=== PATIENT | male | born 1935 | race Caucasian/White ===

== ENCOUNTER 2018-08-27 11:27 | Inpatient (IN) ==
--- NOTE | 2018-08-27 12:04 | HISTORY AND PHYSICAL ---
PATIENT PROFILE: This is an 83-year-old white male, well known to me. PAST MEDICAL HISTORY: 1. Coronary artery disease. 2. Diabetes mellitus type 2. 3. Diffuse peripheral vascular disease. 4. 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 He has a history of benign prostatic hypertrophy, prostatitis. He had a history of diabetes mellitus type 2, history of cataracts surgery on 10/12/2013, history of chronic diastolic heart failure, history of chronic atrial fibrillation, history of hypercholesterolemia, history of osteoarthritis. 5. Peripheral vascular disease. 6. Fractured hip. PAST SURGICAL HISTORY: 1. ICD placement in November of 2008. 2. Double-vessel bypass in January of 2008. 3. Polypectomy. 4. Replacement defibrillator in December 2012. 5. Cataract surgery 2013. 6. Right hip surgery in 2016. SOCIAL HISTORY: Born in [facility]. Lived there most of his life. He is , 2 children. Rare alcohol drink. Does not use tobacco; quit in 2009. Former smoker; 2 packs a day for over 40 years. FAMILY HISTORY: Father age 73 from CVA, kidney failure. Mother at age 92 of a stroke. Father and mother with history of hypertension, heart problems and cancer. REVIEW OF SYSTEMS: General: No weight gain or loss. No fever or chills. HEENT: Unremarkable. Respiratory: No increased work of breathing or dyspnea. Cardiovascular: No chest pain or tachy palpitation. GI/: Unremarkable. Musculoskeletal/Neurologic: No focal complaints. He presents just with general weakness. His blood pressure still seems to be low. He is dropping things. His balance is poor. He denies fever or chills. Denies any pleuritic or squeezing or pressure chest pain. No hematochezia or hematuria. PHYSICAL EXAM: GENERAL: In my office, he is awake and alert. HEENT: Pupils are equal and round. Conjunctivae pink. NECK: CVP less than 6 cm. LUNGS: Clear in all lung ricketts. CARDIOVASCULAR EXAM: Regular rhythm and rate without murmur or S3. ABDOMEN: Soft, nontender, nondistended. SKIN: Warm and dry. No pedal edema. ASSESSMENT AND PLAN: 1. Just general weakness and hypotension. We are going to have to adjust his medications. I will look and see what his electrolytes and magnesium look like. I am also going to check cardiac enzymes, troponin and CPK, as well as thyroid and cortisol level, B 12 and folate. I will give him some fluids. He has not been drinking or eating much. He has lost some weight. 2. History of coronary artery disease. Aware. We will make sure there is no active ischemia. 3. Diabetes mellitus type 2. Will check hemoglobin A1c. Check pattern sugars. 4. Diffuse peripheral vascular disease, aware. 5. We have been following pancreatic cyst. 6. History of benign prostatic hypertrophy. 7. History of chronic atrial fibrillation. 8. History of osteoarthritis. We may need to check another echocardiogram and just look at his left ventricular function. cc: Miguel Angel Mcintosh MD
[2018-08-27] MEDS ORDERED: MILK OF MAGNESIA PO PRN (12:43)
[2018-08-27] MEDS ORDERED: TYLENOL PO PRN (12:43)
[2018-08-27] MEDS ORDERED: ZOFRAN IV PRN (12:43)
[2018-08-27] MEDS ORDERED: DULCOLAX PR PRN (12:43)
--- NOTE | 2018-08-27 13:01 | EKG Report ---
Test Performed on : 08/27/2018 12:42:21 PM Test Reason : chest pain Blood Pressure : / mmHG Vent. Rate : 081 BPM Atrial Rate : 136 BPM P-R Int : 000 ms QRS Dur : 172 ms QT Int : 456 ms P-R-T Axes : 000 264 092 degrees QTc Int : 529 ms Ventricular-paced rhythm 100% paced Biventricular pacemaker detected Abnormal ECG When compared with ECG of 29-MAY-2017 05:40, No significant change was found Confirmed by Barbara COHEN, Sukhdev Johnson ([id number]) on 08/27/2018 2:00:42 PM
[2018-08-27 13:49] LABS: BASO# 0.01 X1000 (0.0-0.2); BASO% 0.2 % (0.0-0.8); EOS# 0.04 X1000 (0.0-0.7); EOS% 0.6 % (0.0-10.0); HEMATOCRIT 42.2 % (42.0-52.0); HEMOGLOBIN 13.7 g/dL (14.0-18.0); LYMPH# 1.68 X1000 (1.2-3.4); LYMPH% 25.6 % (20.5-51.1); MCH 33.3 PG (27-31); MCHC 32.5 g/dL (33-37); MCV 102.4 FL (81-99); MONO# 0.57 X1000 (0.11-0.59); MONO% 8.7 % (1.7-9.3); NEUT# 4.27 X1000 (1.4-6.5); NEUT% 64.9 % (42.2-75.2); PLT 121 X1000 (130-400); RBC 4.12 XMIL (4.7-6.1); RDW 13.8 % (11.5-14.5); WBC 6.57 X1000 (4.8-10.8)
[2018-08-27 14:00] LABS: INR 1.54; PROTIME 19.7 Seconds (11.0-16.0)
[2018-08-27 14:01] LABS: PTT 40.8 Seconds (22.3-41.8)
[2018-08-27 14:21] LABS: AGAP 11; ALB/GLOB RATIO 1.4; ALBUMIN 4.3 g/dL (3.5-5.0); ALKALINE PHOSPHATASE 78 U/L (32-122); BUN 41 mg/dL (8-22); CALCIUM 9.5 mg/dL (8.8-10.2); CHLORIDE 101 mmol/L (98-107); CK PROFILE 44 U/L (24-204); COSMO 300; CREATININE 0.9 mg/dL (0.7-1.2); ESTIMATED GFR > 60; GLUCOSE 180 mg/dL (70-104); GOT 25 U/L (10-34); GPT 18 U/L (10-44); POTASSIUM 5.1 mmol/L (3.5-5.1); SODIUM 143 mmol/L (136-145); TCO2 31 mmol/L (25-35); TOTAL BILIRUBIN 1.17 mg/dL (0.20-1.00); TOTAL PROTEIN 7.4 g/dL (6.3-8.3)
[2018-08-27 14:50] LABS: T4 5.15 ug/dL (4.60-12.00); TSH 1.73 uIUmL (0.27-4.20)
[2018-08-27] MEDS: NS 1,000 ML IV SCH (16:46)
[2018-08-27] MEDS: TYLENOL PO SCH ×2 (16:46→22:10)
[2018-08-27] MEDS: FLOMAX PO SCH (20:23)
[2018-08-27] MEDS: PRILOSEC PO SCH (20:23)
[2018-08-27] MEDS: COLACE PO SCH (20:23)
[2018-08-27] MEDS: BETAPACE PO SCH (20:23)
[2018-08-27] MEDS: ELIQUIS PO SCH (20:23)
[2018-08-28] MEDS: TYLENOL PO SCH ×2 (05:08→12:29)
--- NOTE | 2018-08-28 08:25 | Diag Imaging Result Doc PS360 ---
EXAM: CHEST-2 VIEWS - 08/28/2018 HISTORY: weakness, copd TECHNIQUE: Chest two views COMPARISON: 07/25/2018 FINDINGS: Heart size appears mildly enlarged and stable. There are sternal wires from previous surgery and transvenous cardiac pacemaker again seen. The lungs appear essentially clear. There are small right pleural effusion versus mild pleural thickening similar to prior. There is no pneumothorax identified. IMPRESSION: Stable exam compared to prior. Mild cardiomegaly. Small right pleural effusion versus mild pleural thickening Electronically signed by Robert Acosta 08/28/2018 8:23 AM
[2018-08-28] MEDS ORDERED: LASIX IV ONE (08:31)
[2018-08-28] MEDS ORDERED: LASIX PO PRN (08:47)
[2018-08-28] MEDS ORDERED: ELIQUIS PO SCH (09:00)
--- NOTE | 2018-08-28 09:09 | PROGRESS NOTE ---
DATE: 08/28/2018 SUBJECTIVE: Mr. Christy is feeling better, still short of breath with any exertion. OBJECTIVE: Vital signs: Temp is 97.6, pulse 76, respirations 27, blood pressure 125/69. HEENT: Pupils are equal and round. Lungs: Clear in all lung ricketts. Cardiovascular: Regular rhythm and rate without murmur or S3. Abdomen: Soft. Skin: Warm and dry. Extremities: No pedal edema. STUDIES: His chest x-ray from this morning is stable, mild cardiomegaly, small right pleural effusions versus mild pleural thickening. His EKG showed paced rhythm. Echocardiogram done on the 25 of July: Technically difficult study. The aortic valve demonstrated mild sclerosis, trileaflet. The valve opening appeared to be mildly reduced. Peak gradient was 24 mmHg, mean gradient was 12 mmHg consistent with mild aortic stenosis. Tricuspid and pulmonic valves are without evidence of structural abnormality. PA pressure was estimated at 45-50 mmHg. Borderline left ventricular enlargement, upper wall thickness demonstrated. Estimated left ventricular ejection fraction 35% to 40% in the setting of very mild global hypokinesis, moderate basilar inferior wall hypokinesis. Left atrium mildly enlarged. ASSESSMENT AND PLAN: 1. He has mild systolic congestive heart failure. He has ICD pacemaker that appears to be predominantly paced rhythm. His blood pressure was low, and so I have backed down on some of his afterload. I will restart his Lasix and spironolactone. I will ask Dr. Kimbrough, who is his filling technician, to help assist in the direction we need to go. I think he feels a little better. 2. Coronary artery disease. Aware. No sign of active ischemia. 3. Diabetes mellitus type 2. Sugar is under good control. 4. Diffuse peripheral vascular disease. Aware. 5. We are following the pancreatic cyst which, thus far, appears to be benign. 6. History of benign prostatic hypertrophy. 7. Chronic atrial fibrillation. 8. Osteoarthritis. REVIEW OF HIS ORDERS: We will give him a dose of Lasix now IV and I will put him back on his spironolactone. He wanted to try a different pain medicine for his arthralgia. We may try some tramadol. cc: Miguel Angel Mcintosh MD
[2018-08-28] MEDS: ZOLOFT PO SCH (09:25)
[2018-08-28] MEDS: FLOMAX PO SCH ×2 (09:25→20:32)
[2018-08-28] MEDS: BETAPACE PO SCH ×2 (09:25→20:32)
[2018-08-28] MEDS: ALDACTONE PO SCH (09:25)
[2018-08-28] MEDS: PEPCID PO SCH (09:25)
[2018-08-28] MEDS: COLACE PO SCH ×2 (09:25→20:31)
[2018-08-28] MEDS: PRILOSEC PO SCH ×2 (09:25→20:32)
[2018-08-28] MEDS: ELIQUIS PO SCH ×2 (09:25→20:31)
[2018-08-28] MEDS: NS 1,000 ML IV SCH (09:26)
[2018-08-28] MEDS: PRINIVIL PO SCH ×2 (09:26→20:31)
[2018-08-28 10:13] LABS: AGAP 7; BUN 37 mg/dL (8-22); CALCIUM 8.7 mg/dL (8.8-10.2); CHLORIDE 100 mmol/L (98-107); COSMO 294; CREATININE 0.9 mg/dL (0.7-1.2); ESTIMATED GFR > 60; GLUCOSE 211 mg/dL (70-104); POTASSIUM 4.7 mmol/L (3.5-5.1); SODIUM 140 mmol/L (136-145); TCO2 33 mmol/L (25-35)
[2018-08-28 10:32] LABS: INR 1.47; PROTIME 18.9 Seconds (11.0-16.0)
[2018-08-28 10:35] LABS: D-DIMER 1.39 ug/mLFEU (0.0-0.52)
[2018-08-28 10:40] LABS: ALLEN TEST YES; BE 4.5 mmoll (-3.0-3.0); BLOOD TYPE ARTERIAL; HCO3-(ACT) 28.4 mmoll (20.0-26.0); METHB 1.2 % (0.0-1.5); O2(CT) 17.9 mL/dL (15.0-23.0); PO2(98.6) 101 mmHg (60-100); SAMPLE BLOOD; SAO2 98.9 % (95.0-100.0); THB 13.3 g/dL (11.5-17.4); pH(98.6) 7.31 (7.35-7.45)
[2018-08-28 10:41] LABS: MODALITY CANNULA; PCO2(98.6) 65 mmHg (35-45)
--- NOTE | 2018-08-28 11:06 | CARDIOLOGY CONSULTATION ---
DATE: 08/28/2018 REQUESTING PHYSICIAN: Miguel Angel Mcintosh MD REASON FOR CONSULTATION: Patient with progressive weakness, fatigue, shortness of breath, and shakiness. HISTORY OF PRESENT ILLNESS: Mr. Christy is an 84-year-old male who is normally followed by Dr. Kimbrough at their office. He presents with 1 week of progressive rapid decline in his functional capacity associated with exertional dyspnea. The patient denies having any chest pain. He has not had any recent falls. The patient was really not able to walk across the room and the decided to bring him to the Emergency Room for evaluation. After being brought to the hospital yesterday at about 10 o'clock or so he seems to have done better overnight. He is not having any complaints this morning. He is a little more awake. According to the he drifts into sleep and tends to sit down on the couch all day long. The patient denies having any chest pain. PAST MEDICAL HISTORY: His past history is positive for severe coronary artery disease. He has had previous bypass surgery. He has hypertension and hyperlipidemia. He has persistent atrial fibrillation or permanent atrial fibrillation. He has diabetes mellitus and peripheral vascular disease. He also vascular disease including the right axillary artery that is occluded. PAST SURGICAL HISTORY: He has had a previous pacemaker defibrillator implanted in the past. Most recent check was 06/16/2018 and that showed that he was in VVIR mode. The device is working properly. He is paced 94% of the time. No other issues with the pacemaker. This is a [employer]ator AP2781/40 [employer] Generator. The serial number is [id number]. This is a [employer] model. HOME MEDICATIONS: His home medications include apixaban 5 mg twice a day, docusate, furosemide 40 mg as directed, magnesium hydroxide, Zoloft 25 mg daily, Sotalol 80 mg twice a day, spironolactone 25 mg every other day, tramadol, zolpidem, tamsulosin, and amitriptyline. He also takes lisinopril 5 mg twice a day. REVIEW OF SYSTEMS: Other than the progressive deterioration nothing major. He had a heart cath in September of 2008 that showed a patent vein graft to the LAD , 40% stenosis of a vein graft to the marginal branch, and right coronary artery angiographically normal. The ejection fraction has been low. The last echo that we have recorded in the system shows an ejection fraction of 35% per Dr. Kimbrough in 2017. A myocardial perfusion stress test by Dr. Kimbrough on 07/25/2018 showed fixed mildly diminished activity in the apical inferior wall presumably due to soft tissue attenuation. No convincing scintigraphic evidence of ischemia. Ejection fraction of 20% by that study. Carotid Doppler ultrasound on 07/25/2018 showed [id number] burden of plaque in the bilateral carotid artery system with a retrograde right vertebral and antegrade left vertebral. A chest x-ray done today shows mild cardiomegaly and a small right pleural effusion. SOCIAL HISTORY: He has been to his for 33 or 34 years. This is his second . He is retired from [employer]. 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 He is busy. However, over the past few months he has slowed down. He has 3 children from a previous marriage. He quit smoking about 9 years ago. He is not drinking at this time. FAMILY HISTORY: Noncontributory. PHYSICAL EXAMINATION: Vital Signs: Blood pressure is 125/69, temperature 97.6 , pulse 76, and respirations 24. General: He is awake, alert, elderly, and somewhat frail- looking. No distress. HEENT: Unremarkable. Chest: Diminished breath sounds at the bases with some rhonchi in the left lung. Cardiovascular: Heart sounds are regular and rhythmic. I do not hear a definite gallop or murmur. Abdomen: The abdomen is nontender and soft. Extremities: The extremities show decreased pulses. No edema. Especially, the right upper extremity pulses are diminished. Neurological: Somewhat sluggish,although, he follows commands and moves all extremities.Asterixis appears to be present. DIAGNOSTIC DATA: Blood work: Sodium is 143, potassium 5.1, BUN 41, and creatinine 0.9. IMPRESSION: 1. A patient who presents with listlessness, weakness, fatigue, and increasing exertional dyspnea. This may be multifactorial. Probably low cardiac output state plus some metabolic issues. The patient has been having some shakiness and he looks as if he has asterixis. Likely component of metabolic encephalopathy. 2. Former smoker with chronic obstructive pulmonary disease. 3. Severe coronary artery disease with prior surgery. 4. Permanent atrial fibrillation. 5. Status post automatic implantable cardioverter defibrillator implantation for ischemic cardiomyopathy. 6. Possible prerenal azotemia. His hemoglobin level was 13.7 at the time of this admission. RECOMMENDATIONS: At this time we will check a number of things including an ammonia level and arterial blood gases to make sure he is not retaining carbon dioxide. We will check a pro BNP level, a D-dimer, and further advise will be forthcoming. Thank you for asking us to participate in his evaluation. We may want to do a followup echocardiogram also on him to make sure that his ejection fraction has not dramatically dropped. cc: MD Miguel Angel Novak MD MTDD
[2018-08-28] MEDS: GLUCOPHAGE PO SCH (18:12)
[2018-08-28] MEDS ORDERED: TYLENOL PO PRN (18:19)
--- NOTE | 2018-08-28 22:06 | CONSULTATION ---
DATE OF CONSULTATION: 08/28/2018 REASON FOR CONSULTATION: Abnormal ABG. HISTORY OF PRESENT ILLNESS: This is an 83-year-old male with a medical history of systolic congestive heart failure, atrial fibrillation, coronary artery disease , diabetes, peripheral vascular disease with occluded right axillary artery, benign pancreatic cyst, BPH, and hypercholesteremia. He has been directly admitted from Dr. Mcintosh's office to the CIC unit with worsening generalized weakness, SOB and lethargy over a week. Patient is resting quietly in the bed with BiPAP on at this time. He coughs occasionally with scant phlegm and has to remove the facial mask to wipe the sputum. His reports he has been awake for over 2 to 3 hours at an earlier time due to friends' visit. Most of information is from patient's . She reports patient couldn't stay awake for such a long time before hospitalization. Patient was lethargic and kind of confused most of time in the past week. He was so weak that he could only walk a few steps, then he had to take a break to catch his breath. Patient has poor appetite, dizziness, chronic dry cough with sputum rarely and wheezing. He has occasional bronchitis for over 28 years. He is not taking any inhalers at home. He has no fever, snoring, morning headache, chest pain, pedal edema or PND. PAST MEDICAL AND MEDICAL HISTORY: 1. Systolic congestive heart failure, echocardiogram on 08/27/2018 shows estimated EF 35-40%. 2. Atrial fibrillation, persistent or permanent, s/p an ICD placement in november 2008 and defibrillator replacement in December 2012; the last checkup in 01/2017 shows the device is working properly. 3. Coronary artery disease, severe with significant left ventricular dysfunction , s/p double vessel bypass in January 2008. 4. Diabetes mellitus type 2. 5. Diffuse peripheral vascular disease, including occluded right axillary artery. 6. Benign pancreatic cyst 7. Benign prostatic hyperplasia with obstructive voiding. 8. Hypercholesterolemia. 9. Right femur neck fracture s/p bipolar hemiarthroplasty on 05/27/2017. 10. Polypectomy 11. Bilateral cataract surgery in 2013 SOCIAL HISTORY: The patient is and lives with family. He used to smoke 1 to 2 packs per day for about 55 years, and quit in 05/2010. He used to drink heavily with hard liquor and currently drinks about 4 oz of [place] weekly; he has no history of illicit drug use. FAMILY HISTORY: Positive for kidney failure, CVA, and lung cancer. REVIEW OF SYSTEMS: A 10-point review of systems was conducted, and the pertinent is listed within the HPI, otherwise noncontributory. PHYSICAL EXAMINATION: Vital Signs: Temperature 97.3, blood pressure 126/75, pulse 79, respiratory rate 21, oxygen saturation 100% on BiPAP 15/6 with FiO2 30%. HEENT : Atraumatic. Trachea midline. Mucosa pink and slightly dry. Respiratory: Mild rhonchi noted bilaterally. Diminished breathing sounds bibasilarly. Cardiovascular: Regular rate and rhythm, without murmur noted. Gastrointestinal: Soft, nontender, nondistended. Normoactive bowel sounds in all 4 quadrants. Extremities: No pedal edema. No cyanosis. No clubbing. Dorsalis pedal pulses 2+ bilaterally. Neurologic: Alert and oriented x2. He is confused with the time and situation; Speech fluent. IMAGING DATA: Chest x-ray revealed small right pleural effusions vs. mild pleural thickening. LAB DATA: Sodium 140, potassium 4.7, chloride 100, carbon dioxide 33, BUN 37, creatinine 0.9, glucose 211. ProBNP 1799. ABG: pH 7.31, pCO2 of 65, PO2 101, HCO3 28.4, base excess of 4.5, and oxyhemoglobin 95.0. ASSESSMENT AND PLAN: This is an 84-year-old male with a medical history of systolic congestive heart failure, atrial fibrillation, coronary artery disease , diabetes, peripheral vascular disease with occluded right axillary artery, benign pancreatic cyst, BPH, hypercholesteremia, and femur fracture. He has been admitted to the [facility] with worsening generalized weakness with confusion and respiratory failure. 1. Generalized weakness, multifactorial, likely secondary to congestive heart failure, severe coronary artery disease, COPD, ongoing drinking and poor appetite. 2. Acute hypoxemic likely on chronic Hypercapnic respiratory failure. Patient is a former heavy smoker. He likely has COPD, but no exacerbation at this time. He needs an outpatient PFT. Continue BiPAP; supplemental oxygen as needed; Consider bronchodilators if needed; follow up ABG and CXR; consider CTPA to rule out PE. 3. Continue GI and DVT prophylaxis. Thank you for the courtesy of this consult. Dictated by BRENT Celis for Pasha De MD cc: BRENT Celis MD Allen J. Schmidt, MD [facility]
[2018-08-29 04:57] LABS: ALLEN TEST YES; BE 8.7 mmoll (-3.0-3.0); BLOOD TYPE ARTERIAL; HCO3-(ACT) 31.6 mmoll (20.0-26.0); METHB 1.4 % (0.0-1.5); O2(CT) 15.2 mL/dL (15.0-23.0); O2HB 92.9 % (95.0-99.0); PO2(98.6) 80 mmHg (60-100); SAMPLE BLOOD; SAO2 96.5 % (95.0-100.0); THB 11.6 g/dL (11.5-17.4); pH(98.6) 7.33 (7.35-7.45)
[2018-08-29 04:58] LABS: MODALITY BI PAP
[2018-08-29 04:59] LABS: PCO2(98.6) 70 mmHg (35-45)
[2018-08-29 06:26] LABS: AGAP 9; BUN 31 mg/dL (8-22); CALCIUM 8.6 mg/dL (8.8-10.2); CHLORIDE 100 mmol/L (98-107); COSMO 294; ESTIMATED GFR > 60; GLUCOSE 148 mg/dL (70-104); MAGNESIUM 1.9 mg/dL (1.5-2.7); POTASSIUM 4.4 mmol/L (3.5-5.1); SODIUM 143 mmol/L (136-145); TCO2 34 mmol/L (25-35)
[2018-08-29] MEDS: GLUCOPHAGE PO SCH ×2 (08:14→17:50)
[2018-08-29] MEDS: ELIQUIS PO SCH ×2 (08:14→20:01)
[2018-08-29] MEDS: PRILOSEC PO SCH ×2 (08:14→20:02)
[2018-08-29] MEDS: ZOLOFT PO SCH (08:14)
[2018-08-29] MEDS: COLACE PO SCH ×2 (08:15→20:01)
[2018-08-29] MEDS: FLOMAX PO SCH ×2 (08:15→20:02)
[2018-08-29] MEDS: PEPCID PO SCH (08:15)
--- NOTE | 2018-08-29 08:35 | Diag Imaging Result Doc PS360 ---
EXAM: CHEST-2 VIEWS 08/29/2018 HISTORY: chf, pleural effusion TECHNIQUE: PA and lateral chest COMMENT: There is blunting of the right costophrenic angle. This was also present at the time the previous study of 08/28/2018. There may be slightly more fluid on the right than on the previous study however. The heart size is at the upper limits of normal. Overall otherwise there has been no significant change in the appearance the chest. IMPRESSION: Right pleural effusion. Electronically signed by Tk Casey 08/29/2018 8:33 AM
[2018-08-29] MEDS: PRINIVIL PO SCH ×2 (08:48→20:01)
[2018-08-29] MEDS: BETAPACE PO SCH ×2 (08:49→20:02)
[2018-08-29] MEDS ORDERED: LASIX IV ONE (09:08)
--- NOTE | 2018-08-29 09:42 | PROGRESS NOTE ---
DATE: 08/29/2018 SUBJECTIVE: Mr. Christy felt a little better yesterday, but today he feels still he is fine at rest, but with any exertion he has quite a bit of dyspnea. He remains afebrile. OBJECTIVE: Vital Signs: Temperature 98.1 degrees, pulse 80, respirations 18, blood pressure 119/55. HEENT: Pupils were equal. Neck: He has a little more distention of neck veins today. CVP I am guessing around 10 cm from his left atrium. Lungs: Clear anterolateral. I do not hear any wheezing. No prolonged expiratory phase. He is on nasal O2. Cardiovascular: Regular rhythm and rate. PMI is nondisplaced. Abdomen: Soft. Extremities: No pedal edema. DIAGNOSTIC STUDIES: His chest x-ray from this morning still has a little right pleural effusion. Note, his D-dimer was a little elevated. On review of his lab from this morning, hematocrit and hemoglobin looked good, hematocrit 42, hemoglobin 13. His electrolytes looked good. Magnesium 1.9. Sodium 143, potassium 4.4, chloride 100, BUN 31, creatinine 1.0. Blood sugars 211, 161, 204 and 148, in sequence. ASSESSMENT AND PLAN: 1. He has underlying chronic obstructive pulmonary disease and he appears to have predominantly diastolic dysfunction. We are going to get a MUGA scan to look at his systolic performance, and I think we will get a CT angiogram and look at his lungs considering the possibility of pulmonary thromboemboli. Would like to look at his right-sided pressures as well to see if there is an element of cor pulmonale. Blood pressures have come up. He was running in the 80s and 90s. Blood pressure this morning was 119/55. His volume status looks pretty good. 2. History of coronary artery disease. Aware. I do not see any evidence of active ischemia. 3. Diabetes mellitus type 2. Continue to follow sugars, pattern sugars, sliding scale. 4. History of diffuse peripheral vascular disease. 5. He has a pancreatic cyst that appears benign and we have been following this for a couple of years. 6. Benign prostatic hypertrophy. 7. Chronic atrial fibrillation. There is a paced rhythm. I think it is single chamber paced. To recall, he has had an ICD placement in November 2008, double-vessel bypass in January 2008, and he had his defibrillator replaced in December 2012. 8. History of hypercholesterolemia. On review of his orders, he is on Eliquis 5 mg b.i.d. He is on Dulcolax 10 mg per rectum daily and docusate or Colace 100 mg b.i.d., Pepcid 20 mg a day, Lasix 40 mg a day, Prinivil 5 mg b.i.d., Glucophage 500 mg b.i.d., Prilosec 40 mg b.i.d., Zoloft 25 mg a day, Betapace 80 mg b.i.d., spironolactone 25 mg a day, and Flomax 0.4 mg b.i.d. cc: Miguel Angel Mcintosh MD
--- NOTE | 2018-08-29 09:51 | ECHO REPORT ---
ORDER DATE: 08/27/2018 INTERPRETING PHYSICIAN: DR. Leonid Alvarenga ECHOCARDIOGRAPHIC MEASUREMENTS: Interventricular septum: 0.9 cm. Left ventricular posterior wall: 0.9 cm. Diastolic diameter: 5.4 cm. Left atrium: 4.6 cm. Left ventricular systolic diameter 4.6. SUMMARY OF THE 2-DIMENSIONAL IMAGING: Technically suboptimal study. Very poor parasternal windows. Pacing leads were noted in the right chamber. There is biatrial enlargement. Mitral valve was normal. Tricuspid valve was normal. Aortic valve leaflets not well visualized. Pulmonic valve not well visualized. There is mild mitral regurgitation. Mild tricuspid regurgitation. Peak velocity across the tricuspid valve was 3 m/ sec. Pulmonary artery systolic pressure of 50 mmHg. Normal left ventricular cavity size. Estimated ejection fraction of 35% to 40% . There is global hypokinesis. Peak velocity across the aortic valve less than 2 m/sec . There is no aortic stenosis. There is mild aortic regurgitation. No pericardial effusion. cc: MD Miguel Angel Beltran MD [facility]
--- NOTE | 2018-08-29 10:47 | Diag Imaging Result Doc PS360 ---
EXAM: CT ANGIOGRM PULMONARY ARTERIES 08/29/2018 HISTORY: Elevated d dimer, shortness of breath TECHNIQUE: This exam was performed using automated exposure control, adjustment of mA or kV according to patient size, and/or use of iterative reconstruction technique. COMMENT: 3-D MIPS were performed. The study is compared with the previous examination of 03/11/2013. There are no filling defects in the pulmonary arteries. There is atherosclerotic calcification in the aorta and extensive calcification in the coronary arteries particularly in the left main coronary artery. There has been previous sternotomy. There is a large right pleural effusion. This is worse than on the previous study of 03/11/2013. There is also a small pleural fluid collection on the left which was not present previously. There is a precarinal node measuring 14 mm which is denser than on the previous examination, although previously this measured 13 mm in diameter. There is a prevascular node present on image 77 which measures 14 to 15 mm in transverse dimension and which was present at the time of the previous examination on image 60 and measured 14 mm at that time. Otherwise there has been no significant change in the appearance of the mediastinum. There are some emphysematous changes particularly in the anterior left upper lobe. There is a tiny nodule on image 55 in the right upper lobe near the pleural surface posterior laterally. This is not identifiable on the previous study. There is some compressive atelectasis particularly in the right lower lobe. There is a lobulated nodule in the lingula on image 101 measuring 10 mm which was not present on the previous study. There are spondylotic changes in the thoracic spine. There has been no significant change in the visualized portions of the abdomen. There are gallstones in the gallbladder. IMPRESSION: No evidence of pulmonary emboli. Right pleural effusion. New pulmonary nodules bilaterally. The possibility of metastatic disease cannot be excluded. Electronically signed by Tk Casey 08/29/2018 10:45 AM
--- NOTE | 2018-08-29 20:18 | PROGRESS NOTE ---
DATE: 08/29/2018 SUBJECTIVE: Patient continues without much shortness of breath at rest. There has been no chest pain. OBJECTIVE: Vital Signs: Blood pressure 107/50, heart rate 81, oxygen saturation 92% on room air. The patient currently on nasal cannula oxygen at 1 L/minute. Neck: Jugular venous distention is present suggesting elevated central venous pressure. Chest: Auscultation of the chest reveals some diminished breath sounds in the right base posteriorly. Above this region is an area of coarse inspiratory crackles. There is a small amount of inspiratory crackles in the left base. There is somewhat diminished breath sounds diffusely in other regions. Cardiac Exam: Reveals irregular rate and rhythm without appreciable murmur or gallop. Extremities: Without edema. LABORATORY DATA: Includes arterial blood gas with pH of 7.33, pCO2 of 70, PO2 of 80 with a bicarb of 31.6 on BiPAP. Sodium 143, potassium 4.4, chloride 100, carbon dioxide 34, BUN 31, creatinine 1.0, glucose 148. Pro B-natriuretic peptide level 1799. Albumin on admission 4.3. D-dimer abnormal. Chest CT scan obtained reports no evidence of pulmonary embolus. A sizable right pleural effusion is reported. There are a few pulmonary nodules of questionable nature. Echocardiography is technically difficult. Left ventricular ejection fraction reported at 35 to 40 percent. Mild tricuspid regurgitation reported. There is moderate pulmonary hypertension with estimated systolic PA pressure of 40. MUGA scan reports left ventricular ejection fraction 50%. IMPRESSION: 1. Respiratory failure which is probably multifactorial with contribution from chronic obstructive pulmonary disease, congestive heart failure predominantly right-sided and pleural effusion. 2. Chronic obstructive pulmonary disease. 3. Atherosclerotic coronary disease with history of previous coronary bypass. The patient has ischemic cardiomyopathy of mild to moderate severity. There does not appear to be a significant decrease in his left ventricular systolic performance. In fact, MUGA scan suggests improvement his left ventricular systolic function. 4. Pulmonary nodules of questionable significance. 5. Diabetes mellitus type 2. 6. Peripheral vascular disease. 7. Chronic atrial fibrillation. 8. Status post implantable defibrillator which has been upgraded to a biventricular pacer implantable cardioverter defibrillator. RECOMMENDATIONS: 1. Continue diuresis with intravenous Lasix. 2. Continue to evaluate and manage for COPD. 3. Consideration to be given to right thoracentesis. At present he does not appear to be in any distress and thoracentesis may be more considered for diagnostic purposes if felt needed by pulmonary. cc: MD Miguel Angel Woo MD
--- NOTE | 2018-08-29 23:19 | Diag Imaging Result Document ---
PROCEDURE NAME: MUGA (GATED CARDIAC SCAN) - 08/29/2018 INDICATION: Assess LV function secondary to difficult quality echo. PROCEDURE IN DETAIL: Mr. Christy was brought to the nuclear laboratory and had 22.4 mCi of radiotracer injected with usual imaging protocol utilized. FINDINGS: 1. The LV systolic function was calculated to be 50%. 2. There is no clear evidence of wall motion abnormalities. RV function appeared intact as well. 3. No evidence of abnormal extracardiac uptake. 4. On visual inspection, the ejection fraction actually does appear to be more vigorous than 50%, probably in the 55% to 60% range. cc: MD Dread Woods MD
[2018-08-30 05:10] LABS: ALLEN TEST YES; BLOOD TYPE ARTERIAL; HCO3-(ACT) 31.9 mmoll (20.0-26.0); METHB 1.4 % (0.0-1.5); O2(CT) 17.1 mL/dL (15.0-23.0); O2HB 95.5 % (95.0-99.0); PO2(98.6) 117 mmHg (60-100); SAMPLE BLOOD; THB 12.6 g/dL (11.5-17.4); pH(98.6) 7.36 (7.35-7.45)
[2018-08-30 05:11] LABS: PCO2(98.6) 65 mmHg (35-45)
[2018-08-30 05:12] LABS: MODALITY BI PAP
[2018-08-30] MEDS: COLACE PO SCH ×2 (08:22→21:12)
[2018-08-30] MEDS: PEPCID PO SCH (08:22)
[2018-08-30] MEDS: ZOLOFT PO SCH (08:22)
[2018-08-30] MEDS: FLOMAX PO SCH ×2 (08:22→21:13)
[2018-08-30] MEDS: GLUCOPHAGE PO SCH ×2 (08:22→17:48)
[2018-08-30] MEDS: PRILOSEC PO SCH ×2 (08:22→21:13)
[2018-08-30] MEDS: BETAPACE PO SCH ×2 (08:22→21:12)
[2018-08-30] MEDS: ALDACTONE PO SCH (08:22)
[2018-08-30] MEDS: PRINIVIL PO SCH ×2 (08:23→21:13)
[2018-08-30] MEDS: ELIQUIS PO SCH ×2 (08:23→21:12)
[2018-08-30] MEDS ORDERED: LASIX IV SCH (09:00)
--- NOTE | 2018-08-30 10:26 | PROGRESS NOTE ---
DATE: 08/30/2018 Mr. Christy is feeling better today. He has got more energy, a little more strength, breathing more comfortably. OBJECTIVE: VITAL SIGNS: Temperature 98.1 degrees, pulse 74, respirations 16, blood pressure 106/63. HEENT: Pupils are equal and round. LUNGS: Clear in all lung ricketts. Decreased breath sounds in the right base. CARDIOVASCULAR: Regular rhythm and rate without murmur or S3. ABDOMEN: Soft. SKIN: Warm and dry. Blood sugars 141, 259, 170. ASSESSMENT AND PLAN: 1. Respiratory failure, probably multifactorial, contribution from chronic COPD, systolic and diastolic dysfunction, right-sided pleural effusion. There was some lymphadenopathy appreciated there as well. The right pleural fluid, I am going to ask Dr. De to look at his CT and his pleural fluid and see if we need to tap that. 2. COPD. 3. Coronary artery disease, history of previous coronary bypass. Patient has had ischemic cardiomyopathy, mild to moderate severity. Does not seem to have significant decrease in left ventricular performance. The MUGA scan suggests improvement in the left ventricular systolic function. 4. Pulmonary nodules, questionable significance. 5. Diabetes mellitus type 2. 6. Peripheral vascular disease. 7. Chronic atrial fibrillation, has a pacemaker, rate is controlled. 8. Status post implantable defibrillator which has been upgraded to a biventricular pacer implantable cardioverter defibrillator. Review of his lab from the 30: Hematocrit and hemoglobin look good. His electrolytes, serum creatinine looked good. We will check those again in the morning. We will consult Dr. De to see if he can help look at the CT scan and see if we need to tap his right pleural fluid and the significance of his new pulmonary nodules bilaterally. cc: Miguel Angel Mcintosh MD
--- NOTE | 2018-08-30 23:29 | PROGRESS NOTE ---
DATE: 08/30/2018 CARDIOLOGY FOLLOWUP NOTE: SUBJECTIVE: The patient denies shortness of breath and relates some improvement in how he feels overall. Nevertheless, he continues feeling weak overall. OBJECTIVE: Blood pressure 102/54, heart rate 76, oxygen saturation 100% on low-dose nasal cannula oxygen. Neck vein distention is not discerned. Chest: Auscultation of chest reveals diminished breath sounds in the right base posteriorly. There are a few coarse crackles just above the region of diminished breath sounds in the right base and a few coarse crackles in the left base. Cardiac exam: Reveals a regular rate and rhythm without appreciable murmur or gallop. There is no evidence of peripheral edema. IMPRESSION: 1. Respiratory failure which is probably multifactorial with combination for chronic obstructive pulmonary disease, congestive heart failure, predominantly right sided, and pleural effusion. 2. Chronic obstructive pulmonary disease. 3. Atherosclerotic coronary artery disease with history of previous coronary bypass grafting. The patient has ischemic cardiomyopathy of mild severity. Based on noninvasive studies, his left ventricular systolic performance has not decreased and, in fact, appears by MUGA scan to have improved. There has been no angina. 4. Small pulmonary nodules of questionable significance. 5. Diabetes mellitus type 2. 6. Peripheral vascular disease. 7. Chronic atrial fibrillation. 8. Status post biventricular pacer/implantable cardioverter defibrillator. RECOMMENDATIONS: 1. Transition to oral Lasix. 2. Consider merits of thoracentesis. Await pulmonary opinion regarding this. cc: MD Miguel Angel Woo MD
[2018-08-31 05:07] LABS: ALLEN TEST YES; BLOOD TYPE ARTERIAL; HCO3-(ACT) 32.7 mmoll (20.0-26.0); O2(CT) 16.1 mL/dL (15.0-23.0); O2HB 95.4 % (95.0-99.0); PO2(98.6) 95 mmHg (60-100); SAMPLE BLOOD; SAO2 98.2 % (95.0-100.0); THB 11.9 g/dL (11.5-17.4); pH(98.6) 7.34 (7.35-7.45)
[2018-08-31 05:09] LABS: PCO2(98.6) 71 mmHg (35-45)
[2018-08-31 05:10] LABS: MODALITY BI PAP
[2018-08-31 06:36] LABS: AGAP 8; ALB/GLOB RATIO 1.6; ALBUMIN 3.5 g/dL (3.5-5.0); ALKALINE PHOSPHATASE 90 U/L (32-122); BUN 26 mg/dL (8-22); CALCIUM 8.9 mg/dL (8.8-10.2); CHLORIDE 100 mmol/L (98-107); COSMO 292; CREATININE 0.9 mg/dL (0.7-1.2); ESTIMATED GFR > 60; GLUCOSE 168 mg/dL (70-104); GOT 18 U/L (10-34); GPT 13 U/L (10-44); MAGNESIUM 1.8 mg/dL (1.5-2.7); POTASSIUM 4.3 mmol/L (3.5-5.1); SODIUM 142 mmol/L (136-145); TCO2 34 mmol/L (25-35); TOTAL BILIRUBIN 0.62 mg/dL (0.20-1.00); TOTAL PROTEIN 5.7 g/dL (6.3-8.3)
--- NOTE | 2018-08-31 08:23 | PROGRESS NOTE ---
DATE: 08/31/2018 SUBJECTIVE: Mr. Christy is feeling a little better, breathing a little better. stated that he had a better day yesterday, and was on his phone and on the internet a little bit. He is still using BiPAP at night. He remains afebrile. OBJECTIVE: Vital Signs: Temperature 97.9 degrees, pulse 72, respirations 15, blood pressure 106/75. HEENT: Pupils are equal and round. Lungs: Clear in all lung ricketts. Cardiovascular Examination: Regular rhythm and rate without murmur or S3. Neck: Neck veins really not distended and CVP appears to be less than 8 cm from the right atrium. Extremities: No pedal edema. Is and Os: Urine output was 1100 mL. Laboratory Data: Blood sugar was 170, 213, 156. ASSESSMENT AND PLAN: 1. Respiratory failure which is probably multifactorial, a combination of chronic obstructive pulmonary disease, congestive heart failure, predominantly right-sided, and pleural effusion on the right. Continue to use BiPAP at night and supplementary oxygen and bronchodilators. Dr. De was consulted. We did do a CT angiogram. He has a right pleural effusion which is significant. There are new pulmonary nodules bilaterally. Possibly, these could represent metastatic disease but we may need to do a right pleurocentesis just to help with a diagnosis. 2. Chronic obstructive pulmonary disease. 3. Atherosclerotic coronary artery disease, history of previous coronary artery bypass grafting. He has ischemic cardiomyopathy of mild severity, noninvasive test on the left ventricle. His MUGA scan seemed to show that his ejection fraction is improved. No sign of angina. 4. Small pulmonary nodules, questionable significance. 5. Diabetes mellitus type 2. 6. Peripheral vascular disease. 7. Chronic atrial fibrillation, rate is controlled. 8. Status post biventricular pacer implantable defibrillator. REVIEW OF HIS ORDERS: He is on Eliquis 5 mg twice a day, Colace 100 mg b.i.d., Pepcid 20 mg a day, Lasix 40 mg a day, Prinivil 5 mg b.i.d., metformin 500 mg b.i.d., Prilosec 40 mg b.i.d., Zoloft 25 mg a day, Betapace 80 mg b.i.d., spironolactone 25 mg which I think he takes every other day, and Flomax 0.4 mg b.i.d. cc: Miguel Angel Mcintosh MD
[2018-08-31] MEDS: PEPCID PO SCH (09:10)
[2018-08-31] MEDS: LASIX PO SCH (09:10)
[2018-08-31] MEDS: ELIQUIS PO SCH (09:10)
[2018-08-31] MEDS: FLOMAX PO SCH ×2 (09:10→20:25)
[2018-08-31] MEDS: PRILOSEC PO SCH ×2 (09:10→20:25)
[2018-08-31] MEDS: ZOLOFT PO SCH (09:10)
[2018-08-31] MEDS: COLACE PO SCH ×2 (09:10→20:25)
[2018-08-31] MEDS: BETAPACE PO SCH ×2 (09:10→20:25)
[2018-08-31] MEDS: GLUCOPHAGE PO SCH ×2 (09:11→17:19)
[2018-08-31] MEDS: PRINIVIL PO SCH ×2 (10:41→20:25)
[2018-09-01 03:41] LABS: ALLEN TEST YES; BLOOD TYPE ARTERIAL; HCO3-(ACT) 34.3 mmoll (20.0-26.0); METHB 1.1 % (0.0-1.5); O2(CT) 16.1 mL/dL (15.0-23.0); O2HB 95.7 % (95.0-99.0); PO2(98.6) 101 mmHg (60-100); SAMPLE BLOOD; SAO2 98.8 % (95.0-100.0); THB 11.9 g/dL (11.5-17.4); pH(98.6) 7.37 (7.35-7.45)
[2018-09-01 03:42] LABS: MODALITY BI PAP; PCO2(98.6) 69 mmHg (35-45)
--- NOTE | 2018-09-01 08:15 | Diag Imaging Result Doc PS360 ---
EXAM: CHEST-PORTABLE INDICATION: copd , pleural effusion TECHNIQUE: One view COMPARISON: 08/29/2018 FINDINGS: There is a small amount of fissural fluid on the right at the lower lung zone. No new consolidation is identified, otherwise. Cardiac silhouette is stable. IMPRESSION: Small amount of fissural pleural fluid on the right. Stable chest, otherwise. Electronically signed by Leonardo Tabares 09/01/2018 8:12 AM
--- NOTE | 2018-09-01 09:09 | PROGRESS NOTE ---
DATE: 09/01/2018 SUBJECTIVE: Mr. Christy did have a good night. He does not tolerate the BiPAP. Did not sleep much at all, so he just wore out. OBJECTIVE: Vital Signs: Temperature 97.5 degrees, pulse 80, respirations 18, blood pressure 114/67. Pupils: Are equal and round. Lungs: Clear in all lung ricketts. Cardiovascular: Regular rhythm and rate without murmur or S3. Abdomen: Soft. Skin: Warm and dry. Urine output 2200 mL. Blood sugar 156, 186, and 210. Chest x-ray: Small amount of official pleural fluid in the right, stable otherwise. ASSESSMENT AND PLAN: 1. Respiratory failure, multifactorial. Combination of chronic obstructive pulmonary disease and congestive heart failure, predominantly right-sided. 2. Pleural effusion on the right, which considering maybe trying to tap. The CT angiogram did not show infiltrate, but showed right pleural effusions and pulmonary nodules bilaterally. 3. Chronic obstructive pulmonary disease. 4. History of atherosclerotic coronary artery disease, previous coronary bypass grafting, ischemic cardiomyopathy of mild severity. He does have some systolic dysfunction, predominantly more right-sided symptoms though. Recent MUGA scan seems to suggest his ejection fraction has improved. 5. Pulmonary nodules questionable significance. 6. Diabetes mellitus type 2. 7. Peripheral vascular disease. 8. Chronic atrial fibrillation, rate is controlled. 9. Status post biventricular pacemaker/implantable defibrillator. It does not appear he can tolerate the BiPAP. I am holding the Eliquis in case Dr. De decides to pursue his pleural fluid. REVIEW OF HIS LAB FROM YESTERDAY: Sodium 142, potassium 4.3, chloride 100, BUN 26, creatinine 0.9, blood sugar 160, 156, 178, and 186. REVIEW OF HIS ORDERS: I do not see any changes at this point. cc: Miguel Angel Mcintosh MD
[2018-09-01 09:34] LABS: BASO# 0.01 X1000 (0.0-0.2); BASO% 0.2 % (0.0-0.8); EOS% 1.5 % (0.0-10.0); HEMATOCRIT 42.5 % (42.0-52.0); HEMOGLOBIN 13.3 g/dL (14.0-18.0); LYMPH% 21.6 % (20.5-51.1); MCH 32.6 PG (27-31); MCHC 31.3 g/dL (33-37); MCV 104.2 FL (81-99); MONO# 0.66 X1000 (0.11-0.59); MONO% 10.2 % (1.7-9.3); MPV 10.9 FL (7.4-10.4); NEUT# 4.32 X1000 (1.4-6.5); NEUT% 66.5 % (42.2-75.2); PLT 127 X1000 (130-400); RBC 4.08 XMIL (4.7-6.1); RDW 13.2 % (11.5-14.5); WBC 6.49 X1000 (4.8-10.8)
[2018-09-01 09:39] LABS: INR 1.2; PROTIME 16.2 Seconds (11.0-16.0)
[2018-09-01 09:40] LABS: PTT 37.5 Seconds (22.3-41.8)
[2018-09-01 10:19] LABS: AGAP 12; BUN 25 mg/dL (8-22); CHLORIDE 97 mmol/L (98-107); COSMO 293; CREATININE 0.9 mg/dL (0.7-1.2); ESTIMATED GFR > 60; GLUCOSE 172 mg/dL (70-104); MAGNESIUM 1.8 mg/dL (1.5-2.7); POTASSIUM 4.6 mmol/L (3.5-5.1); SODIUM 143 mmol/L (136-145); TCO2 34 mmol/L (25-35)
--- NOTE | 2018-09-01 11:13 | Diag Imaging Result Doc PS360 ---
EXAM: CHEST-2 VIEWS INDICATION: POST US THORACENTESIS TECHNIQUE: 2 views COMPARISON: 09/01/2018 FINDINGS: There is no evidence of pneumothorax status post right thoracentesis. The fissural fluid seen on the previous study has grossly resolved as a result of the thoracentesis. No new consolidation is identified. Cardiac silhouette is stable. IMPRESSION: No evidence of pneumothorax status post right thoracentesis. Electronically signed by Leonardo Tabares 09/01/2018 11:10 AM
--- NOTE | 2018-09-01 11:14 | Diag Imaging Result Doc PS360 ---
EXAM: US THORACENTESIS W/IMAGE GUIDE INDICATION: Therapeutic and Diagnostic TECHNIQUE: COMPARISON: None. FINDINGS: Risks, benefits, and alternatives were discussed with the patient and informed consent was obtained. The patient was prepped and draped in sterile fashion and local anesthesia was achieved with 1% lidocaine solution. Using ultrasound guidance, a large bore catheter was inserted into the right pleural space and 800 mL of straw-colored serous fluid was aspirated and sent for laboratory analysis. There were no known complications. A postprocedural chest radiograph showed no pneumothorax. IMPRESSION: Technically successful ultrasound-guided right thoracentesis. Electronically signed by Leonardo Tabares 09/01/2018 11:12 AM
[2018-09-01 11:56] LABS: SPECIMEN PLEURAL FLUID
[2018-09-01 12:12] LABS: TOTAL PROT BODY FLUID 1.9 g/dL
[2018-09-01 12:22] LABS: BODY FLUID SOURCE PLEURAL FLUID; WBC BF 305 /cumm
[2018-09-01 12:24] LABS: POLYS 2 %
[2018-09-01 12:25] LABS: MONOS 98 %
[2018-09-01 12:26] LABS: AMYLASE BODY FLUID 29 U/L; GLUCOSE BODY FLUID 191 mg/dL; LDH BODY FLUID 59 U/L
[2018-09-01] MEDS: PEPCID PO SCH (12:28)
[2018-09-01] MEDS: ZOLOFT PO SCH (12:28)
[2018-09-01] MEDS: GLUCOPHAGE PO SCH ×2 (12:28→17:10)
[2018-09-01] MEDS: ALDACTONE PO SCH (12:28)
[2018-09-01] MEDS: BETAPACE PO SCH ×2 (12:28→20:52)
[2018-09-01] MEDS: PRILOSEC PO SCH ×2 (12:28→20:52)
[2018-09-01] MEDS: LASIX PO SCH (12:29)
[2018-09-01] MEDS: PRINIVIL PO SCH ×2 (12:29→20:52)
[2018-09-01] MEDS: COLACE PO SCH ×2 (12:29→20:52)
[2018-09-01] MEDS: FLOMAX PO SCH ×2 (12:29→20:52)
--- NOTE | 2018-09-01 16:46 | PROGRESS NOTE ---
DATE: 09/01/2018 SUBJECTIVE: Patient status post right thoracentesis today without incident. He is quite drowsy and reportedly did not sleep well last night as he seems to not tolerate the BiPAP very well. He denies any shortness of breath at rest, on room air. OBJECTIVE: Vital Signs: Blood pressure 116/67, heart rate 80, oxygen saturation 95% on nasal cannula oxygen at 1 L/minute. Chest: Clear to auscultation. Cardiac: Exam reveals a regular rate and rhythm without appreciable murmur or gallop. Jugular venous pressure appears to be borderline elevated based on inspection of the neck veins. There is no evidence of peripheral edema. DIAGNOSTIC STUDIES: Repeat chest x-ray reviewed, post thoracentesis reveals no evidence of pneumothorax. Pleural effusion is removed. There is no evidence of pulmonary edema. IMPRESSION: 1. Multifactorial respiratory failure. He has some tendency for hypoventilation manifested in his hypercapnia. Suspect significant chronic obstructive pulmonary disease, but he has had some congestive heart failure predominantly right-sided with associated pleural effusion. 2. Chronic obstructive pulmonary disease. 3. Atherosclerotic coronary disease with previous coronary bypass grafting in the past. He has mild to moderate ischemic cardiomyopathy. There has been no angina. 4. Small pulmonary nodules of questionable significance. 5. Diabetes mellitus type 2. 6. Peripheral vascular disease. 7. Chronic atrial fibrillation. 8. Status post biventricular pacemaker/implantable cardioverter-defibrillator. RECOMMENDATIONS: 1. Continue oral Lasix. 2. Repeat arterial blood gas tomorrow morning. 3. He appears to be approaching maximal hospital benefit and potentially might be able to go home tomorrow to have further followup and evaluation as an outpatient. cc: MD Miguel Angel Woo MD
[2018-09-02] MEDS: LASIX PO SCH (08:02)
[2018-09-02] MEDS: BETAPACE PO SCH ×2 (08:02→20:16)
[2018-09-02] MEDS: COLACE PO SCH ×2 (08:02→20:16)
[2018-09-02] MEDS: GLUCOPHAGE PO SCH ×2 (08:02→17:50)
[2018-09-02] MEDS: FLOMAX PO SCH ×2 (08:02→20:16)
[2018-09-02] MEDS: ZOLOFT PO SCH (08:02)
[2018-09-02] MEDS: PEPCID PO SCH (08:02)
[2018-09-02] MEDS: PRINIVIL PO SCH ×2 (08:02→20:16)
[2018-09-02] MEDS: PRILOSEC PO SCH ×2 (08:02→20:17)
[2018-09-02 08:11] LABS: ALLEN TEST YES; BE 11.6 mmoll (-3.0-3.0); BLOOD TYPE ARTERIAL; HCO3-(ACT) 33.8 mmoll (20.0-26.0); METHB 1.3 % (0.0-1.5); O2(CT) 15.5 mL/dL (15.0-23.0); PO2(98.6) 55 mmHg (60-100); SAMPLE BLOOD; SAO2 93.1 % (95.0-100.0); THB 12.4 g/dL (11.5-17.4); pH(98.6) 7.42 (7.35-7.45)
[2018-09-02 08:16] LABS: PCO2(98.6) 59 mmHg (35-45)
[2018-09-02 08:17] LABS: MODALITY ROOM AIR
--- NOTE | 2018-09-02 09:48 | PROGRESS NOTE ---
DATE: 09/02/2018 SUBJECTIVE: Mr. Christy had a much better night. He slept through the night. He feels better this morning, sitting up in a chair, breathing comfortably. OBJECTIVE: Vital Signs: Temperature 97.6 degrees, pulse 79, respirations 15, blood pressure 116/60. Urine output 600 mL. HEENT: Pupils are equal and round. Lungs: Clear in all lung ricketts. Cardiovascular: Regular rhythm and rate without murmur or S3. Abdomen: Soft. Skin: Warm and dry. LABORATORY DATA: Blood sugar 210, 296, 170. ASSESSMENT AND PLAN: 1. Multifactorial respiratory failure. The main component is chronic obstructive pulmonary disease and CO2 retention. He will need O2 per nasal cannula. He does not tolerate the BiPAP. He also has mild systolic dysfunction, which appears to be well-compensated, and he had some hypotension. Medications were adjusted. I think he was a little bit volume contracted when he came into the hospital and then he has predominantly right-sided symptoms from elevated right ventricular pressure, and he was very tired wore out. He is doing a little better. We are going to start physical therapy. Hope to get him out of the hospital tomorrow. I appreciate the help of Dr. De. We tapped his right pleural effusion. It looks like it is going to be transudate. Await the studies. 2. History of coronary artery disease, previous coronary bypass with ischemic cardiomyopathy. 3. He has a biventricular pacemaker defibrillator. 4. Pulmonary nodules of questionable significance. We are waiting on the pleural fluid studies, but do not see any definitive evidence that this is a malignant process. 5. Diabetes mellitus type 2. Sugars well-controlled. 6. Peripheral vascular disease. Aware. 7. Chronic atrial fibrillation. His rate is controlled. Will put him back on his Eliquis. Blood pressure looks to be optimal at this time. 8. Benign prostatic hypertrophy, for which he takes Flomax. cc: Miguel Angel Mcintosh MD
--- NOTE | 2018-09-02 18:02 | PROGRESS NOTE ---
DATE: 09/02/2018 SUBJECTIVE: The patient feels better today following thoracentesis yesterday. He still feels weak overall. He denies shortness of breath at rest on room air. There has been no chest pain. OBJECTIVE: Vital Signs: Blood pressure 106/57, heart rate 88, oxygen saturation 92% on room air. There is no significant jugular venous distention. Chest: Auscultation of the chest reveals few coarse inspiratory crackles in the bases bilaterally more so on the right base. Cardiac Exam: Reveals a regular rate and rhythm without appreciable murmur or gallop. There is no evidence of peripheral edema. LABORATORY DATA: Includes an arterial blood gas on room air pH 7.42, pCO2 59, PO2 55, bicarb 33.8. IMPRESSION: 1. Dyspnea, multifactorial with significant underlying chronic obstructive pulmonary disease apparent. Right-sided congestive heart failure with pleural effusion also increasing tendency for dyspnea. Patient clinically improving. 2. Chronic obstructive pulmonary disease. 3. Atherosclerotic coronary disease with history of previous coronary bypass grafting in the past. He has mild ischemic cardiomyopathy by noninvasive studies. There has been no angina. 4. Small pulmonary nodules of questionable significance. Lab on pleural fluid appears to be more transudative. Further workup pending. 5. Type 2 diabetes mellitus. 6. Peripheral vascular disease. 7. Chronic atrial fibrillation. 8. Status post biventricular pacemaker/implantable defibrillator. RECOMMENDATIONS: 1. Continue oral Lasix. 2. Continue medical management of patient's coronary atherosclerosis. 3. Resume anticoagulation with Eliquis. 4. Continue sotalol which appears to be maintaining sinus rhythm. 5. Reasonable for patient to be discharged to home soon have further followup as outpatient. I will be glad to see him in approximately 2 weeks following discharge. cc: MD Miguel Angel Woo MD
[2018-09-02] MEDS: ELIQUIS PO SCH (20:16)
[2018-09-03 03:51] LABS: ALLEN TEST YES; BLOOD TYPE ARTERIAL; METHB 0.9 % (0.0-1.5); O2(CT) 10.8 mL/dL (15.0-23.0); O2HB 92.6 % (95.0-99.0); PO2(98.6) 64 mmHg (60-100); SAMPLE BLOOD; THB 8.2 g/dL (11.5-17.4); pH(98.6) 7.44 (7.35-7.45)
[2018-09-03 03:53] LABS: MODALITY ROOM AIR; PCO2(98.6) 57 mmHg (35-45)
--- NOTE | 2018-09-03 07:35 | Diag Imaging Result Doc PS360 ---
EXAM: CHEST-1 VIEW HISTORY: SOB TECHNIQUE: Chest single view COMPARISON: 09/01/2018 FINDINGS: The lungs are well expanded. The heart remains enlarged. There are sternal wires and left-sided pacemaker. No pneumothorax. No pleural effusions identified. Mild vascular distention. IMPRESSION: Stable chest. Electronically signed by Gera Danielson 09/03/2018 7:33 AM
[2018-09-03 08:46] VITALS: BP 107/60
[2018-09-03] MEDS: ALDACTONE PO SCH (08:47)
[2018-09-03] MEDS: ELIQUIS PO SCH (08:47)
[2018-09-03] MEDS: ZOLOFT PO SCH (08:47)
[2018-09-03] MEDS: PEPCID PO SCH (08:47)
[2018-09-03] MEDS: LASIX PO SCH (08:47)
[2018-09-03] MEDS: BETAPACE PO SCH (08:47)
[2018-09-03] MEDS: FLOMAX PO SCH (08:47)
[2018-09-03] MEDS: COLACE PO SCH (08:47)
[2018-09-03] MEDS: GLUCOPHAGE PO SCH (08:47)
[2018-09-03] MEDS: PRILOSEC PO SCH (08:47)
[2018-09-03] MEDS: PRINIVIL PO SCH (08:47)
[2018-09-03 09:05] LABS: O2HB 89.2 % (95.0-99.0)
--- NOTE | 2018-09-03 09:27 | DISCHARGE SUMMARY ---
ADMISSION DATE: 08/27/2018 DISCHARGE DATE: 09/03/2018 This is an 83-year-old patient of mine, well known to me. PAST MEDICAL HISTORY: 1. Coronary artery disease. 2. Diabetes mellitus type 2. 3. Diffuse peripheral vascular disease. 4. 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 5. He has had cataract surgery back on 10/12/2013. 6. History of diastolic and systolic congestive heart failure. 7. History of atrial fibrillation. 8. Hypercholesterolemia. 9. Osteoarthritis. 10. History of fractured hip. PAST SURGICAL HISTORY: 1. ICD biventricular pacemaker in November 2008. 2. Double-vessel bypass in January 2008. 3. Polypectomy. 4. Placement of defibrillator in December 2012. I think that is when they put a biventricular pacemaker in. 5. Cataract surgery in 2013. 6. Right hip surgery in 2016. The patient presented to the office with increased shortness of breath. I had been following in the office. His blood pressure was in the 80s and 90s systolic, so we had made some adjustments on medicine. He was short of breath and very weak, and he did have a right pleural effusion, so we repeated an echocardiogram on 08/27/2018. It appeared his pulmonary artery pressures were 50 mm Hg. His estimated ejection fraction was 35 to 40 percent and there was global hypokinesis. His chest x-ray done on 08/28/2018 showed a right pleural effusion versus mild pleural thickening. We put him on supplementary O2, which he had already started a couple of weeks before as an outpatient, but tried cyclic BiPAP and Cardiology was consulted. It was felt his problem was multifactorial, but underlying problem was COPD with systolic and diastolic dysfunction, and elevated pulmonary pressure. His symptoms were predominantly right-sided symptoms. He had no chest pain. There was no sign of cardiac ischemia. Atrial fibrillation; he had predominantly paced rhythm. Consulted Pulmonary, Dr. De. We did a pulmonary arteriogram and that was done on 08/29/2018. Impression: No evidence of pulmonary emboli. Right pleural effusion. New pulmonary nodules bilaterally, possibly metastatic disease. So, the right pleural effusion was tapped. We had stopped his Eliquis. He had thoracentesis on 09/01/2018 and michael off about 800 mL of straw-colored serous fluid. It was sent for studies and pleural fluid had no bacterial growth. It appeared to be consistent, I believe, with transudate. White blood cells 305, polymorphonuclear was 2, mononuclear was 98, glucose 191, LDH 59, pH was 8.0, and amylase 29. He improved clinically. He was not able to tolerate the BiPAP. He was wearing a nasal cannula and seemed to get a little stronger, was eating, and felt like he was ready go home on 09/03/2018. DISCHARGE MEDICATIONS: His discharge medications will be as follows: Eliquis 5 mg b.i.d. He can take the Dulcolax suppository daily as needed. Colace 100 mg b.i.d., Pepcid 20 mg p.o. daily, Lasix 40 mg a day, lisinopril 5 mg b.i.d., milk of magnesia as needed, Glucophage 500 mg b.i.d., Prilosec 40 mg b.i.d., Zoloft 25 mg a day, sotalol 80 mg b.i.d., Aldactone 25 mg every other day, and Flomax 0.4 mg b.i.d. FOLLOWUP: I will follow him up in my office in a couple weeks. He will continue his O2 at 2 L per nasal cannula and we will see if we can get home health arranged to help with physical therapy. cc: Miguel Angel Mcintosh MD
== END 2018-09-03 11:35 | disposition home health service (06) | DRG 291 ==
LOC: DIRADM 11:27 → EDIPHOLD 12:25 → DIRADM 12:39 → 3S 15:31
PROVIDERS: ADMIT Emergency Medicine; ATTEND Emergency Medicine
CPT/HCPCS: 32421; 32555; 71010; 71020; 71045; 71046; 71275; 78472; 80048; 80053; 82140; 82150; 82550; 82607; 82746; 82805; 82945; 82948; 83519; 83615; 83735; 83880; 83986; 84157; 84436; 84443; 84484; 85025; 85379; 85610; 85730; 87070; 89051; 93005; 93010; 93306; 93308; 94660; 94761; 94799; A9270; A9512; J1940; J7030; Q9967; XXXXX

== ENCOUNTER 2018-10-05 20:11 | Inpatient (IN) ==
[2018-10-05 21:10] LABS: ALLEN TEST YES; BLOOD TYPE ARTERIAL; HCO3-(ACT) 33.5 mmoll (20.0-26.0); METHB 1.6 % (0.0-1.5); O2(CT) 16.9 mL/dL (15.0-23.0); O2HB 95.8 % (95.0-99.0); PO2(98.6) 207 mmHg (60-100); SAMPLE BLOOD; SAO2 99.6 % (95.0-100.0); THB 12.2 g/dL (11.5-17.4); pH(98.6) 7.31 (7.35-7.45)
[2018-10-05 21:11] LABS: MODALITY CANNULA
[2018-10-05 21:13] LABS: PCO2(98.6) 80 mmHg (35-45)
--- NOTE | 2018-10-05 21:28 | Diag Imaging Result Doc PS360 ---
EXAM: CHEST-PORTABLE 10/05/2018 HISTORY: shortness of breath TECHNIQUE: AP portable upright at 2119 COMMENT: The inspiration is slightly less optimal than on 09/03/2018. There is some platelike atelectasis in the right lower lobe. There is cardiomegaly. IMPRESSION: Cardiomegaly and right lower lobe atelectasis. Electronically signed by Tk Casey 10/05/2018 9:26 PM
[2018-10-05 22:09] LABS: BASO# 0.02 X1000 (0.0-0.2); BASO% 0.3 % (0.0-0.8); EOS# 0.07 X1000 (0.0-0.7); EOS% 1.2 % (0.0-10.0); HEMATOCRIT 39.1 % (42.0-52.0); LYMPH% 19.8 % (20.5-51.1); MCH 31.8 PG (27-31); MCHC 30.7 g/dL (33-37); MCV 103.7 FL (81-99); MONO# 0.72 X1000 (0.11-0.59); MONO% 11.9 % (1.7-9.3); MPV 10.4 FL (7.4-10.4); NEUT# 4.06 X1000 (1.4-6.5); NEUT% 66.8 % (42.2-75.2); PLT 135 X1000 (130-400); RBC 3.77 XMIL (4.7-6.1); RDW 13.9 % (11.5-14.5); WBC 6.07 X1000 (4.8-10.8)
[2018-10-05 22:12] LABS: URINE SOURCE CLEAN CATCH
[2018-10-05 22:15] LABS: BILIRUBIN URINE NEGATIVE (NEGATIVE); BLOOD URINE SMALL (NEGATIVE); COLOR YELLOW; GLUCOSE URINE 500 mg/dL (NEGATIVE); KETONE URINE NEGATIVE (NEGATIVE); LEUKOCYTES URINE NEGATIVE (NEGATIVE); NITRITE URINE NEGATIVE (NEGATIVE); PH URINE 5.5; PROTEIN URINE TRACE mg/dL (NEGATIVE); SP GRAVITY URINE 1.017; TURBIDITY URINE CLEAR (CLEAR); UR EPITHELIAL CELLS <10 /HPF (<10); URINE BACTERIA NEGATIVE /HPF; URINE RBC <10 /HPF (<10); URINE WBC <10 /HPF (<10); UROBILINOGEN URINE NORMAL (NORMAL)
[2018-10-05 22:23] LABS: INR 1.29; PROTIME 17.1 Seconds (11.0-16.0)
[2018-10-05 22:28] LABS: AGAP 10; ALB/GLOB RATIO 1.3; ALBUMIN 3.8 g/dL (3.5-5.0); ALKALINE PHOSPHATASE 82 U/L (32-122); BUN 39 mg/dL (8-22); CALCIUM 9.3 mg/dL (8.8-10.2); CHLORIDE 96 mmol/L (98-107); CK PROFILE 38 U/L (24-204); COSMO 299; CREATININE 1.1 mg/dL (0.7-1.2); ESTIMATED GFR > 60; GLUCOSE 255 mg/dL (70-104); GOT 26 U/L (10-34); GPT 13 U/L (10-44); POTASSIUM 5.4 mmol/L (3.5-5.1); SODIUM 141 mmol/L (136-145); TCO2 35 mmol/L (25-35); TOTAL PROTEIN 6.8 g/dL (6.3-8.3)
[2018-10-06] MEDS ORDERED: VANCOMYCIN 1 GM/NS 1 GM/250 ML IVPB IV ONE (00:47)
[2018-10-06] MEDS ORDERED: LEVAQUIN 750 MG/D5W 750 MG/150 ML IVPB IV ONE (00:47)
[2018-10-06] MEDS ORDERED: KAYEXALATE PR ONE (01:07)
[2018-10-06] MEDS ORDERED: VANCOMYCIN IV PER PHARMACY MISC SCH (01:18)
[2018-10-06] MEDS: AZACTAM 1 GM in NS 50 ML IV SCH ×3 (01:18→17:25)
[2018-10-06] MEDS ORDERED: ZOFRAN IV PRN (01:18)
--- NOTE | 2018-10-06 01:58 | PROVIDER DOCUMENTATION ---
This chart was entered by Rebekah Tabares Scribe, acting as scribe for Ashkan Patel MD. HPI-Respiratory General - General Chief Complaint: Shortness of Breath Stated Complaint: ams Time Seen by Provider: 10/05/18 20:42 Source: family Allergies/Adverse Reactions: Patient Allergies Allergy/AdvReac Type Severity Reaction Status Date / Time Penicillins Allergy Unknown Verified 05/24/17 15:03 Home Medications: Home Medication List Medication Instructions Recorded Confirmed Last Taken Type Apixaban [Eliquis] 5 mg PO BID 06/19/15 10/05/18 05/24/17 08:00 History Lisinopril 5 mg PO BID 06/19/15 10/05/18 08/27/18 07:00 History Spironolactone [Aldactone] 25 mg PO EVERY OTHER DAY 06/19/15 10/05/18 08/26/18 07:00 History Sotalol [Betapace] 80 mg PO BID tablet 05/30/17 10/05/18 08/27/18 07:00 Rx Amitriptyline [Elavil] 10 mg PO HS 08/27/18 10/05/18 08/26/18 21:00 History Metformin [Glucophage] 500 mg PO BID CC 08/27/18 10/05/18 08/27/18 07:00 History Furosemide [Lasix] 40 mg PO DAILY 30 Days #30 tab 09/03/18 10/05/18 Unknown Rx Potassium Chloride 20 meq PO DAILY 10/05/18 10/05/18 Unknown History Ropinirole [Requip] 0.25 mg PO DAILY 10/05/18 10/05/18 Unknown History Sertraline [Zoloft] 25 mg PO DAILY 10/05/18 10/05/18 Unknown History Tamsulosin [Flomax] 0.4 mg PO DAILY 10/05/18 10/05/18 Unknown History - History of Present Illness-Resp Nature of Presenting Problem: 83 yom presents w/ as historian w/co pt is disoriented, no appetite and sob. pt was in hospital from aug 27 to sep 03 for high co2 and had 800 cc of fluid taken off lungs. pt is responsive to verbal stimuli but non verbal otherwise. pt states they have o2 at home but rarely uses it. Severity in ED: reports: severe Timing: reports: getting worse Review of Systems - Adult - REVIEW OF SYSTEMS - ADULT ROS:: ROS per family Constitutional: denies: fever, fatique, night sweats Eyes: reports: no symptoms reported Ears, Nose, Mouth & Throat: reports: no symptoms reported Cardiovascular: reports: no symptoms reported Respiratory: reports: see HPI, shortness of breath. denies: cough, pleurisy, wheezing Gastrointestinal: reports: see HPI, poor appetite Genitourinary: reports: no symptoms reported Musculoskeletal: reports: no symptoms reported Integumentary: reports: no symptoms reported Neurological: reports: other (chronic debility) Psychiatric: reports: no symptoms reported Endocrine: reports: no symptoms reported Hematologic/Lymphatic: reports: no symptoms reported Allergic/Immunologic: reports: no symptoms reported All Other Systems: Reviewed and Negative Past History - Adult - PAST MEDICAL HISTORY-ADULT Review of Records: reports: Old Records Reviewed, Nursing Assessment Review, Medications Reviewed, Social history reviewed & non-contributory. Major Childhood Illnesses: reports: denies history Cardiovascular: reports: A-Fib, CAD, CHF, HTN, pacemaker (defib) Respiratory: reports: COPD Gastrointestinal: reports: denies history Obstetrical/Gynecological: reports: denies history Genitourinary: reports: stenosis/obstruction Musculoskeletal: reports: other (RESTLESS LEGS) Neurological: reports: denies history Endocrine/Immune: reports: Diabetes Other Conditions: reports: denies history - PRIOR SURGERIES/PROCEDURES Surgical/Procedure History: reports: CABG (2007), pacemaker - IMMUNIZATION STATUS Childhood Immunizations: See Nurse Assessment Flu Vaccine: See Nurse Assessment - FAMILY HISTORY Family History: reviewed, not pertinent - SOCIAL HISTORY Smoking: other (former) Substance Use: alcohol Alcohol Use Frequency: occasionally Physical Exam-General - PHYSICAL EXAM-ADULT Initial Vital Signs Reviewed: Yes - CONSTITUTIONAL General Appearance: alert, severe distress, other (bedridden, frail, ill looking, non verbal) - EYES Eyes: PERRL/EOMI, pink conjunctivae - HEAD, EARS, NOSE, MOUTH & THROAT HENMT: normocephalic/atraumatic, moist mucous membranes - RESPIRATORY Respiratory: decreased breath sounds, other (on oxygen via nasal canulla). negative: normal breath sounds, pain on inspiration, pleural rub, retractions - CARDIOVASCULAR Cardiovascular: normal peripheral pulses, regular rate, rhythm. negative: extra beats, friction rub, irregularly irregular - GASTROINTESTINAL (ABDOMEN) Abdominal Exam: normal bowel sounds, non tender, soft. negative: guarding, rigid, rebound - MUSCULOSKELETAL Extremity: normal range of motion, non-tender, normal inspection - SKIN Integumentary: normal color, normal turgor, warm/dry - NEUROLOGIC Neurologic: other (frail ,) - PSYCHIATRIC Psych/Mental Status: disoriented x 3 Progress - PLAN OF CARE/RESULTS Progress/Plan/Lab Results: Vital Signs - 8 hr 10/05/18 20:54 Temperature 97.9 F Pulse Rate 75 Respiratory Rate 35 H Blood Pressure 108/79 Laboratory Results - last 24 hr 10/05/18 10/05/18 10/05/18 20:53 21:20 21:20 WBC 6.07 RBC 3.77 L Hgb 12.0 L Hct 39.1 L MCV 103.7 H MCH 31.8 H MCHC 30.7 L RDW Std Deviation 13.9 Plt Count 135 MPV 10.4 Immature Gran % (Auto) 0.0 Neut % (Auto) 66.8 Lymph % (Auto) 19.8 L Harmon % (Auto) 11.9 H Eos % (Auto) 1.2 Baso % (Auto) 0.3 Immature Gran # (Auto) 0.00 Neut # (Auto) 4.06 Lymph # (Auto) 1.20 Harmon # (Auto) 0.72 H Eos # (Auto) 0.07 Baso # (Auto) 0.02 PT INR PTT (Actin FS) Specimen Type ARTERIAL Sample Site L BRACHIAL pH 7.31 L pCO2 80 H* pO2 207 H HCO3 33.5 H Base Excess 11.0 H Oxyhemoglobin 95.8 ABG O2 Sat (Calculated) 16.9 ABG O2 Saturation 99.6 ABG Carboxyhemoglobin 2.20 ABG Methemoglobin 1.6 H Miguel Angel Test YES A-a O2 Difference -50.0 Total Hemoglobin 12.2 Lactate 1.10 Liter Flow 4.0 Blood Gas Modality CANNULA FiO2 % 36.0 Sodium 141 Potassium 5.4 H Chloride 96 L Carbon Dioxide 35 Anion Gap 10 BUN 39 H Creatinine 1.1 Estimated GFR/1.73 m2 > 60 BUN/Creatinine Ratio 35 Glucose 255 H Calculated Osmolality 299 Calcium 9.3 Total Bilirubin 0.70 AST 26 ALT 13 Alkaline Phosphatase 82 Creatine Kinase 38 Troponin T Ztj-C-Bgmyqmcplxi Pept Total Protein 6.8 Albumin 3.8 Globulin 3.0 Albumin/Globulin Ratio 1.3 Plasma Lactate Urine Source Urine Color Urine Turbidity Urine pH Ur Specific [place] Urine Protein Ur Glucose (Stick) Ur Ketones (Stick) Urine Blood Urine Nitrite Urine Bilirubin Urobilinogen Dipstick Urine Leukocytes Urine WBC (Auto) Urine RBC (Auto) U Epithel Cells (Auto) Urine Bacteria (Auto) 10/05/18 10/05/18 10/05/18 21:20 21:20 21:20 WBC RBC Hgb Hct MCV MCH MCHC RDW Std Deviation Plt Count MPV Immature Gran % (Auto) Neut % (Auto) Lymph % (Auto) Harmon % (Auto) Eos % (Auto) Baso % (Auto) Immature Gran # (Auto) Neut # (Auto) Lymph # (Auto) Harmon # (Auto) Eos # (Auto) Baso # (Auto) PT 17.1 H INR 1.29 PTT (Actin FS) 37.0 Specimen Type Sample Site pH pCO2 pO2 HCO3 Base Excess Oxyhemoglobin ABG O2 Sat (Calculated) ABG O2 Saturation ABG Carboxyhemoglobin ABG Methemoglobin Miguel Angel Test A-a O2 Difference Total Hemoglobin Lactate Liter Flow Blood Gas Modality FiO2 % Sodium Potassium Chloride Carbon Dioxide Anion Gap BUN Creatinine Estimated GFR/1.73 m2 BUN/Creatinine Ratio Glucose Calculated Osmolality Calcium Total Bilirubin AST ALT Alkaline Phosphatase Creatine Kinase Troponin T 0.010 Esi-S-Dyszgjfjxoc Pept 3196 H Total Protein Albumin Globulin Albumin/Globulin Ratio Plasma Lactate Urine Source Urine Color Urine Turbidity Urine pH Ur Specific [place] Urine Protein Ur Glucose (Stick) Ur Ketones (Stick) Urine Blood Urine Nitrite Urine Bilirubin Urobilinogen Dipstick Urine Leukocytes Urine WBC (Auto) Urine RBC (Auto) U Epithel Cells (Auto) Urine Bacteria (Auto) 10/05/18 10/05/18 21:20 21:40 WBC RBC Hgb Hct MCV MCH MCHC RDW Std Deviation Plt Count MPV Immature Gran % (Auto) Neut % (Auto) Lymph % (Auto) Harmon % (Auto) Eos % (Auto) Baso % (Auto) Immature Gran # (Auto) Neut # (Auto) Lymph # (Auto) Harmon # (Auto) Eos # (Auto) Baso # (Auto) PT INR PTT (Actin FS) Specimen Type Sample Site pH pCO2 pO2 HCO3 Base Excess Oxyhemoglobin ABG O2 Sat (Calculated) ABG O2 Saturation ABG Carboxyhemoglobin ABG Methemoglobin Miguel Angel Test A-a O2 Difference Total Hemoglobin Lactate Liter Flow Blood Gas Modality FiO2 % Sodium Potassium Chloride Carbon Dioxide Anion Gap BUN Creatinine Estimated GFR/1.73 m2 BUN/Creatinine Ratio Glucose Calculated Osmolality Calcium Total Bilirubin AST ALT Alkaline Phosphatase Creatine Kinase Troponin T Czg-C-Jcujxpiuezz Pept Total Protein Albumin Globulin Albumin/Globulin Ratio Plasma Lactate 1.6 Urine Source CLEAN CATCH Urine Color YELLOW Urine Turbidity CLEAR Urine pH 5.5 Ur Specific [place] 1.017 Urine Protein TRACE A Ur Glucose (Stick) 500 A Ur Ketones (Stick) NEGATIVE Urine Blood SMALL A Urine Nitrite NEGATIVE Urine Bilirubin NEGATIVE Urobilinogen Dipstick NORMAL Urine Leukocytes NEGATIVE Urine WBC (Auto) <10 Urine RBC (Auto) <10 U Epithel Cells (Auto) <10 Urine Bacteria (Auto) NEGATIVE Orders Category Date Time Status Resuscitation Status Routine Care 10/06/18 01:37 Ordered Physician/Provider Consults Routine Cons 10/06/18 01:18 Ordered CHEST-PORTABLE [RAD] Stat Exams 10/05/18 21:[address] HEAD W/O CONTRAST [CT] Stat Exams 10/06/18 01:[address] THORAX W/O CONTRAST [CT] Stat Exams 10/06/18 01:18 Ordered ABG [RESP] Routine Lab 10/05/18 20:53 Completed BLOOD CULTURE [BLDCUL] Stat Lab 10/06/18 01:36 Ordered CBC WITH ELECTRONIC DIFF [HEME] Stat Lab 10/05/18 21:20 Completed CK PROFILE [SP CHEM] Stat Lab 10/05/18 21:20 Completed COMPREHENSIVE METABOLIC PANEL [CHEM] Stat Lab 10/05/18 21:20 Completed LACTATE, PLASMA [CHEM] Stat Lab 10/05/18 21:20 Completed PRO B-NATRIURETIC PEPTIDE Stat Lab 10/05/18 21:20 Completed PT [PROTIME WITH INR] [COAG] Stat Lab 10/05/18 21:20 Completed PTT [COAG] Stat Lab 10/05/18 21:20 Completed TROPONIN T Stat Lab 10/05/18 21:20 Completed URINALYSIS W/POSS RFLX CULT [URINALYSIS] Stat Lab 10/05/18 21:40 Completed URINE CULTURE [RM] Stat Lab 10/06/18 01:18 Uncollected 0.9% Sodium Chloride Inj [Ns] 1,000 ml Med 10/06/18 01:18 Active IV 75 mls/hr Albuterol 2.5MG/Ipratrop 0.5MG [Duoneb (A & A)] Med 10/06/18 03:30 Active 3 ml INH RTQ4H Aztreonam [Azactam] 1 gm Med 10/06/18 01:18 Active 0.9% Sodium Chloride Inj [Ns] 50 ml IV Q8H Enoxaparin [Lovenox] Med 10/06/18 01:18 Active 40 mg SUBQ Q24H Levofloxacin 750 mg/D5w [Levaquin 750 mg/D5w] Med 10/06/18 00:47 Active 750 mg in 150 ml IV NOW Ondansetron [Zofran] Med 10/06/18 01:18 Active 4 mg IV Q4H PRN PRN Pantoprazole [Protonix] Med 10/06/18 01:18 Active 40 mg IV Q24H Pharmacy Order [Vancomycin IV Per Pharmacy] Med 10/06/18 01:18 Ordered 1 each MISC DIRECTED Sodium Polystyrene [Kayexalate] Med 10/06/18 01:07 Discontinued 30 gm TX NOW ONE Vancomycin 1 gm/Ns Med 10/06/18 00:47 Discontinued 1 gm in 250 ml IV NOW BIPAP Stat Oth 10/06/18 00:48 Active EKG [EKG] Stat Ther 10/05/18 21:05 Ordered Transfer/Admit Order [TRANSFER] Routine Transfer 10/06/18 01:09 Ordered Result Diagrams: 10/05/18 21:20 10/05/18 21:20 - XRAY 1 XRAY: Bilateral XRAY Study: Chest ( EXAM: CHEST-PORTABLE 10/05/2018 HISTORY: shortness of amaris th TECHNIQUE: AP portable upright at 2119 COMMENT: The inspiration is slightly less optimal than on 09/03/2018. There is some platelike atelectasis in the right lower lobe. There is cardiomegaly. IMPRESSION: Cardiomegaly and right lower lobe atelectasis. Electronically signed by Tk Casey 10/05/2018 9:26 PM) Impression: Abnormal - CONSULTS/PCP/HOSPITALIST Notification #1 *Consult/PCP/Hospitalist*: Dr. Masterson Time Discussed: 00:59 Consult Disposition: Admit Departure - Departure Date of Disposition Decision: 10/06/18 Time of Disposition Decision: 00:49 DIAGNOSIS: Hyperkalemia Acute and chronic respiratory failure Qualifiers: Respiratory failure complication: hypercapnia Qualified Code(s): J96.22 - Acute and chronic respiratory failure with hypercapnia Pneumonia Qualifiers: Pneumonia type: due to unspecified organism Laterality: unspecified laterality Lung location: unspecified part of lung Qualified Code(s): J18.9 - Pneumonia, unspecified organism Altered mental status Qualifiers: Altered mental status type: unspecified Qualified Code(s): R41.82 - Altered mental status, unspecified Fluid overload Qualifiers: Hypervolemia type: unspecified Qualified Code(s): E87.70 - Fluid overload, unspecified Disposition: ADMITTED INPATIENT 09 Certified Medical Emergency: Emergent Condition: Critical Referrals and Follow-Ups: Miguel Angel Mcintosh MD [Primary Care Provider] - - Critical Care Note This patient required my direct & personal management of CC.: Yes Total Time (mins): 65 Critical Care Statement: This patient required my direct personal management to treat or rule out processes, the absence of which, could potentiallly result in sudden, clinically significant life or limb threatening deterioration. Attestation - Physician/ LAN Attestation Patient care was provided by Advanced Practice Provider:: No The physician spent face to face time with patient:: Yes Advanced Practice Provider documentation review:: Supervising physician onsite and consulted in the evaluation and care of this patient. The physician did have a face to face encounter with the patient. This chart was documented by the indicated scribe, (Rebekah Tabares Scribe) and accurately reflects the services I performed and decisions made by , Ashkan Patel MD, as attested by the provider's signature.
[2018-10-06] MEDS: LOVENOX SUBQ SCH (02:30)
[2018-10-06] MEDS: NS 1,000 ML IV SCH ×3 (02:45→17:25)
[2018-10-06] MEDS ORDERED: VANCOMYCIN 2,350 MG in NS 500 ML IV ONE (03:00)
[2018-10-06] MEDS: PROTONIX IV SCH (03:00)
[2018-10-06] MEDS ORDERED: VANCOMYCIN 1,350 MG in NS 250 ML IV ONE (03:07)
[2018-10-06] MEDS: LASIX IV SCH ×2 (03:20→09:27)
[2018-10-06] MEDS: DUONEB (A & A) INH SCH ×6 (03:30→23:03)
[2018-10-06] MEDS ORDERED: KAYEXALATE PO ONE (03:43)
[2018-10-06 04:38] LABS: HEMOGLOBIN A1C 8.3 % (4.8-6.0)
--- NOTE | 2018-10-06 04:55 | ED EKG INTERP ---
This chart was entered by Rebekah Tabares Scribe, acting as scribe for Erick Calixto MD. EKG Interpretation - EKG Time of EKG reading by physician:: 04:00 EKG Read and Signed by:: Erick Calixto EKG Interpretation (*Must complete 3 of following elements*): Abnormal Rate: 76 Rhythm: AV dual paced rhythm [place]: normal ND Interval: normal Attestation - Physician/ LAN Attestation The physician spent face to face time with patient:: Yes Advanced Practice Provider documentation review:: Supervising physician onsite and consulted in the evaluation and care of this patient. The physician did have a face to face encounter with the patient. This chart was documented by the indicated scribe, (Rebekah Tabares Scribe) and accurately reflects the services I performed and decisions made by me, Erick Calixto MD, as attested by the provider's signature.
--- NOTE | 2018-10-06 06:33 | HISTORY AND PHYSICAL ---
PRIMARY CARE PHYSICIAN: Dr. Miguel Angel Mcintosh. CHIEF COMPLAINT: Shortness of breath. HISTORY OF PRESENT ILLNESS: This is an 83-year-old male with past medical history of coronary artery disease, diabetes mellitus, peripheral vascular disease, and also history of diastolic heart failure who presented to the emergency department complaining of shortness of breath. According to who is at bedside, the patient has been complaining of shortness of breath and also reports some foamy sputum as well. The patient's did not notice any change in his weight or any leg swelling. The patient is obtunded and not able to provide any pertinent information. The patient also has history of nodule in his lung. He is supposed to see Dr. Abdiel Lopez pulmonary with a PET scan but he was unable to go. Patient's denies any fever, chills, any sick contacts. He was recently admitted to the hospital from August 27 to September 03. He had a thoracentesis and so far they have removed 800 mL of pleural fluid. Now at this time reason for admission is acute hypercarbic respiratory failure. The CO2 is 80 with pH 7.31, indicating respiratory acidosis, but good oxygenation with PO2 207 on nasal cannula at 2 L/minute. Unfortunately as per , the patient to not tolerate the BiPAP very well. I have talked to the on she agreed to at least try. The patient also was found to have hyperkalemia with normal renal function. ProBNP was elevated so patient is going to be admitted to [facility]. PAST MEDICAL HISTORY: 1. Coronary artery disease. 2. Diabetes mellitus type 2. 3. Peripheral vascular disease. 4. Chronic diastolic heart failure. 5. Chronic atrial fibrillation. 6. Hypercholesteremia. 7. Osteoarthritis. PAST SURGICAL HISTORY: 1. Double vessel CABG in January,. 2. ICD placement in Nov, 2008 with replacement of defibrillator in 2012. 3. Cataract surgery. 4. Right hip surgery in 2017. SOCIAL HISTORY: The patient lives with . As per the patient quit smoking in 2019. He used to smoke 2 packs per day for over 40 years. No alcohol consumption, not using drugs. ALLERGIES: The patient is allergic to penicillin. FAMILY HISTORY: Father at age 73 from a CVA. Mother at age 92 from stroke but the mother has history of hypertension and coronary artery disease. REVIEW OF SYSTEMS: The patient is not able to provide any pertinent information. PHYSICAL EXAMINATION: VITALS: Temperature 97.9 degrees, heart rate 75, respiratory rate 35, blood pressure 108/79. O2 saturation 94% on 4 L nasal cannula. GENERAL: This is a chronically ill-appearing, 83-year-old male, lying in bed, in no acute distress. Obtunded. HEENT: Head is normocephalic, atraumatic. NECK: No JVD noted. No carotid bruits. No lymphadenopathy. No thyromegaly. Cardiovascular exam S1-S2 heard. No murmurs, gallops, or rubs. Regular rate and rhythm. RESPIRATORY: Exam clear bilaterally to auscultation. Respiratory exam coarse breath sounds in both pulmonary bases with minimal crackles as well. Patient is not using any accessory muscles or work of breathing. ABDOMEN: Soft. Nontender to palpation. Bowel sounds present. No organomegaly. EXTREMITIES: No clubbing, cyanosis, or edema. Peripheral pulses present in both legs. NEUROLOGICAL: The patient is obtunded, does not follow commands. Does respond to painful stimuli only. LABORATORY DATA: White cell count 6.07, hemoglobin 12.0, hematocrit 39.1, platelets. 135,000 with ABG that shows pH 7.31, with pCO2 80, PO2 107. A BMP shows potassium 5.4, creatinine 1.1, glucose 255. ASSESSMENT: 1. Acute hypercarbic respiratory failure. 2. Acute systolic congestive heart failure. 3. Coronary artery disease. 4. Diabetes mellitus type 2. 5. Peripheral vascular disease. PLAN: 1. At this point, we are going to start BiPAP on this patient. It is important to remark the patient did not tolerate BiPAP in the past. I explained to the the importance of using BiPAP here in the hospital. We are going to send this patient to [facility]. We are going to start breathing treatment with DuoNeb every 6 hours as scheduled. We are going to do a CT of the chest without contrast to see there is any pneumonia that has been seen in the x-ray. In any case, we will start vancomycin and aztreonam; patient is allergic to penicillin. We will provide gentle fluid hydration with normal saline at 75 mL per hour. 2. Regarding coronary artery disease the patient is stable not complaining of any chest pain. 3. Regarding acute CHF exacerbation I think this patient will require Lasix 40 mg IV q.12 hours. I may need to check an x-ray in a couple days to see how this patient does. 4. Diabetes mellitus, type 2. We will start Humalog, sliding scale insulin moderate does. We will check hemoglobin A1c as well. 5. For chronic atrial fibrillation, considering that this patient is unable to take anything by mouth, we will hold home Eliquis and will star Lovenox for this patient. 6. We are going to consult pulmonary. We will continue to monitor this patient closely. 7. Further recommendations to follow according to the clinical situation of the patient. cc: MD Miguel Angel De Los Santos MD MTDD
[2018-10-06 07:18] LABS: URINE SOURCE CLEAN CATCH
--- NOTE | 2018-10-06 07:34 | Diag Imaging Result Doc PS360 ---
EXAM: CT HEAD W/O CONTRAST 10/06/2018 HISTORY: ams TECHNIQUE: This exam was performed using automated exposure control, adjustment of mA or kV according to patient size, and/or use of iterative reconstruction technique. COMMENT: There is no evidence of mass effect, bleed, or abnormal extra-axial fluid collection. There are number of lacunar lucencies present in the basal ganglia particularly on the right. The visualized paranasal sinuses are clear with the exception of the left maxillary sinus where there is a mucous retention cyst. The calvarium is intact. IMPRESSION: No evidence of acute intracranial disease. Electronically signed by Tk Casey 10/06/2018 7:31 AM
--- NOTE | 2018-10-06 07:46 | Diag Imaging Result Doc PS360 ---
EXAM: CT THORAX W/O CONTRAST 10/06/2018 HISTORY: pna, chf? TECHNIQUE: This exam was performed using automated exposure control, adjustment of mA or kV according to patient size, and/or use of iterative reconstruction technique. COMMENT: The current examination is compared with the previous study of 03/11/[address] pulmonary angiogram of 08/29/2018. There is some motion artifact. There is minimal atelectasis in the posterior left upper lobe. There is a calcified granuloma in the superior segment of the left lower lobe. There is a nodule in the lingula on image 65 which was not previously present and is not clearly calcified measuring over 12 mm in diameter. In comparison with the previous study of 08/29/2018, this appears slightly larger but given the motion artifact the current measurement is somewhat unreliable. There is some emphysematous change. There is a fairly large pleural effusion on the right with compressive atelectasis of the right lower lobe and to some extent in the middle lobe. There is no evidence of pulmonary edema. There is a tiny nodule adjacent to the pleura on the left lower lobe on image 83 which was not clearly present time the previous study. There is a prevascular node which has not changed significantly in size since the previous study. There has been previous sternotomy and there are pacemaker leads in the right ventricle and atrium. There is generalized cardiomegaly. There may be some small stones or sludge in the gallbladder. There is a cystic lesion in the body of the pancreas measuring 2.5 cm in diameter. This has not changed since the previous study. There are spondylotic changes throughout the thoracic spine. IMPRESSION: Right pleural effusion and basilar atelectasis. The possibility of underlying pneumonia cannot be excluded. Lingular nodule not present in 2013. The possibility of neoplastic disease cannot be excluded and further evaluation is recommended. Cardiomegaly. Other nonacute findings as described. Electronically signed by Tk Casey 10/06/2018 7:44 AM
[2018-10-06 08:36] LABS: BILIRUBIN URINE NEGATIVE (NEGATIVE); BLOOD URINE NEGATIVE (NEGATIVE); COLOR STRAW; GLUCOSE URINE NEGATIVE (NEGATIVE); KETONE URINE NEGATIVE (NEGATIVE); LEUKOCYTES URINE NEGATIVE (NEGATIVE); NITRITE URINE NEGATIVE (NEGATIVE); PROTEIN URINE NEGATIVE (NEGATIVE); TURBIDITY URINE CLEAR (CLEAR); UROBILINOGEN URINE NORMAL (NORMAL)
[2018-10-06 08:38] LABS: UR EPITHELIAL CELLS <10 /HPF (<10); URINE BACTERIA NEGATIVE /HPF; URINE RBC <10 /HPF (<10); URINE WBC <10 /HPF (<10)
--- NOTE | 2018-10-06 09:03 | EKG Report ---
Test Performed on : 10/06/2018 03:32:54 AM Test Reason : shortness of breath Blood Pressure : / mmHG Vent. Rate : 076 BPM Atrial Rate : 076 BPM P-R Int : 152 ms QRS Dur : 178 ms QT Int : 500 ms P-R-T Axes : 106 267 073 degrees QTc Int : 562 ms AV dual-paced rhythm Abnormal ECG When compared with ECG of 27-AUG-2018 12:42, Vent. rate has decreased BY 5 BPM Unconfirmed Result
[2018-10-06] MEDS: HUMALOG SUBQ SCH ×4 (09:27→23:54)
--- NOTE | 2018-10-06 09:51 | PROGRESS NOTE ---
DATE: 10/06/2018 SUBJECTIVE: Mr. Christy wore the BiPAP through the night. His states he has been having trouble breathing, that started about 4 days ago on Saturday; today is Saturday. This is an 83- year-old with a Past Medical History of coronary artery disease, diabetes mellitus, peripheral vascular disease, history of diastolic dysfunction, and diastolic heart failure. He has left lingular nodule that we have been following, and he has had more shortness of breath. He has chronic atrial fibrillation, history of osteoarthritis, hypercholesterolemia, status post CABG bypass in 2007, and had an ICD placement in 2008. Replacement of defibrillator in 2012. He has had cataract surgery. Right hip surgery in 2017. PHYSICAL EXAMINATION: Vital Signs: Exam today reveals temperature 97.9 degrees, pulse 78, respirations 28, and blood pressures have been running low at 85/67. HEENT: Pupils are equal. Neck: No distended neck veins. Lungs: Decreased breath sounds bibasilar. He has BiPAP on, and moving air comfortably with the BiPAP. Cardiovascular: Irregular rhythm and irregular rate. Remains in atrial fibrillation, actually predominantly paced rhythm. Abdomen: Soft. No pedal edema. His did not give any report of increased orthopnea, paroxysmal nocturnal dyspnea, or increased swelling in his lower extremities. LABORATORY: White count 6070, hematocrit 39, and platelet count 135,000. Sodium 141, potassium 5.4, chloride 96, BUN 39, creatinine 1.1. Blood sugar 255. Hemoglobin A1c was 8.3, calcium 9.3, transaminase is 26. AST and ALT are 26 and 13 so it looked good. ProTime 17.1. Urinalysis unremarkable. Blood gases when he arrived pH was 7.31, pCO2 80, and PO2 was 207. Chest CT revealed right pleural effusion and bibasilar atelectasis, the possibility of underlying pneumonia could be excluded. The lingular nodule present in 2012 again appreciated. Chest x-ray cardiomegaly and right lower lobe atelectasis. Head CT without contrast. No evidence of acute cranial or intracranial process. ASSESSMENT AND PLAN: 1. COPD. CO2 retention. He does have underlying diastolic dysfunction, but continue the BiPAP and bronchodilators. We will have Pulmonary Dr. De follow as well. CT showed atelectasis, could not rule out pneumonia. He is allergic to penicillin. He will be on vancomycin and aztreonam. 2. History of coronary artery disease. I do not see any active ischemia. 3. In regard to congestive heart failure, he has had recent echo in July. He did show that there was global hypokinesis with ejection fraction of 35 to 40% so he has systolic and diastolic congestive heart failure. His volume status seems to be pretty good at this point. He has a pacemaker defibrillator which appears to be functioning well. 4. Diabetes mellitus type 2. Follow sugars. It appears his sugars have been under good control. 5. History of chronic atrial fibrillation. We are going to hold his Eliquis. He is on Lovenox at this point because he was not able to take anything by mouth because of his breathing. Note on previous CT, there were some nodules and there was concern about possibility of malignancy so we have been following that clinically. He had a pulmonary arteriogram on 08/29/2018. There is no evidence of pulmonary emboli at that time still right pleural effusion, and possibility of metastatic disease. He has multiple pulmonary nodules. cc: Miguel Angel Mcintosh MD
[2018-10-06 14:10] LABS: BASO# 0.01 X1000 (0.0-0.2); BASO% 0.2 % (0.0-0.8); EOS# 0.08 X1000 (0.0-0.7); EOS% 1.3 % (0.0-10.0); HEMATOCRIT 38.5 % (42.0-52.0); HEMOGLOBIN 12.6 g/dL (14.0-18.0); LYMPH# 0.84 X1000 (1.2-3.4); LYMPH% 13.4 % (20.5-51.1); MCH 33.2 PG (27-31); MCHC 32.7 g/dL (33-37); MCV 101.3 FL (81-99); MONO# 0.61 X1000 (0.11-0.59); MONO% 9.7 % (1.7-9.3); MPV 10.1 FL (7.4-10.4); NEUT# 4.72 X1000 (1.4-6.5); NEUT% 75.4 % (42.2-75.2); PLT 135 X1000 (130-400); WBC 6.26 X1000 (4.8-10.8)
[2018-10-06 14:38] LABS: AGAP 8; BUN 31 mg/dL (8-22); CALCIUM 8.9 mg/dL (8.8-10.2); CHLORIDE 93 mmol/L (98-107); COSMO 290; CREATININE 0.9 mg/dL (0.7-1.2); ESTIMATED GFR > 60; GLUCOSE 178 mg/dL (70-104); SODIUM 140 mmol/L (136-145); TCO2 39 mmol/L (25-35)
--- NOTE | 2018-10-06 18:34 | CONSULTATION ---
DATE OF CONSULTATION: 10/06/2018 REQUESTING PROVIDER: Dr. Steven Ocasio. REASON FOR CONSULTATION: Acute hypercapnic respiratory failure. HISTORY OF PRESENT ILLNESS: This is an 83-year-old male with a medical history of systolic congestive heart failure, atrial fibrillation, coronary artery disease, diabetes, peripheral vascular disease, benign pancreatic cyst, benign prostatic hyperplasia, pulmonary nodules and hypercholesterolemia. He was last admitted on 08/27/2018 to 09/03/2018 with generalized weakness and hypotension. After discharge, he has been followed up in our office for pulmonary nodules. He presented to the ER last night with disorientation, anorexia, and shortness of breath. Initial workup in the ER revealed acute hypercapnic respiratory failure and acute systolic congestive heart failure. He has been admitted to the [facility] for further evaluation and management. At the time of my examination, patient is still in the ER waiting for placement. The patient is lying in the bed comfortably without acute distress noted. He is a bit confused with poor memory. The patient's and brother are at the bedside. The patient's reported that the patient has severe shortness of breath for weeks and he has no fever, chills, chest pain, or palpitation. PAST MEDICAL AND SURGICAL HISTORY: 1. Systolic congestive heart failure. Echocardiogram on August 27, 2018 shows estimated EF of 35 to 40%. 2. Atrial fibrillation, persistent or permanent, status post ICD placement in November 2008 and defibrillator replacement in December 2012. The last check in January 2017 shows the device is working properly. 3. Coronary artery disease, severe with significant left ventricular dysfunction, status post double-vessel bypass in January 2008. 4. Diabetes mellitus type 2. 5. Diffuse peripheral vascular disease including an occluded right axillary artery. 6. Benign pancreatic cyst. 7. Benign prostatic hyperplasia with obstructive voiding. 8. Bilateral pulmonary nodules, revealed by CT angiogram pulmonary arteries on 08/29/2018; the possiblity of metastatic disease can't be excluded; on home oxygen p.r.n. 9. Hypercholesterolemia. 10. Right femoral neck fracture, status post bipolar hemiarthroplasty on May 27, 2017. 11. Polypectomy. 12. Bilateral cataract surgery in 2013. 13. Thoracentesis on 09/01/2018 for right pleural effusion with 800 ml of straw- colored serous fluid aspirated and lab results were consistent with transudate. SOCIAL HISTORY: The patient is and lives with his . He used to smoke 1 to 2 packs per day for about 55 years and quit in May 2010. He used to drink heavily with hard liquor and currently drinks about 4 ounces of bourbon weekly. He has no history of illicit drug use. FAMILY HISTORY: Positive for kidney failure, CVA, and lung cancer. REVIEW OF SYSTEMS: Difficult to be obtained. PHYSICAL EXAMINATION: Vital Signs: Blood pressure 85/67, pulse 78, respiratory rate 28, oxygen saturation 100% on 4 L nasal cannula. General: Chronically ill-appearing, lying in bed, in no active distress. The patient is alert and oriented at this time. HEENT: Atraumatic. Trachea midline. Mucosa pink and slightly dry. Respiratory: Lung expansion equal bilaterally. Auscultation revealed diminished breathing sounds bibasilarly and only inspiratory crackles with right side worse than left side. Cardiovascular: Regular rate and rhythm. Gastrointestinal: Normoactive bowel sounds in all 4 quadrants. Soft, nontender, and nondistended. Extremities: No pedal edema. No cyanosis. No clubbing. Dorsalis pedis pulse 2+ bilaterally. Neurologic: Alert and oriented x3. The patient is a bit confused, but overall his speech is fluent and he follows commands. IMAGING DATA: Chest CT revealed right pleural effusion and basilar atelectasis. The possibility of underlying pneumonia cannot be excluded. Lingular nodule, not present in 2012. The possibility of neoplastic disease cannot be excluded and further evaluation is recommended. Cardiomegaly. LAB DATA: White blood cells 6.26, hemoglobin 12.6, hematocrit 38.5, platelet 135,000. Sodium 140, potassium 4.0, chloride 93, carbon dioxide 39, BUN 31, creatinine 0.9, glucose 178. ASSESSMENT: This is an 83-year-old male with a past medical history of systolic congestive heart failure, atrial fibrillation, coronary artery disease, diabetes, peripheral vascular disease, benign pancreatic cyst, benign prostatic hyperplasia, bilateral pulmonary nodules and hypercholesterolemia. He has been admitted to the [facility] with acute hypercapnic respiratory failure and acute systolic congestive heart failure. 1. Acute on chornic hypoxemic hypercapnic respiratory failure. 2. Acute systolic congestive heart failure. 3. Stable pulmonary nodules with a growing lingular nodule 4. Recurrent right pleural effusion. 5. DNR1 PLAN: 1. Continue supplemental oxygen and consider BiPAP if needed. 2. Continue diuretics and antibiotics. 3. Follow up with chest x-ray, CBC, BMP, and ABG. 4. Outpatient follow up with imaging for pulmonary nodules. 5. Continue gastrointestinal and deep vein thrombosis prophylaxis. 6. Further recommendations pending hospital course. Thank you for the courtesy of this consult. Dictated by BRENT Celis for Pasha De MD cc: BRENT Celis MD [facility] J. Schmidt, MD [facility]
[2018-10-07] MEDS: PROTONIX IV SCH (01:18)
[2018-10-07] MEDS: LOVENOX SUBQ SCH (01:18)
[2018-10-07] MEDS: SODIUM CHLORIDE 0.9% INJ SCH (02:18)
[2018-10-07] MEDS: HUMALOG SUBQ SCH ×5 (02:18→20:36)
[2018-10-07] MEDS: DUONEB (A & A) INH SCH ×6 (02:40→23:36)
[2018-10-07] MEDS ORDERED: VANCOMYCIN 1,700 MG in NS 250 ML IV SCH (03:00)
[2018-10-07 05:25] LABS: ALLEN TEST YES; BE 13.6 mmoll (-3.0-3.0); BLOOD TYPE ARTERIAL; HCO3-(ACT) 35.5 mmoll (20.0-26.0); METHB 1.1 % (0.0-1.5); O2(CT) 16.1 mL/dL (15.0-23.0); PO2(98.6) 105 mmHg (60-100); SAMPLE BLOOD; SAO2 99.5 % (95.0-100.0); THB 11.8 g/dL (11.5-17.4); pH(98.6) 7.49 (7.35-7.45)
[2018-10-07 05:36] LABS: MODALITY CANNULA
[2018-10-07 05:37] LABS: PCO2(98.6) 51 mmHg (35-45)
[2018-10-07] MEDS: AZACTAM 1 GM in NS 50 ML IV SCH (06:13)
--- NOTE | 2018-10-07 08:01 | Diag Imaging Result Doc PS360 ---
CHEST-1 VIEW - 10/07/2018 INDICATION: SOB COMPARISON: 10/05/2018 FINDINGS: Stable sternotomy wires and pacemaker. Stable cardiomegaly. Pulmonary vascularity is top normal. There is a trace right pleural effusion. There is some linear atelectasis in the right lung base. No significant infiltrates. IMPRESSION: Cardiomegaly and pulmonary vascular congestion. Electronically signed by Cleveland Turner 10/07/2018 7:59 AM
--- NOTE | 2018-10-07 09:06 | PROGRESS NOTE ---
DATE: 10/07/2018 SUBJECTIVE: He feels better today. His blood pressures have stayed in the 80s and the high 70s systolic. I held his Lasix yesterday. He is off the BiPAP. He is on the nasal cannula now and breathing much better. No chest pain. He says he is getting a little bit of an appetite. His bowels are moving okay. OBJECTIVE: Vital Signs: Temperature 97.4 degrees, pulse 95, respirations 18, blood pressure 77/49. HEENT: Pupils are equal. Neck: His neck veins did not look as distended. Lungs: With decreased breath sounds in both bases but otherwise good air exchange through the remaining lung ricketts. Cardiovascular Examination: Regular rhythm and rate. PMI is diffuse. Carotid and radial pulses 2+ and symmetrical. Is and Os: Urine output from yesterday was about 1200 mL. Laboratory Data: Blood sugars have been fairly well controlled. Chest x-ray from this morning, cardiomegaly and pulmonary venous vascular congestion looks about the same. There is some linear atelectasis in the right lung. No significant infiltrates. ASSESSMENT AND PLAN: 1. Acute hypercapnic respiratory failure and acute pulmonary venous hypertension, acute systolic heart failure. He has systolic congestive heart failure with ejection fraction estimated at 35-40%. It actually may be a little lower than that. He appears to have better compensation. I have held his Lasix because his pressures have been running low. 2. Atrial fibrillation. He had an implantable cardioverter defibrillator placement in 2008, a defibrillator replacement in 2012. Last check was January 2017. His pacer seems to be working properly. 3. Coronary artery disease, significant left ventricular dysfunction. He has had double-vessel bypass in January of 2008. 4. Diabetes mellitus type 2. Sugars are in reasonable control. 5. Diffuse peripheral vascular disease including occluded right axillary artery. 6. Benign pancreatic cyst which we are following. 7. Benign prostatic hyperplasia with obstructive symptoms. 8. Hypercholesterolemia. 9. Right femoral neck fracture back in April 2017. 10. We will continue present measures. REVIEW OF ORDERS: Looking at his orders, he is on aztreonam, vancomycin, and levofloxacin. I do not see any definite infiltrate so I am not sure that he has any pneumonia. I am going to stop the vancomycin and I will stop the aztreonam. We will keep him on Levaquin for now. Dr. De is following. I am going to ask cardiology to help as he is a complex case. cc: Miguel Angel Mcintosh MD
[2018-10-07 10:51] LABS: AGAP 11; BUN 28 mg/dL (8-22); CALCIUM 8.6 mg/dL (8.8-10.2); CHLORIDE 95 mmol/L (98-107); COSMO 290; ESTIMATED GFR > 60; GLUCOSE 190 mg/dL (70-104); POTASSIUM 3.2 mmol/L (3.5-5.1); SODIUM 140 mmol/L (136-145); TCO2 34 mmol/L (25-35)
[2018-10-07] MEDS ORDERED: DUONEB (A & A) ONE (11:22)
[2018-10-07] MEDS: NS 1,000 ML IV SCH (11:35)
--- NOTE | 2018-10-07 15:39 | CARDIOLOGY CONSULTATION ---
DATE: 10/07/2018 CHIEF COMPLAINT ON PRESENTATION: Shortness of breath. Confusion. HISTORY OF PRESENT ILLNESS: Mr. Christy is an 83-year-old, white male with a history of coronary disease, congestive heart failure, COPD who presented with shortness of breath that has been ongoing for the last 2 to 3 days. He denies any overt orthopnea. The patient is on home oxygen therapy. He reports compliance with his medications and family is there to support that. He has had some confusion as well associated with this. No apparent falls. No apparent pain complaints or chest pain. He is not aware of any sick contacts. No recent fevers. PAST MEDICAL HISTORY: 1. Significant for coronary disease with a history of coronary bypass grafting. At that time, he had a saphenous vein graft to the LAD and a vein graft to the circumflex. The last cardiac catheterization on file appears to be from 2008. On that study demonstrated a left main proximal/ostial lesion of around 50 to 60%. The LAD was occluded in the midportion. The remainder of the LAD visualized through the vein graft was normal. Circumflex arose from the left main. There is a distal obtuse marginal branch seen filling from the vein graft. Circumflex was otherwise normal. Right coronary artery is a large dominant vessel which was normal. Vein graft to the LAD was widely patent. Vein graft to the obtuse marginal had a 40% distal narrowing where the graft inserts into the circumflex system. 2. Atrial fibrillation maintained on Eliquis and sotalol. 3. ICD implantation. 4. Hypertension. 5. Hyperlipidemia. 6. Diabetes. 7. Peripheral vascular disease with a history of right axillary artery occlusion. SOCIAL HISTORY: Patient lives with his . He quit smoking in 2019. He used to smoke 2 packs per day from than 40 years. No alcohol. No illicit drugs. FAMILY HISTORY: Father at age 73 from a CVA, mother at 92 from a stroke. REVIEW OF SYSTEMS: A 10 system review of systems is negative except for those mentioned in HPI. PHYSICAL EXAM: The patient is afebrile. His heart rates have been anywhere from the 80s to the low 100s. His blood pressure is 76/55. Most of his systolics here during the hospitalization have been in the 80s to 90s.General: He is in no acute distress. He is a elderly male, mild confusion. HEENT: Oropharynx is moist. Poor dentition. Eye examination shows pink conjunctivae. White sclerae. Neck: Shows no obvious thyromegaly or thyroid tenderness. Cardiovascular: He sounds to be in a regular rate and rhythm. I do not hear any obvious murmurs. He has no S3. He has no lower extremity edema. Chest: Has reduced breath sounds in the bilateral bases. He has no increased work of breathing. Abdomen: Soft, nontender, nondistended. He has no obvious organomegaly. Skin: Warm and dry throughout without any rashes. Neurological: He is moving all extremities well. He has no lateralizing deficits. Psychiatric: He is alert, oriented, pleasant. He has normal mood and affect. PERTINENT DATA: His EKG demonstrates an AV paced rhythm. That was from the at 3:32 a.m. He had a chest CT demonstrating a right pleural effusion with basilar atelectasis with the possibility of underlying pneumonia. He had a lingular nodule not present in 2002 suggesting the possibility of neoplastic disease. He had a head CT performed showing no evidence of any acute findings. His laboratory data yesterday demonstrated a white count of 6.2, his hematocrit is 38, his platelet count is 135,000. His ABG on presentation showed a pH 7.31, pCO2 of 80, PO2 of 207, that was on FiO2 of 36%. Today is pCO2 of 51 with a PO2 of 105. His AA gradient has improved to 31 today. His sodium is 140, potassium is 3.2, BUN 28, creatinine is 1. His proBNP on the was 3196. ASSESSMENT: Mr. Christy is an 83-year-old gentleman who presented for evaluation of shortness of breath. PLAN: He presented with confusion and hypercapnia. His CT demonstrates a sizeable pleural effusion. I would consider thoracentesis. Pulmonology service has been consulted on this patient. From a heart failure standpoint, we are limited in medications that we can use in this patient currently due to his hypotension. They did not endorse a significant history of volume depletion upon discussion with the patient. However we will reevaluate this. I restarted the patient's sotalol to try to help maintain sinus rhythm in this patient. We may give a slight fluid bolus today of around 500 mL. I would be cautious regarding his volume given his compromised lung function and heart function. Notably, he did have an echocardiogram that was done in July. This demonstrated a ejection fraction of 35 to 40%. Notably, he did have a MUGA scan performed August 27 with an ejection fraction calculated at 50% and visually it appeared be more likely in the 55 to 60% percent range. Given the patient's relative hypotension and recent normal LV function, the suspicion is his volume may be due to right-sided volume overload or pulmonary hypertension/COPD. cc: MD Miguel Angel Woods MD
[2018-10-07] MEDS: BETAPACE PO SCH (20:36)
[2018-10-07] MEDS ORDERED: PRINIVIL PO SCH (21:00)
[2018-10-07] MEDS ORDERED: ELIQUIS PO SCH (21:00)
[2018-10-08] MEDS: PROTONIX IV SCH (00:21)
[2018-10-08] MEDS: SODIUM CHLORIDE 0.9% INJ SCH (00:21)
[2018-10-08] MEDS: DUONEB (A & A) INH SCH ×7 (00:25→23:30)
[2018-10-08 03:39] LABS: ALLEN TEST YES; BE 9.7 mmoll (-3.0-3.0); BLOOD TYPE ARTERIAL; HCO3-(ACT) 32.3 mmoll (20.0-26.0); METHB 1.3 % (0.0-1.5); O2(CT) 13.8 mL/dL (15.0-23.0); PO2(98.6) 54 mmHg (60-100); SAMPLE BLOOD; SAO2 90.8 % (95.0-100.0); THB 11.2 g/dL (11.5-17.4); pH(98.6) 7.41 (7.35-7.45)
[2018-10-08 03:41] LABS: MODALITY ROOM AIR
[2018-10-08 03:42] LABS: O2HB 87.6 % (95.0-99.0); PCO2(98.6) 57 mmHg (35-45)
[2018-10-08 05:51] LABS: AGAP 8; BUN 23 mg/dL (8-22); CALCIUM 8.4 mg/dL (8.8-10.2); CHLORIDE 100 mmol/L (98-107); COSMO 290; CREATININE 0.7 mg/dL (0.7-1.2); ESTIMATED GFR > 60; GLUCOSE 186 mg/dL (70-104); POTASSIUM 3.3 mmol/L (3.5-5.1); SODIUM 141 mmol/L (136-145); TCO2 33 mmol/L (25-35)
[2018-10-08 06:08] LABS: FREE T4 1.1 ng/dL (0.93-1.70)
[2018-10-08] MEDS: HUMALOG SUBQ SCH ×4 (06:11→20:52)
--- NOTE | 2018-10-08 07:30 | Diag Imaging Result Doc PS360 ---
EXAM: CHEST-1 VIEW INDICATION: SOB TECHNIQUE: One view COMPARISON: 10/07/2018 FINDINGS: Pulmonary venous congestion is again noted. There has been an increase in the small pleural fluid on the right. There has been development of atelectasis and hazy infiltrate at the mid and lower lung zone on the right. No new consolidation is identified on the left. Cardiac silhouette is stable. IMPRESSION: Increasing right pleural effusion with adjacent atelectasis and/or infiltrate. Electronically signed by Leonardo Tabares 10/08/2018 7:28 AM
[2018-10-08] MEDS ORDERED: LASIX IV ONE (08:06)
[2018-10-08] MEDS: KLOR-CON PO SCH (08:26)
[2018-10-08] MEDS: BETAPACE PO SCH ×2 (08:26→20:52)
--- NOTE | 2018-10-08 08:29 | PROGRESS NOTE ---
DATE: 10/08/2018 SUBJECTIVE: He was resting comfortably. He is only on nasal cannula, feels stronger. Wanted to do some walking. OBJECTIVE: Vital signs: Temperature 97.2 degrees, pulse 79, respirations 20, blood pressure 119/60. Eyes: Pupils are equal. Lungs: Are clear in all lung ricketts. Cardiovascular: Regular rhythm and rate without murmur or S3. Abdomen: soft. Skin: Warm and dry. URINE OUTPUT: About 1700 mL. LABORATORY: Blood sugar 259, 89, 222 and 211. IMAGING: Chest x-ray from this morning, increasing right pleural effusion, adjacent atelectasis and possible infiltrate. ASSESSMENT AND PLAN: 1. We have been able to decrease his O2 requirement. He has not needed BiPAP. He is on nasal cannula. He presents again with hypercapnia. CT demonstrates sizable pleural effusion. So, Pulmonary is consulted. I guess we will consider thoracentesis again. On last CAT scan on last admission, there was some questionable increased adenopathy and lung nodules. They were scheduled to try and do an outpatient PET scan. I will see if we can maybe do that inpatient. He does look better clinically. 2. His blood pressures remain systolic in the 80s and 70s. It has come up a little bit, which is nice, 132/56 and 119/60. I have slowed down on the diuresis. 3. Atrial fibrillation. He has an implantable cardiac defibrillator placement, which was replaced in 2012. Last check was January 2017. Seems to be appropriately pacing. 4. Coronary artery disease, significant left ventricular dysfunction, double-vessel bypass in January 2008 and his ejection fraction last estimated was about 35 to 40 percent. 5. Diabetes mellitus type 2. Continue to follow sugars. 6. Benign pattern of pancreatic cysts, which we are following. 7. Benign prostatic hypertrophy. 8. Hypercholesterolemia. 9. Review of orders: He is on Zoloft 80 mg b.i.d., Protonix 40 mg IV q.24 hours, Lovenox 40 mg subcutaneous q.24 hours. We will start him back on Lasix 40 mg q.a.m. cc: Miguel Angel Mcintosh MD
[2018-10-08] MEDS ORDERED: LOVENOX SUBQ SCH (09:00)
[2018-10-08] MEDS ORDERED: LASIX PO SCH (09:00)
--- NOTE | 2018-10-08 14:21 | CARDIOLOGY PROGRESS NOTE ---
DATE: 10/08/2018 SUBJECTIVE: Mr. Christy reports he feels much better today. He is not having any pain complaints. His breathing is apparently better. PHYSICAL EXAMINATION: Vital signs: He is afebrile, heart rate of 80, his blood pressure is 123/71. His intakes and outputs seem to be a total net negative over the course of the hospitalization, documented at -1 0.8 L. Generally: He is in no acute distress. Cardiovascular: He sounds to be in a regular rate and rhythm. I do not hear any obvious murmurs. He has no lower extremity edema. Chest: Has reduction in breath sounds in the bilateral bases to the lower 1/3 with some mild rales there as well. Abdomen: Soft, nontender, nondistended. PERTINENT LABORATORY DATA: He has no CBC data today. His ABG was reviewed, he has a normal pH with a pCO2 of 57. His sodium is 141, potassium 3.3 BUN 23, creatinine 0.7. Mag level is 2.0. ASSESSMENT: Mr. Christy is an 83-year-old gentleman who presented with shortness of breath, hypercapnic respiratory failure. PLAN: He continues to have pleural effusions which, by chest x-ray today, appear to be enlarged, especially on the right. I am not clear what the etiology of this pleural effusion is. Given his heart function appears normal and historically he had much reduced or oral liquid and solid intake prior to presentation with maintenance of IV fluids. In addition, he presented with significant hypotension with systolics in the 70s to 80s for most of the initial portion of the hospitalization. He is due to undergo thoracentesis at some point during this hospitalization. He does have a history of atrial fibrillation and is maintained on sotalol. We discontinued the apixaban secondary to potential need for the thoracentesis. He had been on some spironolactone 25 mg every other day. His potassium is a little bit low. I will try to place him on 12.5 mg daily. cc: MD Miguel Angel Woods MD
--- NOTE | 2018-10-08 15:30 | Diag Imaging Result Doc PS360 ---
EXAM: CHEST-2 VIEWS INDICATION: POST THORACENTESIS TECHNIQUE: 2 views COMPARISON: 10/08/2018 FINDINGS: There is no evidence of pneumothorax status post right thoracentesis. The pleural effusion has decreased significantly in size during the interval as a result of the thoracentesis. No new consolidation is identified. Cardiac silhouette is stable. IMPRESSION: No evidence of pneumothorax status post right thoracentesis. Electronically signed by Leonardo Tabares 10/08/2018 3:27 PM
--- NOTE | 2018-10-08 15:31 | Diag Imaging Result Doc PS360 ---
EXAM: US THORACENTESIS W/IMAGE GUIDE INDICATION: Diagnostic and therapeutic TECHNIQUE: COMPARISON: 09/01/2018 FINDINGS: Risks, benefits, and alternatives were discussed with the patient and informed consent was obtained. The patient was prepped and draped in sterile fashion and local anesthesia was achieved with 1% lidocaine solution. Using ultrasound guidance, a large bore catheter was inserted into the right pleural space and 1100 mL of straw-colored serous fluid was aspirated. There were no known complications. A plain radiograph of the chest after the procedure showed no pneumothorax. IMPRESSION: Technically successful ultrasound-guided right thoracentesis. Electronically signed by Leonardo Tabares 10/08/2018 3:29 PM
[2018-10-08 18:40] LABS: TOTAL PROT BODY FLUID 1.7 g/dL
[2018-10-08 18:41] LABS: BODY FLUID SOURCE PLEURAL FLUID
[2018-10-08 18:42] LABS: BODY FLUID SOURCE PLEURAL FLUID
[2018-10-08 18:45] LABS: AMYLASE BODY FLUID 27 U/L; GLUCOSE BODY FLUID 183 mg/dL; LDH BODY FLUID 82 U/L
[2018-10-08 19:22] LABS: PH BODY FLUID 7.5; SPECIMEN PLEURAL FLUID
[2018-10-08 19:55] LABS: BODY FLUID SOURCE PLEURAL FLUID; MONOS 91 %; POLYS 9 %; WBC BF 170 /cumm
[2018-10-09 05:26] LABS: ALLEN TEST YES; BE 7.8 mmoll (-3.0-3.0); BLOOD TYPE ARTERIAL; HCO3-(ACT) 30.9 mmoll (20.0-26.0); METHB 0.6 % (0.0-1.5); O2(CT) 16.1 mL/dL (15.0-23.0); O2HB 92.1 % (95.0-99.0); PO2(98.6) 61 mmHg (60-100); SAMPLE BLOOD; SAO2 95.2 % (95.0-100.0); THB 12.4 g/dL (11.5-17.4); pH(98.6) 7.42 (7.35-7.45)
[2018-10-09 05:29] LABS: MODALITY CANNULA; PCO2(98.6) 52 mmHg (35-45)
[2018-10-09] MEDS: DUONEB (A & A) INH SCH ×6 (05:50→23:22)
[2018-10-09 06:11] LABS: AGAP 9; BUN 24 mg/dL (8-22); CALCIUM 8.5 mg/dL (8.8-10.2); CHLORIDE 101 mmol/L (98-107); COSMO 283; CREATININE 0.7 mg/dL (0.7-1.2); ESTIMATED GFR > 60; GLUCOSE 96 mg/dL (70-104); POTASSIUM 3.8 mmol/L (3.5-5.1); SODIUM 140 mmol/L (136-145); TCO2 30 mmol/L (25-35)
[2018-10-09] MEDS: SODIUM CHLORIDE 0.9% INJ SCH (06:14)
[2018-10-09] MEDS: PROTONIX IV SCH (06:14)
[2018-10-09] MEDS: HUMALOG SUBQ SCH ×4 (06:57→21:02)
--- NOTE | 2018-10-09 07:22 | Diag Imaging Result Doc PS360 ---
EXAM: CHEST-1 VIEW INDICATION: SOB TECHNIQUE: One view COMPARISON: 10/08/2018 FINDINGS: The lungs are grossly clear except for trace atelectasis in the right midlung zone. There is no discrete pleural fluid collection or pneumothorax. There is stable cardiomegaly. Central vasculature is unremarkable. IMPRESSION: Minimal atelectasis in the right midlung zone. Stable chest, otherwise. Electronically signed by Leonardo Tabares 10/09/2018 7:20 AM
--- NOTE | 2018-10-09 08:43 | PROGRESS NOTE ---
DATE: 10/09/2018 SUBJECTIVE: Mr. Christy has had a good night. His appetite has come back, which he is real encouraged with. Breathing comfortably and much stronger. OBJECTIVE: Vital Signs: Temp 98 degrees, pulse 82, respirations 16, blood pressure 113/64. HEENT: Pupils are equal and round. No distended neck veins this morning. Lungs: Clear anterolateral with decreased breath sounds in both bases. No wheezing. Cardiovascular: Regular rhythm and rate without murmur or S3. Abdomen: Soft. Skin: Warm and dry. Urine output is 2200 mL. Blood sugar 211, 230, 126. IMAGING: Chest x-ray: Minimal atelectasis in the right midlung zone. Stable chest otherwise. There is no discrete pleural fluid collection or pneumothorax. He had a thoracentesis yesterday, and they removed about 1100 mL of straw-colored serous fluid. This seems to have really helped. LABORATORY DATA: Sodium 140, potassium 3.8, chloride 101, BUN 24, creatinine 0.7. Blood sugars have been 230, 336, 96, and 126. ASSESSMENT AND PLAN: 1. Presented with carbon dioxide retention, respiratory failure, required bilevel positive airway pressure for a while. He was diuresed some with improvement, and then thoracentesis yesterday seemed to have really helped. They are asking about whether they can obtain a PET scan. We may need to pursue that as an outpatient, but I will see. 2. Blood pressures have come up, and I think he is feeling better with that. I think we will give him 40 of Lasix daily, and he is on spironolactone 12.5 mg a day. 3. 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 Ejection fraction is about 35% to 40%. 4. Diabetes mellitus type 2. Sugar is under good control. 5. Benign prostatic hypertrophy. 6. 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 Will increase his activity, and possibility that he could go home in the morning. cc: Miguel Angel Mcintosh MD
[2018-10-09] MEDS ORDERED: ALDACTONE PO SCH (09:00)
[2018-10-09] MEDS: LASIX PO SCH (09:09)
[2018-10-09] MEDS: BETAPACE PO SCH ×2 (09:09→21:01)
[2018-10-09] MEDS: ALDACTONE PO SCH (09:09)
[2018-10-09] MEDS: KLOR-CON PO SCH (09:10)
--- NOTE | 2018-10-09 13:34 | CARDIOLOGY PROGRESS NOTE ---
DATE: 10/09/2018 SUBJECTIVE: Mr. Christy reports he feels better today. He did have a thoracentesis with removal of 1100 mL in the interim. PHYSICAL EXAMINATION: Vital Signs: He is afebrile, heart rate 87, blood pressure 110/89. General: He is in no acute distress. Cardiovascular: He sounds to be in a regular rate and rhythm. He has no obvious murmurs. He has no S3. He has no lower extremity edema. Chest: Examination sounds improved. He still has some mild basilar rales but the right lung field is much better. He has no increased work of breathing. Abdomen: Soft, nontender. PERTINENT DATA: His chest x-ray shows no evidence of central vascular prominence. His pleural fluid has resolved after the thoracentesis. Laboratory data shows a sodium of 140, potassium is 3.8, his BUN is 24, creatinine 0.7. ProBNP is 1764, which is down from 3196 on presentation. ASSESSMENT: Mr. Christy is an 83-year-old gentleman who presented with a right pleural effusion and hypercapnic respiratory failure. PLAN: I am still unclear of the etiology of the patient's effusion. He did have a transudative effusion but he did not clinically seem like he was in heart failure, given the fact that he was seemingly volume depleted due to low oral intake, continued taking of his Lasix, as well as relative hypotension on presentation. He has improved in the interim. I have restarted his spironolactone at 12.5 mg daily and would continue on this regimen for the time-being. cc: MD Miguel Angel Woods MD
[2018-10-10 05:50] LABS: ALLEN TEST YES; BE 7.7 mmoll (-3.0-3.0); BLOOD TYPE ARTERIAL; HCO3-(ACT) 30.7 mmoll (20.0-26.0); METHB 1.2 % (0.0-1.5); O2(CT) 14.3 mL/dL (15.0-23.0); PCO2(98.6) 43 mmHg (35-45); PO2(98.6) 52 mmHg (60-100); SAMPLE BLOOD; SAO2 92.2 % (95.0-100.0); THB 11.5 g/dL (11.5-17.4); pH(98.6) 7.48 (7.35-7.45)
[2018-10-10 05:51] LABS: O2HB 88.7 % (95.0-99.0)
[2018-10-10 06:06] LABS: AGAP 10; BUN 22 mg/dL (8-22); CALCIUM 7.9 mg/dL (8.8-10.2); CHLORIDE 99 mmol/L (98-107); COSMO 281; CREATININE 0.8 mg/dL (0.7-1.2); ESTIMATED GFR > 60; GLUCOSE 96 mg/dL (70-104); SODIUM 139 mmol/L (136-145); TCO2 30 mmol/L (25-35)
[2018-10-10] MEDS: DUONEB (A & A) INH SCH ×2 (06:10→08:22)
[2018-10-10] MEDS: HUMALOG SUBQ SCH (06:14)
[2018-10-10] MEDS ORDERED: PROTONIX PO SCH (07:00)
[2018-10-10 07:26] VITALS: BP 114/60
--- NOTE | 2018-10-10 07:30 | Diag Imaging Result Doc PS360 ---
CHEST-1 VIEW - 10/10/2018 INDICATION: SOB COMPARISON: 10/09/2018 FINDINGS: Stable pacemaker. Stable sternotomy wires. Stable cardiomegaly and pulmonary vascular congestion. No infiltrates or edema. No large pleural effusion. IMPRESSION: Cardiomegaly and pulmonary vascular congestion. Electronically signed by Cleveland Turner 10/10/2018 7:28 AM
[2018-10-10] MEDS: ALDACTONE PO SCH (09:17)
[2018-10-10] MEDS: LASIX PO SCH (09:17)
[2018-10-10] MEDS: KLOR-CON PO SCH (09:17)
[2018-10-10] MEDS: BETAPACE PO SCH (09:17)
--- NOTE | 2018-10-10 09:36 | DISCHARGE SUMMARY ---
ADMISSION DATE: 10/06/2018 DISCHARGE DATE: 10/10/2018 HISTORY: He presented on 10/06/2018. He is a patient of mine. An 83-year-old who presented with shortness of breath. He has a past medical history of coronary artery disease, diabetes mellitus type 2, peripheral vascular disease, history of diastolic heart failure and systolic heart failure. In the emergency room, once again a large pleural effusion on the right side, hypoxemic and CO2 retention. The patient was trying to get a PET scan as an outpatient, but has not been able to do so thus far. PAST MEDICAL HISTORY: 1. Coronary artery disease. 2. Diabetes mellitus type 2. 3. Peripheral vascular disease. 4. Chronic diastolic heart failure. 5. Chronic atrial fibrillation. 6. Hypercholesterolemia. 7. Osteoarthritis. PAST SURGICAL HISTORY: 1. Double-vessel CABG in January of 2008. 2. ICD placement in November of 2008, and replacement defibrillator 2012. 3. Cataract surgery. 4. Right hip surgery in 2016. He was admitted to the hospital with acute hypercarbic and hypoxemic respiratory failure. [place] it was combination of his COPD, pleural effusion and his diastolic and systolic dysfunction. He was diuresed and showed some minimal improvement. Dr. De of Pulmonary was consulted, and in July of this year echo showed estimated ejection fraction about 35 to 40 percent. He has underlying atrial fibrillation which is persistent and permanent. He has an ICD which was placed in 2008 and replaced in 2012. Coronary artery disease, which is severe with significant left ventricular dysfunction, status post double-vessel bypass in 2007. He required BiPAP for a while. He was able to come off the BiPAP, and use the O2 face mask. Dr. De ordered a thoracentesis on 10/08/2018 so he had 1100 mL of straw-colored serous fluid tapped off. He felt much better, and breathing much better. Blood pressures came up. His followup chest x-ray on the day of discharge showed cardiomegaly and pulmonary vascular congestion, but marked improvement in pleural effusion. Plan to let him go home. We will continue his DuoNeb's as needed. Lasix 40 mg p.o. daily, Protonix 40 mg a day, Klor-Con 40 mEq daily, Betapace 80 mg p.o. b.i.d., and Aldactone 12.5 mg daily. We will put him back on Eliquis 5 mg b.i.d. and we will have him on Flomax 0.4 mg daily. He already has O2 at home. I will plan on seeing back in my office in about a week. cc: Miguel Angel Mcintosh MD
== END 2018-10-10 10:48 | disposition home health service (06) | DRG 291 ==
LOC: SUPCPDRO → ED 20:11 → EDIPHOLD 10-06 01:29 → SUATTDRO 10-06 01:29 → 3S 10-07 01:28
PROVIDERS: ADMIT Emergency Medicine; ATTEND Emergency Medicine
CPT/HCPCS: 32421; 32555; 70450; 71010; 71020; 71045; 71046; 71250; 80048; 80053; 81001; 82150; 82550; 82805; 82945; 82948; 83036; 83605; 83615; 83735; 83880; 83986; 84157; 84439; 84443; 84484; 85025; 85610; 85730; 87040; 87070; 87088; 89051; 93005; 94640; 94761; 96361; 96365; 96366; 96367; 96368; 96372; 96375; 96376; 97116; 97162; 97530; 99285; 99291; A9270; C9113; J1650; J1815; J1940; J1956; J3370; J7030; J7040; S0073; S0164; XXXXX

== ENCOUNTER 2018-12-05 13:09 | Inpatient (IN) ==
[2018-12-05] MEDS ORDERED: DUONEB (A & A) INH ONE (14:12)
[2018-12-05 14:33] LABS: ALLEN TEST YES; BE 9.9 mmoll (-3.0-3.0); BLOOD TYPE ARTERIAL; HCO3-(ACT) 32.6 mmoll (20.0-26.0); METHB 1.4 % (0.0-1.5); O2(CT) 15.5 mL/dL (15.0-23.0); O2HB 95.8 % (95.0-99.0); PO2(98.6) 129 mmHg (60-100); SAMPLE BLOOD; SAO2 99.3 % (95.0-100.0); THB 11.3 g/dL (11.5-17.4); pH(98.6) 7.26 (7.35-7.45)
[2018-12-05 14:36] LABS: MODALITY CANNULA; PCO2(98.6) 89 mmHg (35-45)
[2018-12-05 14:56] LABS: BASO# 0.01 X1000 (0.0-0.2); BASO% 0.1 % (0.0-0.8); EOS# 0.07 X1000 (0.0-0.7); HEMATOCRIT 37.9 % (42.0-52.0); HEMOGLOBIN 11.8 g/dL (14.0-18.0); IMM GRAN# 0.04 X1000 (0.0-0.04); IMM GRAN% 0.6 % (0.0-0.5); LYMPH# 1.14 X1000 (1.2-3.4); LYMPH% 16.9 % (20.5-51.1); MCH 30.7 PG (27-31); MCHC 31.1 g/dL (33-37); MCV 98.7 FL (81-99); MONO# 0.73 X1000 (0.11-0.59); MONO% 10.8 % (1.7-9.3); MPV 10.2 FL (7.4-10.4); NEUT# 4.74 X1000 (1.4-6.5); NEUT% 70.6 % (42.2-75.2); PLT 162 X1000 (130-400); RBC 3.84 XMIL (4.7-6.1); RDW 14.3 % (11.5-14.5); WBC 6.73 X1000 (4.8-10.8)
[2018-12-05 15:25] LABS: AGAP 9; ALB/GLOB RATIO 1.4; ALKALINE PHOSPHATASE 87 U/L (32-122); BUN 35 mg/dL (8-22); CALCIUM 8.9 mg/dL (8.8-10.2); CHLORIDE 95 mmol/L (98-107); COSMO 301; CREATININE 1.1 mg/dL (0.7-1.2); ESTIMATED GFR > 60; GLUCOSE 305 mg/dL (70-104); GOT 18 U/L (10-34); GPT 13 U/L (10-44); POTASSIUM 4.8 mmol/L (3.5-5.1); SODIUM 141 mmol/L (136-145); TCO2 37 mmol/L (25-35); TOTAL BILIRUBIN 0.54 mg/dL (0.20-1.00); TOTAL PROTEIN 6.9 g/dL (6.3-8.3)
--- NOTE | 2018-12-05 15:30 | Diag Imaging Result Doc PS360 ---
EXAM: CHEST-2 VIEWS - 12/05/2018 HISTORY: sob TECHNIQUE: Chest two views COMPARISON: 10/10/2018 portable chest, 10/08/2018 chest two views FINDINGS: There is cardiomegaly similar to prior. There are sternal wires from previous surgery and transvenous cardiac pacemaker again seen. There is mild elevation of the right hemidiaphragm. Apparent small right pleural effusion. There is no consolidation or substantial vascular congestion identified. There is no pneumothorax identified. IMPRESSION: Cardiomegaly similar to prior. Mild elevation of right hemidiaphragm. Apparent small right pleural effusion. Electronically signed by Robert Acosta 12/05/2018 3:28 PM
--- NOTE | 2018-12-05 17:22 | HISTORY AND PHYSICAL ---
HISTORY OF PRESENT ILLNESS: This is a 83-year-old patient of mine. He just was in the hospital back on 10/06/2018. He came in with shortness of breath. His stated that 3 or 4 days ago he started to become more short of breath, weaker. Blood pressure was running around the 90s systolic and they brought him back to the emergency room. She does not give any history that he has had cough, productive sputum, fever, chills. No chest pain. No palpitations. PAST MEDICAL HISTORY: 1. Coronary artery disease. 2. Diabetes mellitus type 2. 3. Peripheral vascular disease. 4. Chronic diastolic heart failure. 5. Chronic atrial fibrillation. 6. Hypercholesterolemia. 7. Osteoarthritis. PAST SURGICAL HISTORY: 1. Double-vessel CABG in January 2008. 2. ICD placement November 2008, replacement defibrillator in 2012. 3. Cataract surgery. 4. Right hip surgery. 5. He has a history of atrial fibrillation, maintained on Eliquis and sotalol. 6. He had thoracentesis on 10/08/2018 and michael off 1100 mL of straw-colored fluid in the right pleural space. SOCIAL HISTORY: Lives with his . He quit smoking 2018. Used to smoke 2 packs a day for over 40 years. No alcohol consumption. No drugs. ALLERGIES: Patient allergic to penicillin. FAMILY HISTORY: Father at 73 of CVA. Mother age 92 of stroke. Mother had a history of hypertension, coronary artery disease. REVIEW OF SYSTEMS: Constitutional: They have not noticed a change in his weight. No fever or chills. HEENT: No change in visual or hearing acuity. Just general weakness and fatigue and seems to be more short of breath. Cardiovascular: No chest pain or tachy palpitations. GI/: Unremarkable. Musculoskeletal/Neurologic: No significant complaints, just general weakness. Endocrinologic/Hematologic: No significant history. PHYSICAL EXAMINATION: VITAL SIGNS: Temperature 97.2 degrees, pulse 80, respirations 40, blood pressure 118/67. Weight 187 pounds. Height 5 feet 7 inches. He is on BiPAP at the present time. HEENT: Pupils are equal and round. LUNGS: Clear in all lung ricketts. CARDIOVASCULAR: Regular rhythm and rate without murmur or S3. ABDOMEN: Soft. SKIN: Warm and dry. No sign of rashes. No oral, nasal mucosa lesions. EXTREMITIES: No pedal edema. LABORATORY STUDIES: White blood cell count 6730, hematocrit 37, platelet count 162,000. Sodium 141, potassium 4.8, chloride 95, bicarbonate 37, AST 18, ALT is 13, alkaline phosphatase 87. Troponin 0.018. ProBNP 2911. Blood gas revealed pH is 7.26, pCO2 89, pO2 is 129, and that is on 32% FiO2 nasal cannula. He is now on I think BiPAP. His chest x-ray, cardiomegaly, mild elevation right hemidiaphragm, small right pleural effusion. No sign of infiltrate. ASSESSMENT AND PLAN: 1. Acute on chronic hypoxemic hypercapnic respiratory failure. He does not appear to have volume overload. I am going to give him back some volume to see if this does help as his systolic pressure is low. No sign of infection. 2. He has predominantly diastolic dysfunction. His latest echocardiogram, he does have reduced ejection fraction 35% to 40%. Notably, he did have a MUGA scan in July, had ejection fraction 50% and visually appeared to be more likely 55% to 60%, so I am going to give him back a little bit of volume. 3. Chronic obstructive pulmonary disease and he requires home oxygen. I suspect some sleep apnea or obstructive apnea as well. He has not had a sleep study yet and we will see if maybe CPAP will help. His echocardiogram done in July, his pulmonary arterial pressures appeared about 50 mmHg. Currently, he is on the following medications: DuoNeb 3 mL q.4 h. p.r.n., Elavil 10 mg at bedtime, Eliquis 5 mg b.i.d., Lasix 40 mg a day and I think we have cut that down to once a day, metformin 500 mg b.i.d., Protonix 40 mg p.o. daily, potassium chloride 20 mg daily, Requip 0.25 p.o. daily, Zoloft 25 mg a day, Betapace 80 mg b.i.d., Aldactone 12.5 mg daily and Flomax 0.4 mg daily. I am going to leave his current medications alone, see if I can add back a little bit of fluid with normal saline. I will run his normal saline at 85 mL an hour tonight and continue the BiPAP as needed. Ask Pulmonary and Cardiology to help in the morning. cc: Miguel Angel Mcintosh MD
[2018-12-05] MEDS ORDERED: ZOFRAN IV PRN (18:17)
[2018-12-05] MEDS ORDERED: TYLENOL PO PRN (18:17)
--- NOTE | 2018-12-05 19:19 | PROVIDER DOCUMENTATION ---
This chart was entered by Rebekah Tabares Scribe, acting as scribe for Melvin Moe MD. HPI-Respiratory General - General Chief Complaint: Shortness of Breath Stated Complaint: RESP DISTRESS Time Seen by Provider: 12/05/18 13:55 Source: patient Allergies/Adverse Reactions: Patient Allergies Allergy/AdvReac Type Severity Reaction Status Date / Time Penicillins Allergy Unknown Verified 12/05/18 15:00 Home Medications: Home Medication List Medication Instructions Recorded Confirmed Last Taken Type Apixaban [Eliquis] 5 mg PO BID 06/19/15 10/05/18 05/24/17 08:00 History Sotalol [Betapace] 80 mg PO BID tablet 05/30/17 10/05/18 08/27/18 07:00 Rx Amitriptyline [Elavil] 10 mg PO HS 08/27/18 10/05/18 08/26/18 21:00 History Metformin [Glucophage] 500 mg PO BID CC 08/27/18 10/05/18 08/27/18 07:00 History Furosemide [Lasix] 40 mg PO DAILY 30 Days #30 tab 09/03/18 10/05/18 Unknown Rx Potassium Chloride 20 meq PO DAILY 10/05/18 10/05/18 Unknown History Ropinirole [Requip] 0.25 mg PO DAILY 10/05/18 10/05/18 Unknown History Sertraline [Zoloft] 25 mg PO DAILY 10/05/18 10/05/18 Unknown History Tamsulosin [Flomax] 0.4 mg PO DAILY 10/05/18 10/05/18 Unknown History Albuterol 2.5MG/Ipratrop 0.5MG 3 ml INH RTQ4H neb 10/10/18 Unknown Rx [Duoneb (A & A)] Furosemide [Lasix] 40 mg PO DAILY 30 Days #30 tab 10/10/18 Unknown Rx Pantoprazole [Protonix] 40 mg PO ACB 30 Days #30 tab 10/10/18 Unknown Rx Spironolactone [Aldactone] 12.5 mg PO DAILY 30 Days #30 tab 10/10/18 Unknown Rx - History of Present Illness-Resp Nature of Presenting Problem: 83 yom c/o sob becoming worse over past few days. pt reports mild confusion. pt denies orthopnea, cough, wheezes, and lightheadedness. pt has hx of copd, htn and chf. o2 in place in er. Review of Systems - Adult - REVIEW OF SYSTEMS - ADULT Constitutional: reports: no symptoms reported. denies: chills, fever, night sweats Eyes: reports: no symptoms reported Ears, Nose, Mouth & Throat: reports: no symptoms reported. denies: ear pain, sinus problem, throat swelling Cardiovascular: reports: no symptoms reported. denies: chest pain, poor circulation, syncope Respiratory: reports: see HPI, shortness of breath. denies: cough, dyspnea on exertion, hemoptysis, wheezing Gastrointestinal: reports: no symptoms reported. denies: abdominal pain, diarrhea, vomiting Genitourinary: reports: no symptoms reported Musculoskeletal: reports: no symptoms reported Integumentary: reports: no symptoms reported Neurological: reports: no symptoms reported Psychiatric: reports: no symptoms reported Endocrine: reports: no symptoms reported Hematologic/Lymphatic: reports: no symptoms reported Allergic/Immunologic: reports: no symptoms reported All Other Systems: Reviewed and Negative Past History - Adult - PAST MEDICAL HISTORY-ADULT Review of Records: reports: Old Records Reviewed, Nursing Assessment Review, Medications Reviewed, Social history reviewed & non-contributory. Major Childhood Illnesses: reports: denies history Cardiovascular: reports: A-Fib, CAD, CHF, HTN Respiratory: reports: COPD Gastrointestinal: reports: denies history Obstetrical/Gynecological: reports: denies history Genitourinary: reports: stenosis/obstruction Musculoskeletal: reports: other (RESTLESS LEGS) Neurological: reports: denies history Endocrine/Immune: reports: Diabetes Other Conditions: reports: denies history - PRIOR SURGERIES/PROCEDURES Surgical/Procedure History: reports: CABG (2008), pacemaker - IMMUNIZATION STATUS Childhood Immunizations: See Nurse Assessment Flu Vaccine: See Nurse Assessment - FAMILY HISTORY Family History: reviewed, not pertinent - SOCIAL HISTORY Smoking: cigarettes, other (former smoker) Substance Use: alcohol Alcohol Use Frequency: occasionally Physical Exam-General - PHYSICAL EXAM-ADULT Initial Vital Signs Reviewed: Yes - CONSTITUTIONAL General Appearance: mild distress, other (slightly dowsy) - EYES Eyes: PERRL/EOMI - HEAD, EARS, NOSE, MOUTH & THROAT HENMT: normocephalic/atraumatic, moist mucous membranes, normal ENT inspection - NECK Neck: non-tender, full range of motion, supple, normal inspection - RESPIRATORY Respiratory: chest non-tender, no pleuratic chest pain, no accessory muscle use, respiratory distress (mild), decreased breath sounds (bilat), crackles (bilat). negative: lungs clear, normal breath sounds, no respiratory distress, rhonchi, stridor, wheezing - CARDIOVASCULAR Cardiovascular: normal peripheral pulses, regular rate, rhythm - GASTROINTESTINAL (ABDOMEN) Abdominal Exam: normal bowel sounds, non tender, soft, no organomegaly, no pulsatile mass - MUSCULOSKELETAL Back Exam: normal inspection, no CVA tenderness, no vertebral tenderness Extremity: normal range of motion, non-tender, normal inspection Peripheral Pulses: radial (R): 2+, radial (L): 2+ - SKIN Integumentary: normal color, normal turgor, warm/dry - NEUROLOGIC Neurologic: grossly normal, no motor/sensory deficits - PSYCHIATRIC Psych/Mental Status: normal mood/affect, normal thought content, normal thought process, oriented x 3 Progress - PLAN OF CARE/RESULTS Progress/Plan/Lab Results: Vital Signs - 8 hr 12/05/18 13:44 12/05/18 13:47 12/05/18 13:49 Temperature 97.2 F L Pulse Rate 80 81 Respiratory Rate 34 H 18 Blood Pressure 83/60 83/60 12/05/18 13:50 12/05/18 14:00 12/05/18 14:06 Temperature Pulse Rate 82 76 81 Respiratory Rate 31 H 31 H 30 H Blood Pressure 118/67 12/05/18 14:20 12/05/18 14:30 12/05/18 14:33 Temperature Pulse Rate 75 80 75 Respiratory Rate 29 H 42 H 27 H Blood Pressure 118/78 12/05/18 14:39 12/05/18 15:03 12/05/18 16:03 Temperature Pulse Rate 75 79 75 Respiratory Rate 33 H 36 H 26 H Blood Pressure 123/68 123/66 92/67 12/05/18 16:33 12/05/18 17:03 12/05/18 17:33 Temperature Pulse Rate 75 76 80 Respiratory Rate 24 22 25 H Blood Pressure 90/69 100/70 105/79 Laboratory Results - last 24 hr 12/05/18 12/05/18 12/05/18 14:25 14:34 14:34 WBC 6.73 RBC 3.84 L Hgb 11.8 L Hct 37.9 L MCV 98.7 MCH 30.7 MCHC 31.1 L RDW Std Deviation 14.3 Plt Count 162 MPV 10.2 Immature Gran % (Auto) 0.6 H Neut % (Auto) 70.6 Lymph % (Auto) 16.9 L [place] % (Auto) 10.8 H Eos % (Auto) 1.0 Baso % (Auto) 0.1 Immature Gran # (Auto) 0.04 Neut # (Auto) 4.74 Lymph # (Auto) 1.14 L [place] # (Auto) 0.73 H Eos # (Auto) 0.07 Baso # (Auto) 0.01 Specimen Type ARTERIAL Sample Site L RADIAL pH 7.26 L pCO2 89 H* pO2 129 H HCO3 32.6 H Base Excess 9.9 H Oxyhemoglobin 95.8 ABG O2 Sat (Calculated) 15.5 ABG O2 Saturation 99.3 ABG Carboxyhemoglobin 2.10 ABG Methemoglobin 1.4 Miguel Angel Test YES A-a O2 Difference -12.0 Total Hemoglobin 11.3 L Lactate 0.90 Liter Flow 3.0 Blood Gas Modality CANNULA FiO2 % 32.0 Sodium Potassium Chloride Carbon Dioxide Anion Gap BUN Creatinine Estimated GFR/1.73 m2 BUN/Creatinine Ratio Glucose Calculated Osmolality Calcium Total Bilirubin AST ALT Alkaline Phosphatase Troponin T 0.018 Gyl-I-Zkmigxqdfkg Pept Total Protein Albumin Globulin Albumin/Globulin Ratio 12/05/18 12/05/18 14:34 14:34 WBC RBC Hgb Hct MCV MCH MCHC RDW Std Deviation Plt Count MPV Immature Gran % (Auto) Neut % (Auto) Lymph % (Auto) [place] % (Auto) Eos % (Auto) Baso % (Auto) Immature Gran # (Auto) Neut # (Auto) Lymph # (Auto) [place] # (Auto) Eos # (Auto) Baso # (Auto) Specimen Type Sample Site pH pCO2 pO2 HCO3 Base Excess Oxyhemoglobin ABG O2 Sat (Calculated) ABG O2 Saturation ABG Carboxyhemoglobin ABG Methemoglobin Miguel Angel Test A-a O2 Difference Total Hemoglobin Lactate Liter Flow Blood Gas Modality FiO2 % Sodium 141 Potassium 4.8 Chloride 95 L Carbon Dioxide 37 H Anion Gap 9 BUN 35 H Creatinine 1.1 Estimated GFR/1.73 m2 > 60 BUN/Creatinine Ratio 32 Glucose 305 H Calculated Osmolality 301 Calcium 8.9 Total Bilirubin 0.54 AST 18 ALT 13 Alkaline Phosphatase 87 Troponin T Jrq-D-Jwhrmfwbfln Pept 2911 H Total Protein 6.9 Albumin 4.0 Globulin 2.9 Albumin/Globulin Ratio 1.4 Orders Category Date Time Status Admit - [facility] Routine AdmDCTranf 12/05/18 18:17 Active Activity - Up with Assistance ORDERED Care 12/05/18 18:17 Active Apply Mechanical Device [QM] ORDERED Care 12/05/18 18:17 Active DVT/PE Risk Assess/Protocol [QM] ORDERED Care 12/05/18 18:17 Active FSBS/Accucheck Result AC + HS Care 12/05/18 18:17 Active Intake and Output-Strict ORDERED Care 12/05/18 18:17 Active Nursing- MD Consult Request ROUTINE Care 12/05/18 18:17 Active Vital Signs Order Q 8-HR ASSESS Care 12/05/18 18:17 Active Z-Document. for Tele Applied ORDERED Care 12/05/18 18:17 Active Physician/Provider Consults Routine Cons 12/05/18 18:17 Ordered Physician/Provider Consults Routine Cons 12/05/18 18:17 Ordered Diabetic Diet Diet 12/05/18 18:17 Active CHEST-PORTABLE [RAD] Routine Exams 12/06/18 06:00 Ordered cxr [CHEST-2 VIEWS] [RAD] Stat Exams 12/05/18 14:10 Completed ABG [RESP] Routine Lab 12/05/18 14:25 Completed ABG [RESP] Routine Lab 12/06/18 06:00 Ordered BNP [PRO B-NATRIURETIC PEPTIDE] Stat Lab 12/05/18 14:34 Completed CBC WITH DIFF [HEME] Routine Lab 12/06/18 06:00 Ordered CBC WITH ELECTRONIC DIFF [HEME] Stat Lab 12/05/18 14:34 Completed CMP [COMPREHENSIVE METABOLIC PANEL] [CHEM] Stat Lab 12/05/18 14:34 Completed COMPREHENSIVE METABOLIC PANEL [CHEM] Routine Lab 12/06/18 06:00 Ordered MAGNESIUM [CHEM] Routine Lab 12/06/18 06:00 Ordered TROPONIN T Routine Lab 12/06/18 06:00 Ordered TROPONIN T Stat Lab 12/05/18 14:34 Completed TSH Routine Lab 12/06/18 06:00 Ordered 0.9% Sodium Chloride Inj [Ns] 1,000 ml Med 12/05/18 18:17 Active IV 85 mls/hr Acetaminophen [Tylenol] Med 12/05/18 18:17 Active 650 mg PO Q6H PRN PRN Albuterol 2.5MG/Ipratrop 0.5MG [Duoneb (A & A)] Med 12/05/18 19:30 Active 3 ml INH RTQ4H Albuterol 2.5MG/Ipratrop 0.5MG [Duoneb (A & A)] Med 12/05/18 14:12 Discontinued 6 ml INH NOW ONE Amitriptyline [Elavil] Med 12/05/18 21:00 Active 10 mg PO HS Apixaban [Eliquis] Med 12/05/18 21:00 Active 5 mg PO BID Ondansetron [Zofran] Med 12/05/18 18:17 Active 4 mg IV Q4H PRN PRN Pantoprazole [Protonix] Med 12/06/18 07:00 Active 40 mg PO ACB Sertraline [Zoloft] Med 12/06/18 09:00 Active 25 mg PO DAILY Sotalol [Betapace] Med 12/05/18 21:00 Active 80 mg PO BID Spironolactone [Aldactone] Med 12/06/18 09:00 Active 12.5 mg PO DAILY Tamsulosin [Flomax] Med 12/06/18 09:00 Active 0.4 mg PO DAILY Aerosol Treatments Routine Oth 12/05/18 14:12 Completed Aerosol Treatments Routine Ot 12/05/18 18:17 Active Aerosol Treatments Stat Ot 12/05/18 14:12 Completed Aerosol Treatments Stat Oth 12/05/18 18:17 Active BIPAP Stat Ot 12/05/18 14:51 Active Pulse Oximetry Routine Oth 12/05/18 18:17 Active Telemetry [OM.EQ] Routine Oth 12/05/18 18:17 Active EKG [EKG] Stat Ther 12/05/18 14:13 Ordered Physical Therapy Eval/Treatment [OM.PT] Routine Ther 12/05/18 18:17 Active Transfer/Admit Order [TRANSFER] Routine Transfer 12/05/18 17:01 Completed Respiratory distress, abnormal ABG, now on Bipap need further management in the hospital. Result Diagrams: 12/05/18 14:34 12/05/18 14:34 - XRAY 1 XRAY: Bilateral XRAY Study: Chest (EXAM: CHEST-2 VIEWS - 12/05/2018 HISTORY: sob TECHNIQUE: Chest two views COMPARISON: 10/10/2018 portable chest, 10/08/2018 chest two views FINDINGS: There is cardiomegaly similar to prior. There are sternal wires from previous surgery and transvenous cardiac pacemaker again seen. There is mild elevation of the right hemidiaphragm. Apparent small right pleural effusion. There is no consolidation or substantial vascular congestion identified. There is no pneumothorax identified. IMPRESSION: Cardiomegaly similar to prior. Mild elevation of right hemidiaphragm. Apparent small right pleural effusion. Electronically signed by Robert Acosta 12/05/2018 3:28 PM) Impression: Abnormal Comparison with other Films: changes noted - CONSULTS/PCP/HOSPITALIST Notification #1 *Consult/PCP/Hospitalist*: Dr. Mcintosh Consult Disposition: Admit (We called Dr. Mcintosh, he saw patient in the ED, accepted.) Departure - Departure Date of Disposition Decision: 12/05/18 Time of Disposition Decision: 17:18 DIAGNOSIS: Respiratory distress Respiratory failure Qualifiers: Chronicity: unspecified Respiratory failure complication: hypercapnia Qualified Code(s): J96.92 - Respiratory failure, unspecified with hypercapnia Disposition: ADMITTED INPATIENT 09 Certified Medical Emergency: Emergent Condition: Stable - Critical Care Note This patient required my direct & personal management of CC.: No Attestation - Physician/ LAN Attestation Patient care was provided by Advanced Practice Provider:: No The physician spent face to face time with patient:: Yes Advanced Practice Provider documentation review:: Supervising physician onsite and consulted in the evaluation and care of this patient. The physician did have a face to face encounter with the patient. This chart was documented by the indicated scribe, (Rebekah Tabares Scribe) and accurately reflects the services I performed and decisions made by me, Melvin Cabrera MD, as attested by the provider's signature.
[2018-12-05] MEDS ORDERED: NS 1,000 ML ONE (20:03)
[2018-12-05] MEDS: NS 1,000 ML IV SCH (20:04)
[2018-12-05] MEDS: ELIQUIS PO SCH (21:26)
[2018-12-05] MEDS: ELAVIL PO SCH (21:26)
[2018-12-05] MEDS: BETAPACE PO SCH (21:26)
[2018-12-05] MEDS: DUONEB (A & A) INH SCH ×2 (21:29→23:45)
[2018-12-06 03:24] LABS: ALLEN TEST YES; BE 12.7 mmoll (-3.0-3.0); BLOOD TYPE ARTERIAL; HCO3-(ACT) 34.8 mmoll (20.0-26.0); METHB 1.1 % (0.0-1.5); O2(CT) 14.6 mL/dL (15.0-23.0); O2HB 94.5 % (95.0-99.0); PO2(98.6) 83 mmHg (60-100); SAMPLE BLOOD; SAO2 97.7 % (95.0-100.0); THB 10.9 g/dL (11.5-17.4); pH(98.6) 7.36 (7.35-7.45)
[2018-12-06 03:26] LABS: MODALITY BI PAP
[2018-12-06 03:30] LABS: PCO2(98.6) 72 mmHg (35-45)
[2018-12-06] MEDS: DUONEB (A & A) INH SCH ×6 (03:33→23:00)
[2018-12-06 05:44] LABS: BASO# 0.01 X1000 (0.0-0.2); BASO% 0.2 % (0.0-0.8); EOS# 0.15 X1000 (0.0-0.7); EOS% 2.8 % (0.0-10.0); HEMATOCRIT 34.9 % (42.0-52.0); HEMOGLOBIN 10.7 g/dL (14.0-18.0); LYMPH# 1.11 X1000 (1.2-3.4); LYMPH% 20.6 % (20.5-51.1); MCH 30.1 PG (27-31); MCHC 30.7 g/dL (33-37); MCV 98.3 FL (81-99); MONO# 0.65 X1000 (0.11-0.59); MPV 10.2 FL (7.4-10.4); NEUT# 3.48 X1000 (1.4-6.5); NEUT% 64.4 % (42.2-75.2); PLT 147 X1000 (130-400); RBC 3.55 XMIL (4.7-6.1); RDW 14.3 % (11.5-14.5)
[2018-12-06 06:15] LABS: AGAP 6; ALB/GLOB RATIO 1.3; ALBUMIN 3.4 g/dL (3.5-5.0); ALKALINE PHOSPHATASE 73 U/L (32-122); BUN 32 mg/dL (8-22); CHLORIDE 99 mmol/L (98-107); COSMO 296; ESTIMATED GFR > 60; GLUCOSE 214 mg/dL (70-104); GOT 17 U/L (10-34); GPT 12 U/L (10-44); MAGNESIUM 1.9 mg/dL (1.5-2.7); POTASSIUM 4.5 mmol/L (3.5-5.1); SODIUM 142 mmol/L (136-145); TCO2 37 mmol/L (25-35); TOTAL BILIRUBIN 0.54 mg/dL (0.20-1.00)
[2018-12-06] MEDS: PROTONIX PO SCH (06:25)
--- NOTE | 2018-12-06 08:09 | Diag Imaging Result Doc PS360 ---
EXAM: CHEST-PORTABLE INDICATION: copd TECHNIQUE: One view COMPARISON: 12/05/2018 FINDINGS: Small right pleural effusion is approximately stable. Given slight differences in positioning, the lungs are approximately stable with no definite new consolidation. Cardiac silhouette is stable. IMPRESSION: Essentially stable chest given slight differences in positioning. Electronically signed by Leonardo Tabares 12/06/2018 8:07 AM
[2018-12-06] MEDS: NS 1,000 ML IV SCH ×2 (08:11→21:03)
[2018-12-06] MEDS: FLOMAX PO SCH (08:26)
[2018-12-06] MEDS: BETAPACE PO SCH ×2 (08:26→21:03)
[2018-12-06] MEDS: ALDACTONE PO SCH (08:26)
[2018-12-06] MEDS: ELIQUIS PO SCH ×2 (08:26→21:03)
[2018-12-06] MEDS ORDERED: ZOLOFT PO SCH (09:00)
--- NOTE | 2018-12-06 09:45 | PROGRESS NOTE ---
DATE: 12/06/2018 SUBJECTIVE: Mr. Christy is better. He feels better, breathing better, a little more awake. He wore the BiPAP for most of the night. OBJECTIVE: Vital Signs: Temperature 97.6 degrees, pulse 78, respirations 18, blood pressure 107/71, so blood pressure has come up. Eyes: Pupils are equal and round. Lungs: Clear in all lung ricketts. Cardiovascular exam: Regular rate without murmur or S3. Abdomen: Soft. Skin: Warm and dry. LABS: Reviewed his labs from yesterday, and really pretty unremarkable. ASSESSMENT AND PLAN: 1. He had respiratory acidosis which is fairly mild, but CO2 retention. He has underlying chronic obstructive pulmonary disease, and I think it is advanced with CO2 retention and chronic hypoxemia. We have been diuresing him because he has both diastolic and systolic dysfunction. I think he was a little dry, and I think his right-sided pressures have been measured around 50 or 60 mmHg. I think he was dry and his right heart struggled. We gave him some fluid back. I think this is improved. I will give him a little more fluid back. We will get Cardiology and Pulmonary involved. I do not see any sign of infection. 2. History of coronary artery disease. Aware. 3. History of peripheral vascular disease. 4. Hypertension. 5. Hypercholesterolemia. 6. 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 We will check electrolytes again in the morning. Check another chest x-ray, but he does appear improved. We used the BiPAP as needed. cc: Miguel Angel Mcintosh MD
--- NOTE | 2018-12-06 17:49 | CONSULTATION ---
DATE OF CONSULTATION: 12/06/2018 IMPRESSION: 1. Recurrent hypercapnic/hypoxemic respiratory failure. I strongly suspect hypoventilation primary underlying etiology related to chronic obstructive pulmonary disease and very likely sleep apnea. 2. Chronic congestive heart failure with preserved left ventricular ejection fraction. MUGA scan in July indicated left ejection fraction of 50%. Suspect combination of left ventricular diastolic dysfunction and moderate pulmonary hypertension underlying as tendency for congestive heart failure. 3. Atherosclerotic coronary disease. Patient is status post coronary bypass grafting 2007. He is also status post implantable cardioverter defibrillator placement November 2008 and had replacement defibrillator in 2012. 4. Chronic atrial fibrillation. 5. Hyperlipidemia. 6. Peripheral vascular disease. RECOMMENDATIONS: 1. Agree with plan as outlined by Dr. Mcintosh. BiPAP appears to be essential. 2. Consider thoracentesis on the right. However chest x-ray does not indicate a large pleural effusion at this time. HISTORY: This 83-year-old white male with past history of chronic congestive heart failure, previous instances of hypercapnic/hypoxemic respiratory failure with associated pleural effusion, COPD, chronic atrial fibrillation, and hyperlipidemia was admitted with recurrent hypoxemic/hypercapnic respiratory failure. He indicates that the last several days he has had increased tendency for shortness of breath as well as drowsiness. He has been feeling weaker. There has been no chest pain nor orthopnea. His has become quite familiar with his clinical course and brought him to the hospital for evaluation after which he was admitted. He was found to have hypoxemic/hypercapnic respiratory failure. He has been suspected of having sleep apnea but has yet to have sleep study completed. He has been started on BiPAP. PAST MEDICAL HISTORY: 1. Atherosclerotic coronary disease as outlined above. 2. Chronic atrial fibrillation. 3. Chronic CHF with left ejection fraction 50%. 4. Peripheral vascular disease. 5. Hyperlipidemia. 6. Type 2 diabetes mellitus. 7. Osteoarthritis. PAST SURGICAL HISTORY: Includes coronary bypass grafting 2007, defibrillator placement 2008, defibrillator generator replacement 2012, cataract surgery, unspecified right hip surgery. ALLERGIES: He is allergic or intolerant to penicillin. MEDICATIONS PRIOR TO ADMISSION: As listed. SOCIAL HISTORY: He lives with his . He quit smoking earlier this year and previously smoked 2 packs of cigarettes per day for approximately 40 years. He does not use alcohol. FAMILY HISTORY: Negative for premature coronary disease. REVIEW OF SYSTEMS: Pulmonary: Noteworthy for shortness of breath but negative for orthopnea. There has been no significant cough. Gastrointestinal: Negative. Constitutional: Negative. Remainder review of systems negative/noncontributory with 14 total systems reviewed. PHYSICAL EXAMINATION: A elderly white male in no distress on supplemental oxygen.Vital signs: Blood pressure 107/71, heart rate 78 and irregular. Oxygen saturation 94%. HEENT: Extraocular muscles appear intact. Mucous membranes moist. Neck: Supple without significant jugular venous distention. Chest: Auscultation of the chest reveals some diminished breath sounds in the right base with some inspiratory crackles on the right just above region of diminished breath sounds. There are a few inspiratory crackles in the left base. Cardiac: Reveals an irregular rate and rhythm without appreciable murmur or gallop. Abdomen: Soft. Bowel sounds normal. Extremities: Without edema. LABORATORY DATA: Includes a white blood cell count of 5.4, hematocrit 34.9, hemoglobin 10.7, platelet count 147,000. Arterial blood gas on admission with pH 7.26, pCO2 89, PO2 129. Repeat arterial blood gas this morning with pH 7.36, pCO2 72, PO2 83 on BiPAP with FiO2 of 30%. Sodium 142, potassium 4.5, chloride 99, carbon dioxide 37, BUN 32, creatinine 1.0. Troponin T initially 0.018, followup troponin T 0.022. TSH 1.17. Albumin 3.4. cc: MD Miguel Angel Woo MD
--- NOTE | 2018-12-06 19:29 | CONSULTATION ---
DATE OF CONSULTATION: 12/06/2018 CHIEF COMPLAINT: Shortness of breath, weakness. HISTORY OF PRESENT ILLNESS: This is an 83-year-old male with a complaint of shortness of breath and weakness, with a complaint of progressive shortness of breath and weakness over the last few days. Mr. Christy was previously admitted in the hospital back on 10/06/2018. Recent chest x-ray revealed small right pleural effusion which is stable. The patient denies chest pain. REVIEW OF SYSTEMS: A 10-point review of systems was obtained and the pertinence is listed within the HPI, otherwise noncontributory. PAST MEDICAL HISTORY: 1. Coronary artery disease. 2. Diabetes mellitus type 2. 3. Peripheral vascular disease. 4. Chronic systolic heart failure. 5. Chronic atrial fibrillation. 6. Hypercholesterolemia. 7. Osteoarthritis. 8. History of atrial fibrillation. He is on Eliquis and sotalol. PAST SURGICAL HISTORY: 1. Cataract surgery. 2. Right hip surgery. 3. ICD placement, replacement of defibrillator in 2012. 4. Double-vessel CABG in 01/2008. 5. Recent thoracentesis on 10/08/2018. SOCIAL HISTORY: Lives with his . Ex-smoker, used to smoke 2 packs a day for over 40 years. Denies alcohol consumption or illicit drug use. ALLERGIES: Penicillin. FAMILY HISTORY: Father with CVA, at 73. Mother of stroke at the age of 92. Mother also had hypertension and coronary artery disease. PHYSICAL EXAMINATION: Vital signs: Blood pressure 105/78, temperature 96.4 degrees, pulse 77, respirations 16, O2 saturation 93% on room air.General: This is an 83-year-old male, sitting up in a chair during assessment, in no acute distress at the present time. HEENT: Pupils are equal, round and reactive. Neck is supple. Trachea midline. Mucus membranes pink and moist. Lungs clear, nonlabored. Cardiovascular: Regular rate and rhythm. No gallops, rubs or murmurs. Abdomen is soft. Active bowel sounds in 4 quadrants. Skin warm, dry and intact. Extremities without clubbing, cyanosis or edema. DIAGNOSTIC DATA: As mentioned in the HPI. LABORATORY DATA: White blood cells 5.40, red blood cells 3.55, hematocrit 34.9, hemoglobin 10.7. PH 7.36, pCO2 is 72, pO2 is 83, HCO3 is 34.8, base excess 12.7, oxyhemoglobin 94.5. Sodium 142, potassium 4.5, chloride 99, carbon dioxide 37, BUN 32, creatinine 1.0, glucose 214. Albumin 3.4, total protein 6.0. ASSESSMENT AND PLAN: 1. [id number]-ezdwhdh hypoxemic hypercapnic respiratory failure. We will continue bilevel positive airway pressure use. 2. Chronic obstructive pulmonary disease. He is on home supplemental oxygen. Continue bronchodilators and oxygen. 3. Continue deep venous thrombosis and gastrointestinal prophylaxis. Thank you for the courtesy of this consult. Dictated by BRENT Khan for Pasha De MD cc: BRENT Khan MD Allen J. Schmidt, MD
[2018-12-06] MEDS: ELAVIL PO SCH (21:03)
[2018-12-06] MEDS: ZOLOFT PO SCH (21:03)
[2018-12-07] MEDS: DUONEB (A & A) INH SCH ×5 (03:21→19:00)
[2018-12-07 04:35] LABS: ALLEN TEST YES; BE 9.5 mmoll (-3.0-3.0); BLOOD TYPE ARTERIAL; HCO3-(ACT) 32.4 mmoll (20.0-26.0); METHB 0.2 % (0.0-1.5); O2(CT) 8.7 mL/dL (15.0-23.0); O2HB 96.2 % (95.0-99.0); PO2(98.6) 77 mmHg (60-100); SAMPLE BLOOD; SAO2 99.1 % (95.0-100.0); THB 6.3 g/dL (11.5-17.4); pH(98.6) 7.32 (7.35-7.45)
[2018-12-07 04:36] LABS: MODALITY BI PAP
[2018-12-07 04:39] LABS: PCO2(98.6) 71 mmHg (35-45)
[2018-12-07 06:13] LABS: AGAP 6; ALB/GLOB RATIO 1.4; ALBUMIN 3.6 g/dL (3.5-5.0); ALKALINE PHOSPHATASE 95 U/L (32-122); BUN 27 mg/dL (8-22); CALCIUM 8.6 mg/dL (8.8-10.2); CHLORIDE 99 mmol/L (98-107); COSMO 296; ESTIMATED GFR > 60; GLUCOSE 230 mg/dL (70-104); GOT 15 U/L (10-34); GPT 11 U/L (10-44); POTASSIUM 4.4 mmol/L (3.5-5.1); SODIUM 142 mmol/L (136-145); TCO2 37 mmol/L (25-35); TOTAL BILIRUBIN 0.51 mg/dL (0.20-1.00); TOTAL PROTEIN 6.1 g/dL (6.3-8.3)
[2018-12-07] MEDS: PROTONIX PO SCH (06:14)
[2018-12-07] MEDS: FLOMAX PO SCH (08:21)
[2018-12-07] MEDS: BETAPACE PO SCH ×2 (08:21→20:14)
[2018-12-07] MEDS: ELIQUIS PO SCH ×2 (08:21→20:14)
[2018-12-07] MEDS: ALDACTONE PO SCH (08:21)
--- NOTE | 2018-12-07 09:20 | Diag Imaging Result Doc PS360 ---
EXAM: CHEST-1 VIEW INDICATION: SOB TECHNIQUE: One view COMPARISON: 12/06/2018 FINDINGS: Opacity at the right lung base has increased slightly suggesting slight worsening of atelectasis and/or infiltrate. There is also likely a small effusion that is essentially stable. No other new consolidation is identified. Cardiac silhouette is stable. IMPRESSION: Slight increased opacity at the right lung base compared to the prior study as described. Electronically signed by Leonardo Tabares 12/07/2018 9:18 AM
--- NOTE | 2018-12-07 10:25 | PROGRESS NOTE ---
DATE: 12/07/2018 SUBJECTIVE: Mr. Christy had a little better night. Breathing a little better. Still pretty weak. He did use the BiPAP last night. PHYSICAL EXAMINATION: Temperature 98.1 degrees, pulse 82, respirations 17, blood pressure 123/60. Pupils are equal and round. Lungs are clear in all lung ricketts. Cardiovascular Examination: Regular rhythm and rate without murmur or S3. Urine output was 800 mL. LABORATORY DATA: Chest x-ray from this morning, slight increased opacity in the right lung bases compared to prior study. ASSESSMENT AND PLAN: 1. Acute on chronic hypoxemic, hypercapnic respiratory failure. Continue bilevel positive airway pressure as needed and at night. 2. Chronic obstructive pulmonary disease exacerbation. Continue supplemental oxygen, bronchodilators. [place] he was volume depleted. We will cut the volume down. X-ray does not show any true infiltrate. 3. Continue deep venous thrombosis and gastrointestinal prophylaxis. He is on Betapace 80 mg twice a day, spironolactone 12.5 mg daily, Flomax 0.4 mg, Zoloft 25 mg at bedtime, Elavil 10 mg at bedtime, and Eliquis 5 mg a day. I will decrease his normal saline from 85. We will cut that down to 45 mL an hour. Note, his blood sugars appear well controlled. cc: Miguel Angel Mcintosh MD
[2018-12-07] MEDS: NS 1,000 ML IV SCH (15:43)
[2018-12-07] MEDS: ZOLOFT PO SCH (20:14)
[2018-12-07] MEDS: ELAVIL PO SCH (20:14)
[2018-12-08] MEDS: DUONEB (A & A) INH SCH ×7 (00:28→23:05)
[2018-12-08 03:39] LABS: ALLEN TEST YES; BE 9.3 mmoll (-3.0-3.0); BLOOD TYPE ARTERIAL; O2(CT) 11.3 mL/dL (15.0-23.0); PO2(98.6) 52 mmHg (60-100); SAMPLE BLOOD; SAO2 89.7 % (95.0-100.0); THB 9.4 g/dL (11.5-17.4); pH(98.6) 7.39 (7.35-7.45)
[2018-12-08 03:40] LABS: MODALITY BI PAP
[2018-12-08 03:42] LABS: O2HB 85.6 % (95.0-99.0); PCO2(98.6) 59 mmHg (35-45)
[2018-12-08] MEDS: PROTONIX PO SCH (05:59)
--- NOTE | 2018-12-08 07:58 | PROGRESS NOTE ---
DATE: 12/08/2018 SUBJECTIVE: Mr. Christy is better. His breathing is better. He did not use the BiPAP much last night. OBJECTIVE: Temperature 97.5 degrees, pulse 89, respirations 16, and blood pressure 81/51. Pupils are equal and round. Lungs are clear in all lung ricketts anterolateral. Cardiovascular exam is regular rhythm and rate without murmur or S3. Urine output was 600 mL. Blood sugar 208, 233 and 199. ASSESSMENT AND PLAN: 1. Acute on chronic hypoxemic hypercapnic respiratory failure. It was felt like he was volume depleted, and seemed to improve with a little volume return. We are going to get Physical Therapy to walk around a little bit today. Hopefully, he can go home tomorrow. 2. Chronic obstructive pulmonary disease exacerbation. He has chronic hypoxia. He will continue his O2. He is supposed to have a sleep study I think in about 8 days, and I expect he will qualify for CPAP which will help. 3. Continue deep venous thrombosis prophylaxis and GI prophylaxis. In looking at his labs today, blood sugars appear well controlled. Chest x-ray from yesterday with slight increased opacity right lung base compared to prior study, but otherwise no real change. cc: Miguel Angel Mcintosh MD
[2018-12-08] MEDS: BETAPACE PO SCH ×2 (08:27→20:03)
[2018-12-08] MEDS: FLOMAX PO SCH (08:27)
[2018-12-08] MEDS: ELIQUIS PO SCH (08:27)
[2018-12-08] MEDS: ALDACTONE PO SCH (08:27)
--- NOTE | 2018-12-08 11:39 | Diag Imaging Result Doc PS360 ---
EXAM: CT THORAX W/O CONTRAST HISTORY: SOB TECHNIQUE: CT chest without contrast COMPARISON: 10/06/2018 FINDINGS: Moderate to large right-sided pleural effusion measuring 6.5 cm posteriorly and inferiorly in the midline. This is slightly larger than on the prior study. There is also a small left pleural effusion measuring 1.6 cm. The heart is enlarged. Sternal wires are present with a left-sided pacemaker. Severe atherosclerosis. No aortic aneurysm. There are calcified right hilar lymph nodes stable small noncalcified nodes. There is atelectasis in the lower lungs with questionable small infiltrates. This is similar to the prior study. There is a 12 mm lobulated nodule inferiorly in the left upper lobe similar in size to the prior study. IMPRESSION: Slight interval increase in the size of the pleural effusions. This exam was performed using automated exposure control, adjustment of mA or kV according to patient size, and/or use of iterative reconstruction technique. Electronically signed by Gera Danielson 12/08/2018 11:36 AM
[2018-12-08] MEDS: NS 1,000 ML IV SCH (17:40)
--- NOTE | 2018-12-08 17:55 | PROGRESS NOTE ---
DATE: 12/08/2018 SUBJECTIVE: Patient more drowsy today and reportedly did not wear his BiPAP consistently overnight. He denies any chest discomfort or dyspnea. OBJECTIVE: Vital Signs: Blood pressure 105/67, heart rate 73. Oxygen saturation 96% on nasal cannula oxygen at 3 L/minute. Neck: Jugular venous distention cannot be appreciated. Chest: Auscultation of the chest reveals diminished breath sounds in the right base posteriorly. Cardiac exam: Reveals a regular rate and rhythm without appreciable murmur or gallop. Extremities: Are without edema. DIAGNOSTICS: Chest CT scan indicates interval increase in size of pleural effusions with moderate to large right-sided pleural effusion demonstrated and small left pleural effusion. LABORATORY DATA: Includes arterial blood gases, pH 7.39, pCO2 of 59, pO2 of 52 on BiPAP with FiO2 of 21%. IMPRESSION: 1. Recurrent hypercapnic/hypoxemic respiratory failure. Suspect COPD, but cannot include hypoventilation such as sleep apnea. 2. Chronic congestive heart failure with preserved left ventricular ejection fraction. MUGA scan in July indicated left ventricular ejection fraction of 50%. Suspect combination of left ventricular diastolic dysfunction and moderate pulmonary hypertension. Underlying tendency for congestive heart failure. The patient has recurrent right pleural effusion which is increased in size and may be affecting pulmonary function. 3. Atherosclerotic coronary disease with previous coronary bypass grafting in 2007. Patient is status post previous implantable defibrillator in 2008. 4. Chronic atrial fibrillation. 5. Hyperlipidemia. 6. Peripheral vascular disease. RECOMMENDATIONS: 1. Continue efforts to utilize BiPAP. 2. Given increase in size of right pleural effusion, favor thoracentesis on the right for therapeutic purposes. We will hold Eliquis and schedule ultrasound-guided thoracentesis for Saturday. cc: MD Miguel Angel Woo MD
[2018-12-08] MEDS: ZOLOFT PO SCH (20:04)
[2018-12-08] MEDS: ELAVIL PO SCH (20:04)
[2018-12-09] MEDS: DUONEB (A & A) INH SCH ×6 (03:30→23:00)
[2018-12-09 05:55] LABS: BLOOD TYPE ARTERIAL; SAMPLE BLOOD
[2018-12-09 05:56] LABS: ALLEN TEST YES; BE 7.2 mmoll (-3.0-3.0); HCO3-(ACT) 30.6 mmoll (20.0-26.0); METHB 0.7 % (0.0-1.5); O2(CT) 14.9 mL/dL (15.0-23.0); PO2(98.6) 162 mmHg (60-100); THB 10.7 g/dL (11.5-17.4); pH(98.6) 7.38 (7.35-7.45)
[2018-12-09] MEDS: PROTONIX PO SCH (06:02)
[2018-12-09] MEDS: NS 1,000 ML IV SCH (06:02)
[2018-12-09 06:09] LABS: MODALITY BI PAP; PCO2(98.6) 57 mmHg (35-45)
[2018-12-09 06:45] LABS: AGAP 9; BUN 22 mg/dL (8-22); CALCIUM 8.2 mg/dL (8.8-10.2); CHLORIDE 100 mmol/L (98-107); COSMO 285; CREATININE 0.9 mg/dL (0.7-1.2); ESTIMATED GFR > 60; GLUCOSE 176 mg/dL (70-104); MAGNESIUM 1.9 mg/dL (1.5-2.7); POTASSIUM 4.2 mmol/L (3.5-5.1); SODIUM 139 mmol/L (136-145); TCO2 30 mmol/L (25-35)
--- NOTE | 2018-12-09 07:21 | Diag Imaging Result Doc PS360 ---
EXAM: CHEST-1 VIEW HISTORY: SOB TECHNIQUE: Portable chest two views COMPARISON: 12/07/2018 FINDINGS: The heart is mildly enlarged and there is pulmonary edema. There are sternal wires and a left-sided pacemaker. There is a small right pleural effusion with atelectasis and infiltrates. The overall appearance is similar to the prior exam. IMPRESSION: No interval improvement. Electronically signed by Gera Danielson 12/09/2018 7:19 AM
[2018-12-09] MEDS: ALDACTONE PO SCH (08:27)
[2018-12-09] MEDS: BETAPACE PO SCH ×2 (08:28→20:07)
[2018-12-09] MEDS: FLOMAX PO SCH (08:28)
[2018-12-09] MEDS ORDERED: MILK OF MAGNESIA PO PRN (09:33)
[2018-12-09] MEDS ORDERED: DULCOLAX PR PRN (09:34)
[2018-12-09] MEDS ORDERED: COLACE PO ONE (09:50)
--- NOTE | 2018-12-09 12:00 | PROGRESS NOTE ---
DATE: 12/09/2018 SUBJECTIVE: He did not have such a good night, a little more short of breath this morning, still very weak and his mouth feels dry. OBJECTIVE: Vitals: Temperature 97.7 degrees, pulse 74, respirations 16, blood pressure 117/59. HEENT: Pupils are equal and round. Lungs: Clear in all lung ricketts. Cardiovascular: Regular rhythm and rate without murmur or S3. Abdomen: Soft. Skin: Warm and dry. Extremities: No pedal edema. DIAGNOSTIC DATA: Urine output is 1200 mL. Chest x-ray: No interval improvement. The heart is mildly enlarged. There is pulmonary edema. There are sternal wires and a left-sided pacemaker. There is a small right pleural effusion and atelectasis with infiltrates about the same as the previous chest x-ray. CT of chest shows slight increase in size of pleural effusion, about 6.5 cm posterior and inferiorly in the midline, slightly larger than prior study. Also, small left pleural effusion measuring 1.6 cm. Has a left-sided pacemaker, severe atherosclerosis. No aortic aneurysm. He has calcific right hilar lymph nodes. Stable, small noncalcific nodes. Atelectasis in the lower lungs, questionable small infiltrate. He has a 12 mm lobulated nodule inferior left lower lobe, similar size to prior study. He has had a recent PET scan did not show any unusual findings or sign of metastatic disease. ASSESSMENT: 1. Recurrent hypercapnic hypoxemic respiratory failure. Suspect chronic obstructive pulmonary disease but would like to include a continuous positive airway pressure for sleep apnea as well. He has both right and left heart failure and severe chronic obstructive pulmonary disease. He does have some pleural effusions and pulmonary venous hypertension, but I have given back a little bit of volume as his blood pressure is running low. 2. Chronic congestive heart failure, preserved left ventricular ejection fraction up to this year in July. His left ventricular ejection is 50% and then he has diastolic dysfunction there, moderate pulmonary hypertension, and recurrent pleural effusions. 3. Atherosclerotic coronary artery disease, previous coronary artery bypass graft in 2007, status post previous implantable defibrillator 2008. 4. Chronic atrial fibrillation. 5. Hyperlipidemia. 6. Peripheral vascular disease. 7. Benign prostatic hypertrophy. PLAN: Utilize the BiPAP. Given increased size right pleural effusion, he may need a thoracentesis on the right. We will hold the Eliquis and schedule ultrasound-guided thoracentesis for Saturday I think is the plan. We will continue present orders and he is on Betapace 80 mg b.i.d., spironolactone 12.5 mg daily, Flomax 0.4 mg daily, Colace will put him back on 200 mg twice a day, milk of magnesia as needed, he is on Elavil 10 mg at bedtime, and Zoloft 25 mg a day. cc: Miguel Angel Mcintosh MD
--- NOTE | 2018-12-09 18:40 | PROGRESS NOTE ---
DATE: 12/09/2018 SUBJECTIVE: Patient more awake and reportedly had a good night last night. He denies any shortness of breath or chest discomfort. OBJECTIVE: Vital Signs: Blood pressure 120/69, heart rate 88, oxygen saturation 100% on nasal cannula oxygen. Neck: Jugular venous distention cannot be appreciated. Lungs: Auscultation of the chest reveals diminished breath sounds in the right base posteriorly. Cardiac: Irregular rate and rhythm without appreciable murmur or gallop. There is no evidence of peripheral edema. LABORATORY DATA: Arterial blood gas: pH 7.3, pCO2 57, pO2 162, on BiPAP with FiO2 of 30%. Sodium 139, potassium 4.2, chloride 100, carbon dioxide 30, BUN 22, creatinine 0.9, glucose 221, magnesium 1.9. IMPRESSION: 1. Recurrent hypercapnic respiratory failure. Suspect chronic obstructive pulmonary disease, but cannot exclude hypoventilation syndrome such as sleep apnea. 2. Chronic congestive heart failure. Patient manifests right pleural effusion. Suspect combination of left ventricular diastolic dysfunction and moderate pulmonary hypertension. 3. Atherosclerotic coronary artery disease with previous coronary artery bypass grafting in 2007. Patient is also status post implantable defibrillator in 2008. 4. Chronic atrial fibrillation. 5. Hyperlipidemia. 6. Peripheral vascular disease. RECOMMENDATIONS: 1. Continue BiPAP. 2. Thoracentesis on the right with ultrasound guidance tomorrow. Munira has been on hold in preparation for this. cc: MD Miguel Angel Woo MD
[2018-12-09] MEDS: ZOLOFT PO SCH (20:07)
[2018-12-09] MEDS: ELAVIL PO SCH (20:07)
[2018-12-09] MEDS: COLACE PO SCH (20:08)
[2018-12-10] MEDS: DUONEB (A & A) INH SCH ×6 (03:30→23:35)
[2018-12-10 04:58] LABS: ALLEN TEST YES; BE 6.3 mmoll (-3.0-3.0); BLOOD TYPE ARTERIAL; HCO3-(ACT) 29.8 mmoll (20.0-26.0); O2HB 93.9 % (95.0-99.0); PO2(98.6) 80 mmHg (60-100); SAMPLE BLOOD; THB 10.5 g/dL (11.5-17.4); pH(98.6) 7.32 (7.35-7.45)
[2018-12-10 05:02] LABS: MODALITY BI PAP; PCO2(98.6) 66 mmHg (35-45)
[2018-12-10] MEDS: NS 1,000 ML IV SCH ×2 (05:02→10:10)
[2018-12-10] MEDS: PROTONIX PO SCH ×2 (05:22→05:59)
[2018-12-10 08:42] LABS: INR 1.13; PROTIME 15.5 Seconds (11.0-16.0)
[2018-12-10 08:43] LABS: PTT 37.1 Seconds (22.3-41.8)
[2018-12-10] MEDS: ALDACTONE PO SCH (08:48)
[2018-12-10] MEDS: COLACE PO SCH ×2 (08:48→20:01)
[2018-12-10] MEDS: BETAPACE PO SCH ×2 (08:48→20:01)
[2018-12-10] MEDS: FLOMAX PO SCH (08:49)
--- NOTE | 2018-12-10 09:25 | PROGRESS NOTE ---
DATE: 12/10/2018 SUBJECTIVE: Mr. Christy is breathing a little better today. Feels a little better than yesterday. Still using the BiPAP as needed. CO2 seems to be up today, so the major problem he has still seems to be CO2 retention. We are going to try and tap his pleural effusions again today and see if that helps. OBJECTIVE: Vital signs: Temperature 97.7 degrees, pulse 79, respirations 19, blood pressure 106/73. HEENT: Pupils are equal and round. Lungs: Clear in all lung ricketts. Cardiovascular: Regular rhythm and rate without murmur or S3. Abdomen: Soft. Skin: Warm and dry. Urine output is 950 mL. LABORATORY DATA: Blood sugar 173, 268, 206. ASSESSMENT: 1. Recurrent hypercapnic respiratory failure, underlying chronic obstructive pulmonary disease, moderate elevation in pulmonary pressures, and I suspect some cor pulmonale and left ventricular dysfunction, predominantly diastolic. 2. Congestive heart failure. I think a combination of diastolic and systolic combined with moderate pulmonary arterial hypertension. 3. History of coronary artery disease. Had bypass grafting in 2007 and implantable defibrillator in 2008. 4. Chronic atrial fibrillation. 5. Hyperlipidemia. 6. Peripheral vascular disease. PLAN: We will stop his fluids. I will put him back on some Lasix and he is already on spironolactone. We will see if we can tap his pleural effusions. I think I may test him for heavy metal poisoning, although he denies any known exposure to it, but looking for causes of centrally caused CO2 retention. cc: Miguel Angel Mcintosh MD
[2018-12-10] MEDS: LASIX PO SCH (10:10)
--- NOTE | 2018-12-10 15:15 | Diag Imaging Result Doc PS360 ---
EXAM: CHEST-2 VIEWS INDICATION: POST THORA TECHNIQUE: 2 views COMPARISON: 12/09/2018 FINDINGS: There has been marked improvement of the right pleural effusion status post right thoracentesis to gross resolution by plain radiograph. There is residual subsegmental atelectasis at the right lung base. There is no evidence of pneumothorax status post thoracentesis. No new consolidations are identified. There is stable cardiomegaly. IMPRESSION: Marked improvement of right pleural effusion status post thoracentesis with no evidence of postprocedural pneumothorax. Electronically signed by Leonardo Tabares 12/10/2018 3:12 PM
--- NOTE | 2018-12-10 15:28 | Diag Imaging Result Doc PS360 ---
EXAM: US THORACENTESIS W/IMAGE GUIDE INDICATION: right sided pleural effusion, recurrent TECHNIQUE: COMPARISON: 10/08/2018 FINDINGS: Risks, benefits, and alternatives were discussed with the patient and informed consent was obtained. The patient was prepped and draped in sterile fashion and local anesthesia was achieved with 1% lidocaine solution. Using ultrasound guidance, a large bore catheter was inserted into the right pleural space and 1500 mL of kathryn serous fluid was aspirated. There were no known complications. A postprocedural chest radiograph showed no pneumothorax. IMPRESSION: Technically successful ultrasound-guided right thoracentesis. Electronically signed by Leonardo Tabares 12/10/2018 3:26 PM
[2018-12-10] MEDS: ELAVIL PO SCH (20:01)
[2018-12-10] MEDS: ZOLOFT PO SCH (20:01)
[2018-12-11] MEDS: DUONEB (A & A) INH SCH ×6 (02:50→23:20)
[2018-12-11 05:23] LABS: BLOOD TYPE ARTERIAL; SAMPLE BLOOD; pH(98.6) 7.35 (7.35-7.45)
[2018-12-11 05:24] LABS: BE 8.6 mmoll (-3.0-3.0); HCO3-(ACT) 31.6 mmoll (20.0-26.0); METHB 0.4 % (0.0-1.5); O2(CT) 13.8 mL/dL (15.0-23.0); O2HB 95.7 % (95.0-99.0); PO2(98.6) 82 mmHg (60-100); SAO2 98.4 % (95.0-100.0); THB 10.2 g/dL (11.5-17.4)
[2018-12-11 05:25] LABS: MODALITY CANNULA; PCO2(98.6) 65 mmHg (35-45)
[2018-12-11] MEDS: PROTONIX PO SCH (06:02)
[2018-12-11 06:28] LABS: ALLEN TEST YES
--- NOTE | 2018-12-11 09:24 | PROGRESS NOTE ---
DATE: 12/11/2018 SUBJECTIVE: Mr. Christy does feel much better. He sitting up in a chair. I did get a thoracentesis yesterday. OBJECTIVE: He is afebrile, temperature 98.2 degrees, pulse 80, respirations 20, and blood pressure 134/59. Pupils are equal and round. Lungs are clear in all lung ricketts. Cardiovascular exam with regular rhythm and rate without murmur or S3. Abdomen is soft, nondistended. You can tell the swelling has gone down by his report. No pedal edema. Urine output 2500 mL. Blood sugar 206, 280, 289. Chest x-ray from yesterday with marked improvement, and right pleural effusion status post thoracentesis. No evidence of postprocedural pneumothorax. ASSESSMENT AND PLAN: 1. Recurrent hypercapnic respiratory failure, underlying chronic obstructive pulmonary disease, moderate elevation of pulmonary pressure, suspect some cor pulmonale, and left ventricular dysfunction, predominantly diastolic. 2. Congestive heart failure, diastolic and systolic, combined with moderate pulmonary hypertension and some pleural effusion. 3. Status post thoracentesis on the right, and drained off a little over a L. He is breathing better. 4. Coronary artery disease. History of bypass grafting in 2007 with implantable defibrillator in 2008. 5. Chronic atrial fibrillation. 6. Hyperlipidemia. 7. Peripheral vascular disease. LABORATORY: On review of his labs, we will repeat some electrolytes tomorrow morning, but clearly doing better. ASSESSMENT AND PLAN: He is eating better. Feels a little stronger. We will continue physical therapy. His fluids are down to 21 mL an hour. He is on his Betapace 80 mg b.i.d. I went ahead and sent off for heavy metal studies. cc: Miguel Angel Mcintosh MD
[2018-12-11] MEDS: COLACE PO SCH ×2 (09:42→20:55)
[2018-12-11] MEDS: ALDACTONE PO SCH (09:43)
[2018-12-11] MEDS: BETAPACE PO SCH ×2 (09:43→20:55)
[2018-12-11] MEDS: FLOMAX PO SCH (09:43)
[2018-12-11] MEDS: LASIX PO SCH (09:43)
[2018-12-11] MEDS: NS 1,000 ML IV SCH (17:15)
[2018-12-11] MEDS: ZOLOFT PO SCH (20:55)
[2018-12-11] MEDS: ELAVIL PO SCH (20:55)
[2018-12-12] MEDS: DUONEB (A & A) INH SCH ×2 (03:11→07:51)
[2018-12-12 04:58] LABS: BLOOD TYPE ARTERIAL; SAMPLE BLOOD
[2018-12-12 04:59] LABS: ALLEN TEST YES; BE 10.3 mmoll (-3.0-3.0); HCO3-(ACT) 32.9 mmoll (20.0-26.0); METHB 1.1 % (0.0-1.5); O2(CT) 14.5 mL/dL (15.0-23.0); PO2(98.6) 112 mmHg (60-100); SAO2 99.1 % (95.0-100.0); THB 10.6 g/dL (11.5-17.4); pH(98.6) 7.38 (7.35-7.45)
[2018-12-12 05:00] LABS: MODALITY CANNULA; PCO2(98.6) 63 mmHg (35-45)
[2018-12-12] MEDS: PROTONIX PO SCH ×2 (05:55→06:03)
[2018-12-12 06:02] LABS: AGAP 8; BUN 21 mg/dL (8-22); CALCIUM 8.5 mg/dL (8.8-10.2); CHLORIDE 100 mmol/L (98-107); COSMO 289; CREATININE 0.9 mg/dL (0.7-1.2); ESTIMATED GFR > 60; GLUCOSE 193 mg/dL (70-104); MAGNESIUM 1.7 mg/dL (1.5-2.7); SODIUM 141 mmol/L (136-145); TCO2 33 mmol/L (25-35)
[2018-12-12 08:09] VITALS: BP 134/65
[2018-12-12] MEDS ORDERED: LASIX IV ONE (08:26)
[2018-12-12] MEDS: ALDACTONE PO SCH (09:20)
[2018-12-12] MEDS: COLACE PO SCH (09:20)
[2018-12-12] MEDS: FLOMAX PO SCH (09:20)
[2018-12-12] MEDS: LASIX PO SCH (09:20)
[2018-12-12] MEDS: BETAPACE PO SCH (09:21)
--- NOTE | 2018-12-12 09:32 | DISCHARGE SUMMARY ---
ADMISSION DATE: 12/05/2018 DISCHARGE DATE: 12/12/2018 HISTORY AND HOSPITAL COURSE: This is an 83-year-old male patient of mine. He came in again with shortness of breath, weakness, lethargy, and he had CO2 retention so CO2 or hypercapnic respiratory failure. We suspect it is a combination of his moderate pulmonary hypertension and cor pulmonale. Left ventricular diastolic and systolic dysfunction, obstructive apnea. X-ray did not show large pleural effusion, however; when we did a CT of his chest, I did see increased pleural effusion again, so thoracentesis was done. He was put on BiPAP from the time he came in and wore BiPAP intermittently. Showed steady improvement. I did give him some fluid back. Initially, his blood pressure was low and then we put him back on his diuretic. He did start eating again, felt better. He is on home constant O2 and I think he would benefit from CPAP. He is supposed to get a sleep study in the next couple days. Electrolytes were replenished. Renal function seemed to hold pretty good. DISCHARGE MEDICATIONS: 1. Elavil 10 mg at bedtime. 2. Colace 200 mg b.i.d., 3. Lasix 40 mg once a morning. 4. Protonix 40 mg daily. 5. Zoloft 25 mg at bedtime. 6. Aldactone 12.5 mg a day. 7. Betapace 80 mg b.i.d. PLAN: I will follow him back in a couple weeks. He will see Dr. Mackey, his applique cutter, in about a week. He is supposed to get a sleep study done as well. I want him to weigh him everyday. If he jumps up 2 pounds, we will increase his Lasix to twice a day until we get back down to his base weight. His weight on his arrival was 181. We will get a weight before he leaves as a baseline. cc: Miguel Angel Mcintosh MD
--- NOTE | 2018-12-12 13:48 | PROGRESS NOTE ---
DATE: 12/12/2018 SUBJECTIVE: Patient relates feeling much better. He denies shortness of breath on nasal cannula oxygen. There has been no chest pain. OBJECTIVE: Vital Signs: Blood pressure 134/65, heart rate 72 and regular. Oxygen saturation 96%. Neck: Jugular venous distention is present suggesting elevated central venous pressure at approximately 10 to 12 cm. Chest: Auscultation of chest reveals inspiratory crackles in the right base posteriorly. Patient previously had diminished breath sounds in this region. Cardiac: Revealed an irregular rate and rhythm without appreciable murmur or gallop. Extremities: Without edema. LABORATORY DATA: Arterial blood gas with pH 7.3, pCO2 of 63, PO2 of 112 on nasal cannula oxygen at 2 L/minute. Sodium 141, potassium 4.0, chloride 100, carbon dioxide 33, BUN 21, creatinine 0.9. Glucose 193. IMPRESSION: 1. Recurrent hypercapnic respiratory failure. The patient has improved with BiPAP and thoracentesis. 2. Chronic congestive heart failure. The patient has predominantly right-sided congestive heart failure which appears to be reemerging. There is mild neck vein distention demonstrated. 3. Atherosclerotic coronary disease with previous coronary bypass grafting in 2007. 4. Chronic atrial fibrillation. 5. Hyperlipidemia. 6. Peripheral vascular disease. RECOMMENDATIONS: 1. Resume Lasix. We will give a small dose of IV Lasix today. 2. Reasonable for patient to be discharged to home. I will see her back in 1 week to reassess volume status. cc: MD Miguel Angel Woo MD
== END 2018-12-12 11:11 | disposition home or self-care (01) | DRG 189 ==
LOC: SUPCPDRO → ED 13:09 → EDIPHOLD 17:37 → 3S 18:05 → EDIPHOLD 18:25 → 3S 20:32
PROVIDERS: ADMIT Emergency Medicine; ATTEND Emergency Medicine
CPT/HCPCS: 32421; 32555; 71010; 71020; 71045; 71046; 71250; 80048; 80053; 81050; 82175; 82300; 82482; 82805; 82948; 83519; 83655; 83735; 83825; 83880; 84443; 84484; 85025; 85610; 85730; 93005; 94640; 94660; 94761; 97110; 97161; 97530; 99285; A9270; J1940; J7030; XXXXX